=== PATIENT | male | born 1950 | race Hispanic/Latino ===

== ENCOUNTER 2016-08-17 11:53 | Emergency (ER) | payer MEDICARE, BC ==
[2016-08-17 11:54] VITALS: PULSE 74; BMI 26.3
--- NOTE | 2016-08-17 12:13 | ED PDOC ---
Arrival/HPI - General Chief Complaint: Back Pain Time Seen by Provider: 08/17/16 12:00 - History of Present Illness Narrative History of Present Illness (Text): 08/17/16 12:28 Patient presents complaing of back pain. States the location is in the right lower lumbar region, feels like muscle spasms. Worst with movement and palpation. Pt states this feels identical to previous back pain quality that have happened in the past. Denies fevers/chills, denies IVDA, denies any lower extremity weakness/numbness/paresthesias. Pt denies saddle anesthesia. Denies any urinary freq or retention. Denies bowel dysfunction/irregularity/ incontinence/constipation. Patient's home delivery driver, his daughter, is with him. She states that patient has a history of dementia/Alzheimer's, and that he is acting baseline. Past Medical History - Provider Review Nursing Documentation Reviewed: Yes - Past History Past History: Non-Contributing - Infectious Disease Hx of Infectious Diseases: None - Tetanus Immunization Tetanus Immunization: Unknown - Cardiac Hx Cardiac Arrhythmia: Yes Hx Hypertension: Yes Hx Pacemaker: No - Pulmonary Hx Respiratory Disorders: No - Neurological Hx Dementia: Yes - Renal Hx Renal Disorder: No - Endocrine/Metabolic Hx Endocrine Disorders: No - Hematological/Oncological Hx Blood Disorders: No - Integumentary Hx Dermatological Disorder: No - Musculoskeletal/Rheumatological Hx Musculoskeletal Disorders: Yes Hx Back Pain: Yes Hx Falls: Yes - Gastrointestinal Hx Gastrointestinal Disorders: No - Genitourinary/Gynecological Hx Genitourinary Disorders: No - Psychiatric Hx Anxiety: Yes Hx Post Traumatic Stress Disorder: Yes Hx Substance Use: No - Surgical History Hx Coronary Stent: Yes - Anesthesia Hx Anesthesia Reactions: No Hx Malignant Hyperthermia: No - Suicidal Assessment Feels Threatened In Home Enviroment: No Family/Social History - Physician Review Nursing Documentation Reviewed: Yes Family/Social History: Unknown Family HX Smoking Status: Former Smoker Hx Alcohol Use: Yes (SOCIAL- BEER) Hx Substance Use: No Hx Substance Use Treatment: No Allergies/Home Meds Allergies/Adverse Reactions: Allergies No Known Allergies Allergy (Verified 08/17/16 12:03) Home Medications: Home Meds Medication Instructions Recorded Confirmed Enalapril Maleate [Vasotec] 5 mg PO BID 12/16/15 03/23/16 Hydrochlorothiazide [HCTZ] 25 mg PO DAILY 12/16/15 03/23/16 Aspirin [Aspirin Chewable] 81 mg PO DAILY 03/23/16 03/23/16 Atorvastatin [Lipitor] 10 mg PO DAILY 03/23/16 03/23/16 Donepezil HCl [Aricept Odt] 5 mg PO HS 03/23/16 03/23/16 Fexofenadine HCl [Julieta NF] 180 mg PO DAILY 03/23/16 03/23/16 Fluticasone Nasal [Flonase] 1 spr BAYLEE DAILY 03/23/16 03/23/16 Naproxen 500 mg PO BID 03/23/16 03/23/16 Review of Systems - Physician Review All systems were reviewed & negative as marked: Yes Physical Exam - Physical Exam Narrative Physical Exam (Text): 08/17/16 12:29 - Review of Systems Constitutional: Normal. absent: Fatigue, Weight Change, Fevers Eyes: Normal ENT: denies sore throat, denies tristhmus Respiratory: Normal. absent: SOB, Cough, Sputum Cardiovascular: absent: Chest Pain, Palpitations, Syncope Gastrointestinal: Normal. absent: Abdominal Pain, Diarrhea, Nausea, Vomiting Genitourinary: Normal. absent: Dysuria, Frequency, Hematuria Musculoskeletal: Back Pain. absent: Arthralgias, Neck Pain Skin: no rashes, no erythema Neurological: absent: Focal Weakness Endocrine: Normal Hemo/Lymphatic: Normal Psychiatric: No suicidal or homicidal ideations Physical exam Patient appears age appropriate in no distress, speaking full sentences without difficulty Increased hypertonicity appreciated in the right lower lumbar region, pain quality reproduced with palpation of right PSIS. No midline tenderness. FROM of pt's cervical, thoracic, lumbar, and sacral regions appreciated, active/passive without any difficulty. Lower extremities with full neurological and vascular intact. Steady gait. - Systems Exam Head: Present: Atraumatic, Normocephalic Pupils: Present: PERRL Extroacular Muscles: Present: EOMI Conjunctiva: Present: Normal Mouth: Present: Moist Mucous Membranes Neck: Present: Normal Range of Motion. No: MIDLINE TENDERNESS, Paraspinal Tenderness Respiratory/Chest: Present: Clear to Auscultation, Good Air Exchange. No: Respiratory Distress, Accessory Muscle Use, Tachypneic Cardiovascular: Present: Regular Rate and Rhythm, Normal S1, S2, Peripheal Pulses Present. No: Murmurs Abdomen: Present: Normal Bowel Sounds. No: Tenderness, Distention, Peritoneal Signs, Rebound, Guarding Back: Present: Normal Inspection. No: Midline Tenderness, Paraspinal Tenderness Upper Extremity: Present: Normal Inspection. No: Cyanosis, Edema Lower Extremity: Present: Normal Inspection. No: Edema Neurological: Present: GCS=15, Speech Normal, cranial nerves II through XII fully intact with no cerebellar abnormality, neurosensory fully intact. No focal neurological deficits. Ambulates with assistance. Baseline as per daughter. Skin: Present: Warm, Dry, Normal Color. No: Rashes Lymphatic: Present: OX3, NI, NC Vital Signs Reviewed: Yes Vital Signs Temp Pulse Resp BP Pulse Ox 08/17/16 11:55 97.4 F L 90 18 121/76 97 Temperature: Afebrile Blood Pressure: Normal Pulse: Regular Respiratory Rate: Normal Appearance: Positive for: Well-Appearing, Non-Toxic Pain Distress: None Mental Status: No: Agitated, Lethargic Medical Decision Making ED Course and Treatment: pt received Toradol reported symptomatic relief. Pt states is not driving home. Based on hx and physical, no suspicion for renal involvement, cord impingement or epidural/spinal abscess stable for dc home. Patient's daughter states that she will follow-up with an network applications specialist as well as patient's primary physician Pt verbalized understands to return to the ER right away for new or worsening symptoms or for inability to f/u with PMD or specialist as instructed. Patient's home delivery driver verbalized full agreement with and understanding of discharge instructions. States that she agrees with the plan and disposition. Verbalized and repeated discharge instructions and plan. I have given the patient opportunity to ask any additional questions. Prior Visits: Notes and results from previous visits were reviewed. Patient last seen in the ED on 03/23/16 for lower back pain and discharged home with Percocet. CT Lumbar Spine 03/23/16: IMPRESSION: Bilateral spondylolysis at L5 with spondylolisthesis at L5-S1. Moderate stenosis at L4-5 and mild stenosis at L3-4 - Medication Orders Current Medication Orders: Ketorolac Tromethamine (Toradol) 30 mg IM STAT STA Stop: 08/17/16 12:27 - Scribe Statement The provider has reviewed the documentation as recorded by the Lucille Pascal Provider Scribe Attestation: All medical record entries made by the Scribe were at my direction and personally dictated by me. I have reviewed the chart and agree that the record accurately reflects my personal performance of the history, physical exam, medical decision making, and the department course for this patient. I have also personally directed, reviewed, and agree with the discharge instructions and disposition. Disposition/Present on Arrival - Present on Arrival Any Indicators Present on Arrival: No History of DVT/PE: No History of Uncontrolled Diabetes: No Urinary Catheter: No History of Decub. Ulcer: No History Surgical Site Infection Following: None - Disposition Have Diagnosis and Disposition been Completed?: Yes Diagnosis: Back pain Disposition: HOME/ ROUTINE Disposition Time: 12:36 Patient Plan: Discharge Condition: GOOD Discharge Instructions (ExitCare): Chronic Back Pain (ED) Additional Instructions: PLEASE RETURN TO THE EMERGENCY DEPARTMENT FOR NEW OR WORSENING SYMPTOMS. RETURN RIGHT AWAY IF YOU CANNOT FOLLOW UP WITH YOUR PRIMARY CARE DOCTOR, CLINIC, OR SPECIALIST IN 1-2 DAYS. Please take either [id number] Motrin or Tylenol for pain Do not take Motrin with your prescription Naprosyn together Referrals: Esteban Powell MD [Staff Provider] - Follow up with primary Quan Mo MD [Staff Provider] - Follow up with primary Castro Llamas DO [Staff Provider] - Follow up with primary Rajendra Neal III, MD [Medical Doctor] - Follow up with primary Antonio Obando MD [Staff Provider] - Follow up with primary
[2016-08-17 12:28] VITALS: BP 121/76; PULSE 90; RESP 18; TEMP 97.4; O2SAT 97
== END 2016-08-17 12:44 | disposition home or self-care (01) ==
LOC: ED 11:53
DX: M54.9 Dorsalgia, unspecified (principal); I10 Essential (primary) hypertension; Z87.891 Personal history of nicotine dependence
CPT/HCPCS: 96372; 99282; J1885

== ENCOUNTER 2016-09-07 09:19 | Inpatient (IN) | payer MEDICARE, BC ==
[2016-09-07 09:19] VITALS: PULSE 74
[2016-09-07 09:50] VITALS: BMI 24.3
--- NOTE | 2016-09-07 10:18 | ED PDOC ---
Arrival/HPI - General Chief Complaint: Trauma Time Seen by Provider: 09/07/16 09:39 Historian: Patient - History of Present Illness Narrative History of Present Illness (Text): 09/07/16 09:58 Sam Shea is a 66 year old male whose past medical history includes Hypertension, Alzheimer, Thyroid Problems, and Excess Fluid of the Brain most likely Hydrocephalus, who presents to the emergency department because as per daughter the patient is becoming increasingly confused and disoriented. Also as per daughter the patient hasn't urinated since yesterday and has been falling more frequently nor is the patient willing/able to walk. The patient himself complains of abdominal discomfort, a mild headache and states he feels confused. Patient/daughter otherwise denies any fever, chills, chest pain, shortness of breath, nausea, vomiting, diarrhea, urinary symptoms, back pain, neck pain, dizziness, or any other complaints. PMD: Esteban Batista MD English Division Chair: Francisco Garza MD Time/Duration: 1 week Symptom Onset: Gradual Symptom Course: Worsening Activities at Onset: Light Context: Home Past Medical History - Provider Review Nursing Documentation Reviewed: Yes - Past History Past History: Non-Contributing - Infectious Disease Hx of Infectious Diseases: None - Tetanus Immunization Tetanus Immunization: Unknown - Cardiac Hx Cardiac Arrhythmia: Yes Hx Hypertension: Yes Hx Pacemaker: No - Pulmonary Hx Respiratory Disorders: No - Neurological Hx Alzheimer's Disease: Yes Hx Dementia: Yes - Renal Hx Renal Disorder: No - Endocrine/Metabolic Hx Endocrine Disorders: No - Hematological/Oncological Hx Blood Disorders: No - Integumentary Hx Dermatological Disorder: No - Musculoskeletal/Rheumatological Hx Musculoskeletal Disorders: Yes Hx Back Pain: Yes Hx Falls: Yes - Gastrointestinal Hx Gastrointestinal Disorders: No - Genitourinary/Gynecological Hx Genitourinary Disorders: No - Psychiatric Hx Anxiety: Yes Hx Post Traumatic Stress Disorder: Yes Hx Substance Use: No - Surgical History Hx Coronary Stent: Yes - Anesthesia Hx Anesthesia: Yes Hx Anesthesia Reactions: No Hx Malignant Hyperthermia: No - Suicidal Assessment Feels Threatened In Home Enviroment: No Family/Social History - Physician Review Nursing Documentation Reviewed: Yes Family/Social History: No Known Family HX Smoking Status: Former Smoker Hx Alcohol Use: Yes (SOCIAL- BEER) Hx Substance Use: No Hx Substance Use Treatment: No Allergies/Home Meds Allergies/Adverse Reactions: Allergies No Known Allergies Allergy (Verified 08/17/16 12:03) Home Medications: Home Meds Medication Instructions Recorded Confirmed Enalapril Maleate [Vasotec] 5 mg PO BID 12/16/15 09/07/16 Hydrochlorothiazide [HCTZ] 25 mg PO DAILY 12/16/15 09/07/16 Aspirin [Aspirin Chewable] 81 mg PO DAILY 03/23/16 09/07/16 Atorvastatin [Lipitor] 10 mg PO DAILY 03/23/16 09/07/16 Donepezil HCl [Aricept Odt] 5 mg PO HS 03/23/16 09/07/16 Fexofenadine HCl [Julieta NF] 180 mg PO DAILY 03/23/16 09/07/16 Naproxen 500 mg PO BID 03/23/16 09/07/16 Review of Systems - Physician Review All systems were reviewed & negative as marked: Yes - Review of Systems Constitutional: Normal. absent: Fevers Eyes: Normal ENT: Normal Respiratory: Normal. absent: SOB, Cough Cardiovascular: Normal. absent: Chest Pain Gastrointestinal: Abdominal Pain. absent: Diarrhea, Nausea, Vomiting Genitourinary Male: Normal. absent: Dysuria, Frequency, Hematuria, Urinary Output Changes Musculoskeletal: Normal. absent: Back Pain, Neck Pain Skin: Normal Neurological: Headache, Other (Confused/Disoriented). absent: Dizziness Endocrine: Normal Hemo/Lymphatic: Normal Psychiatric: Normal Physical Exam Vital Signs Reviewed: Yes Vital Signs Temp Pulse Resp BP Pulse Ox 09/07/16 13:30 95 H 95 09/07/16 13:28 90 11 L 157/75 H 97 09/07/16 13:24 94 L 09/07/16 12:35 84 16 115/81 99 09/07/16 09:36 98.0 F 90 18 122/72 98 Temperature: Afebrile Blood Pressure: Normal Pulse: Regular Respiratory Rate: Normal Appearance: Positive for: Non-Toxic, Comfortable, Ill-Appearing (Appears Weak) Pain Distress: None Mental Status: Positive for: Alert and Oriented X 3 - Systems Exam Head: Present: Atraumatic, Normocephalic Pupils: Present: PERRL (4mm equally reactive) Extroacular Muscles: Present: EOMI Conjunctiva: Present: Normal Mouth: Present: Moist Mucous Membranes Neck: Present: Normal Range of Motion Respiratory/Chest: Present: Clear to Auscultation, Good Air Exchange. No: Respiratory Distress, Accessory Muscle Use Cardiovascular: Present: Regular Rate and Rhythm, Normal S1, S2. No: Murmurs Abdomen: Present: Distention (Mildly Distended), Normal Bowel Sounds. No: Tenderness, Peritoneal Signs Lower Extremity: Present: Normal Inspection. No: Edema Neurological: Present: GCS=15, CN II-XII Intact, Speech Normal Skin: Present: Warm, Dry, Normal Color. No: Rashes Psychiatric: Present: Alert, Oriented x 3, Normal Insight, Normal Concentration Medical Decision Making ED Course and Treatment: 09/07/16 09:58 Impression: 66 year old male presenting due to increasingly becoming confused and weak. Differential Diagnosis include but are not limited to: AMS, Weakness r/o Worsening Hydrocephalus vs Electrolyte Abnormality vs Sepsis; Abdominal Pain/ Distention r/o Ascites r/o Obstruction Plan: -- Abd & Pel CT -- Head CT -- EKG -- Labs, cardiac enzymes, Urinalysis, Blood & Urine Cultures -- Reassess and disposition Prior Visits: Notes and results from previous visits were reviewed. Patient was last seen in the emergency department on 08/17/16 for abdominal and back pain. Progress Notes: EKG: Ordered, reviewed, and independently interpreted the EKG. Rate : 89 BPM Rhythm : NSR Interpretation : LBBB, PVCs 09/07/16 11:20 Sodium levels 109. 09/07/16 11:37 Case was discussed with Dr. Alarcon who is covering for the ICU and he agreed to accept patient to the ICU. He agrees with plan of NS IV at 100 mls/hr at this time and he will access further treatment. Case discussed with Dr. Goldstein ICU Resident who will f/u CT exams and results that are pending. Plan was discussed with patient and daughter who was at bedside. 09/07/2016 12:39 Procedure: CT Head Dictator : Bernardo Moody MD Impression: No acute intracranial hemorrhage. Moderate chronic white matter ischemic changes. Persistent dilatation of the lateral and 3rd ventricles on as above. Findings could be secondary to central volume loss however differential diagnosis would also include a chronic compensated obstructive hydrocephalus. The normal pressure hydrocephalus to be considered only if the clinical triad of dementia, ataxia and incontinence present. Overall the appearance of the ventricles are unchanged. 09/07/16 13:48 Procedure: CT Abdomen and Pelvis Dictator : Bernardo Moody MD Impression: Large pancreatic masses are likely representing pancreatic carcinoma. Multiple low-attenuation foci scattered throughout the liver consistent metastasis however multifocal hepatocellular carcinoma not excluded.Findings also suggest underlying cirrhosis with slightly nodular appearing liver surface contour, varices in the left upper quadrant of the abdomen and massive ascites. Hyperdense material within the dependent portion of the gallbladder could represent layering hyperdense sludge or gravel. See discussion for additional findings and details. CT results obtained. Dr. Beltrán, ICU attending made aware and she will discuss with Dr. Alarcon. She will also place a consult for Neurosx for Hydrocephalus. - Critical Care Critical Care Minutes: 30 minutes - Lab Interpretations Lab Results: 09/07/16 10:37 09/07/16 10:37 Lab Results 09/07/16 10:37: Sodium 109 L* D, Potassium 3.7, Chloride 75 L, Carbon Dioxide 26 , Anion Gap 12, BUN 17, Creatinine 0.8, Est GFR ( Amer) > 60, Est GFR ( Non-Af Amer) > 60, Random Glucose 128 H, Calcium 8.8, Phosphorus 3.4, Magnesium 2.0, Total Bilirubin 1.0, AST 48, ALT 46, Alkaline Phosphatase 82, Lactate Dehydrogenase 572, Total Creatine Kinase 218, Troponin I 0.02 D, Total Protein 6.9, Albumin 3.7, Globulin 3.1, Albumin/Globulin Ratio 1.2 09/07/16 10:37: PT 11.3, INR 1.05, APTT 29.7 09/07/16 10:37: WBC 7.4 D, RBC 3.62, Hgb 10.5 L, Hct 28.4 L, MCV 78.5 L, MCH 29.0, MCHC 37.0, RDW 12.4, Plt Count 159, MPV 8.5, Gran % 87.9 H, Lymph % (Auto ) 5.8 L, Otoe % (Auto) 5.5, Eos % (Auto) 0.7 L, Baso % (Auto) 0.1, Gran # 6.50, Lymph # 0.4 L, Otoe # 0.4, Eos # 0.1, Baso # 0.01 09/07/16 10:10: Urine Color Yellow, Urine Appearance Clear, Urine pH 6.5, Ur Specific [place] 1.015, Urine Protein Negative, Urine Glucose (UA) Negative, Urine Ketones Trace H, Urine Blood Negative, Urine Nitrate Negative, Urine Bilirubin Negative, Urine Urobilinogen 1.0 H, Ur Leukocyte Esterase Negative I have reviewed the lab results: Yes - RAD Interpretation Narrative RAD Interpretations (Text): 09/07/2016 12:39 Procedure: CT Head Dictator : Bernardo Moody MD FINDINGS: HEMORRHAGE: No intracranial hemorrhage. BRAIN: Moderate chronic white matter ischemic changes seen extending peripherally into the deep and subcortical white matter both cerebral hemispheres. . VENTRICLES: Significant enlargement of the 3rd and lateral ventricles with the normal- appearing 4th ventricle. Findings are likely due to central volume loss however the possibility chronic compensated obstructive hydrocephalus to be considered. Normal pressure hydrocephalus to be considered only the clinical triad of dementia, ataxia and incontinence present. Overall the appearance of the ventricles are unchanged CALVARIUM: No acute calvarial fractures. PARANASAL SINUSES: Mild mucosal thickening seen within the ethmoid air complex. MASTOID AIR CELLS: Unremarkable as visualized. No inflammatory changes. OTHER FINDINGS: None. Impression: No acute intracranial hemorrhage. Moderate chronic white matter ischemic changes. Persistent dilatation of the lateral and 3rd ventricles on as above. Findings could be secondary to central volume loss however differential diagnosis would also include a chronic compensated obstructive hydrocephalus. The normal pressure hydrocephalus to be considered only if the clinical triad of dementia, ataxia and incontinence present. Overall the appearance of the ventricles are unchanged. 09/07/16 13:48 Procedure: CT Abdomen and Pelvis Dictator : Bernardo Moody MD FINDINGS: LOWER THORAX: There are multiple small nodular opacity seen in the right lung base with atelectasis and or scarring in the left lung base. No basilar pneumothorax. Heart is enlarged. No significant pericardial effusion. LIVER: The liver is diminutive and contains multiple varying sized foci of low attenuation. Findings may represent hepatic metastasis however possibility of multi focal opacity carcinoma to be excluded. Liver exhibits a slight nodular surface contour and there are multiple serpiginous enhancing vessels in the left upper quadrant of the abdomen with massive ascites. Findings also likely represent concomitant underlying cirrhosis with portal hypertension. GALLBLADDER AND BILE DUCTS: Gallbladder is physiologically distended. Layering radio-opaque sludge and or gravel the dependent portion of the gallbladder. PANCREAS: There is a large is (5.24 trans x 3.61 AP 3.25 cc) ill-defined mass seen within mid body and pancreatic head region most likely represents a pancreatic carcinoma. SPLEEN: The spleen exhibits normal size measuring 11.15 cm. No splenic mass collection or calcification. ADRENALS: Small approximately 11 mm right adrenal hypodense nodule. The left adrenal gland is mildly enlarged and somewhat nodular in appearance with a small approximately 5.6 mm calcification KIDNEYS AND URETERS: The kidneys exhibit symmetric nephrograms. No evidence of nephrolithiasis. There is mild dilatation of the left renal collecting system left renal pelvis and and proximal left ureter over short distance. Rule out chronic UPJ. There are several small rounded/elliptical shaped low-attenuation foci both kidneys statistically likely representing renal cysts however ultrasound correlation could confirm. VASCULATURE: The abdominal vasculature grossly unremarkable. No evidence of abdominal aortic aneurysm. Calcified atherosclerotic plaque present along the abdominal aorta and iliac arteries. BOWEL: Evaluation of the bowel is somewhat limited due to CT of the lack of oral contrast material and massive ascites. Stomach is underdistended which presumably accounts for thick-walled appearance. Visualized loops of small bowel exhibit normal caliber and contour without evidence of acute mechanical bowel obstruction. Mild wall thickening of loops of small bowel could be due to ascites. Stool and air seen throughout the colon consistent with mild fecal retention/ constipation. No evidence of acute mechanical bowel obstruction. APPENDIX: Appendix not seen with certainty on this study. PERITONEUM: No gross free intraperitoneal air. LYMPH NODES: There appears to be retro several small retroperitoneal and peripancreatic lymph nodes. BLADDER: Urinary bladder is incompletely distended which may account for thick-walled appearance. Muscular hypertrophy presumably contributes. Possibility of cystitis not excluded REPRODUCTIVE: Unremarkable. BONES: Multilevel degenerative spondylosis of the lower thoracic and lumbar spine. Bilateral pars interarticularis and grade 1 spondylolisthesis L5-S1 level. OTHER FINDINGS: None. Impression: Large pancreatic masses are likely representing pancreatic carcinoma. Multiple low-attenuation foci scattered throughout the liver consistent metastasis however multifocal hepatocellular carcinoma not excluded.Findings also suggest underlying cirrhosis with slightly nodular appearing liver surface contour, varices in the left upper quadrant of the abdomen and massive ascites. Hyperdense material within the dependent portion of the gallbladder could represent layering hyperdense sludge or gravel. See discussion for additional findings and details. Radiology Orders: 09/07/16 10:10 HEAD W/O CONTRAST [CT] Stat 09/07/16 10:13 ABD & PELVIS IV CONTRAST ONLY [CT] Stat Outpatient Physical Therapist Assistant: Radiologist - EKG Interpretation Interpreted by ED Physician: Yes Type: 12 lead EKG - Medication Orders Current Medication Orders: Acetaminophen (Tylenol 325mg Tab) 650 mg PO Q6H PRN PRN Reason: Fever >100.4 F Sodium Chloride (Sodium Chloride 0.9%) 1,000 mls @ 100 mls/hr IV .Q10H TEODORO Last Admin: 09/07/16 11:00 Dose: 100 mls/hr Ceftriaxone Sodium (Rocephin 2 Gm Ivpb) 2 gm in 100 mls @ 100 mls/hr IVPB DAILY TEODORO PRN Reason: Protocol Ondansetron HCl (Zofran Inj) 4 mg IVP Q8H PRN PRN Reason: Nausea/Vomiting Discontinued Medications Iohexol (Omnipaque 350 100 Ml) Confirm Administered Dose 350 mg .ROUTE .[facility] Stop: 09/07/16 11:33 - Scribe Statement The provider has reviewed the documentation as recorded by the Trentibmakayla Jones Provider Attestation: All medical record entries made by the Scribmakayla were at my direction and personally dictated by me. I have reviewed the chart and agree that the record accurately reflects my personal performance of the history, physical exam, medical decision making, and the department course for this patient. I have also personally directed, reviewed, and agree with the discharge instructions and disposition. Disposition/Present on Arrival - Present on Arrival Any Indicators Present on Arrival: No History of DVT/PE: No History of Uncontrolled Diabetes: No Urinary Catheter: No History of Decub. Ulcer: No History Surgical Site Infection Following: None - Disposition Have Diagnosis and Disposition been Completed?: Yes Diagnosis: Altered mental status, Ascites, Pancreatic mass, Hydrocephalus, Hyponatremia Disposition: HOSPITALIZED Disposition Time: 11:37 Patient Plan: Admission, ICU Condition: CRITICAL
[2016-09-07 10:38] LABS: ADD MANUAL DIFF? NO
[2016-09-07 10:43] LABS: BASO # 0.01 K/mm3 (0.0-2.0); BASO % 0.1 % (0.0-3.0); EOS # 0.1 (0.0-0.7); EOS % 0.7 % (1.5-5.0); GRAN % 87.9 % (50.0-68.0); HEMATOCRIT 28.4 % (42.0-52.0); LYMPH # 0.4 (1.2-3.4); LYMPH % 5.8 % (22.0-35.0); MEAN CELL VOLUME 78.5 fL (80.0-105.0); MEAN PLATELET VOLUME 8.5 fl (7.0-11.0); MONO # 0.4 (0.1-0.6); MONO % 5.5 % (1.0-6.0); PLATELET COUNT 159 10^3/uL (120.0-450.0); RED CELL DISTRIBUTION WIDTH 12.4 % (11.5-14.5); WHITE BLOOD COUNT 7.4 10^3/ul (4.5-11.0)
[2016-09-07 10:53] LABS: ALB/GLOB RATIO 1.2 (1.1-1.8); ALKALINE PHOSPHATASE 82 U/L (38-133); ALT/SGPT 46 U/L (7-56); AST/SGOT 48 U/L (15-59); BLOOD UREA NITROGEN 17 mg/dL (7-21); CALCIUM 8.8 mg/dL (8.4-10.5); CARBON DIOXIDE 26 mmol/L (21-33); CHLORIDE 75 mmol/L (98-107); GFR AFRICAN-AMERICAN > 60; GLUCOSE,RANDOM 128 mg/dL (70-110); INR 1.05 (0.93-1.08); PARTIAL THROMBOPLASTIN TIME 29.7 Seconds (23.7-30.8); PHOSPHOROUS 3.4 mg/dL (2.5-4.5); POTASSIUM 3.7 mmol/L (3.6-5.0); TOTAL PROTEIN 6.9 g/dL (5.8-8.3)
[2016-09-07 10:55] LABS: SODIUM 109 mmol/L (132-148)
[2016-09-07 10:59] LABS: PH,URINE 6.5 (4.7-8.0); URINE BILIRUBIN NEGATIVE (NEGATIVE); URINE BLOOD NEGATIVE (NEGATIVE); URINE GLUCOSE (UA) NEGATIVE (NEGATIVE); URINE KETONE TRACE mg/dL (NEGATIVE); URINE LEUKOCYTE ESTERASE NEGATIVE Leu/uL (NEGATIVE); URINE PROTEIN NEGATIVE mg/dL (<30 mg/dL)
[2016-09-07] MEDS ORDERED: Sodium Chloride 0.9% 1,000 ML IV SCH (11:00)
[2016-09-07 11:04] LABS: TROPONIN I 0.02 ng/mL
[2016-09-07 11:09] LABS: URINE APPEARANCE CLEAR (CLEAR); URINE COLOR YELLOW (YELLOW)
[2016-09-07] MEDS ORDERED: Iohexol 350 MG/100 ML VIAL ONE (11:32)
--- NOTE | 2016-09-07 12:14 | CP.PCM.CON ---
History of Present Illness - History of Present Illness History of Present Illness: PGY-[address] Richardson Alarcon ICU Consult: AMS on setting of hyponatremia 66 M, whose PMHx includes Alzheimer, CAD s/p stents, CHF (diastolic and systolic ), HTN, Thyroid Problems, and chronic Hydrocephalus, presents to the emergency department because as per daughter the patient is becoming increasingly confused , lost of balance, falls, and generalized weakness x 1 week. At baseline, pt was AAOx3, able to ambulate with wide step shuffling gaits with support, rarely having urinary incontinence. 1 week ago, daughter noticed pt has increase confusion, falling several times, having bowel and bladder incontinence. Pt hasn 't urinated since yesterday and has been falling more frequently nor is the patient willing/able to walk. The patient himself complains of abdominal discomfort, a mild headache and states he feels confused. Pt is a poor historian ROS - (+) New dry cough x 2 days. (+) abdominal pain general. (+) no urination. Patient/daughter otherwise denies any fever, chills, chest pain, shortness of breath, nausea, vomiting, diarrhea, dizziness, or any other complaints. At ED arrival Temp 98, HR 80, RR 18, 122/72. 98RA WBC 7.4, Hb 10.5 (baseline 13), MCV 78.5, plt nl Na 109, K 3.7, Cl 75, CO 26 BUN 17, Cre 0.8 Trop 0.02, CK 218 U/A (+) ketone and urobinlniogen Blood and urine culture sent EKG, NSR 89, LBBB, PVCs CT scan head - hydrocephalus, no change CT abd/pelvis with IV - pancreas and liver masses, massive ascites Straight cath at ED = 650cc. Gu at ED = 300cc On NS @ 100 PMH Chronic hydrocephalus, s/p lumbar puncture for CSF removal; pt refused shunt Hx cerebral ventricular dilatation, stable (CT head 2-16) CAD with multiple vessel PTCA/Stents (LAD, RCA) Dilated cardiomyopathy with systolic dysfunction, LVEF 49% (Echo 2014) PTSD, anxiety PSH Cardiac cath and stents Ventral hernia repair FH Prostate cancer "GI issues" SH Former smoker, last smoke 30 years ago 5 beer per day for many years, last drink 2 weeks ago All NKDA Med ASA 81, Lipitor 10 Enalapril 5 BID, HCTZ 25 daily Donepezil 5 HS Julieta 180, Flonase 1 spr BAYLEE Naproxen 500 BID PRN for back pain PMD: Esteban Batista MD Assignment Officer: Francisco Garza MD Neurologist: Dr Lee Urology: Dr. Mathews GI: Dr. George Past Patient History - Infectious Disease Hx of Infectious Diseases: None - Tetanus Immunizations Tetanus Immunization: Unknown - Past Social History Smoking Status: Former Smoker - CARDIAC Hx Cardia Arrhythmia: Yes Hx Hypertension: Yes Hx Pacemaker: No - PULMONARY Hx Respiratory Disorders: No - NEUROLOGICAL Hx Alzheimer's Disease: Yes Hx Dementia: Yes - RENAL Hx Chronic Kidney Disease: No - ENDOCRINE/METABOLIC Hx Endocrine Disorders: No - HEMATOLOGICAL/ONCOLOGICAL Hx Blood Disorders: No - INTEGUMENTARY Hx Dermatological Problems: No - MUSCULOSKELETAL/RHEUMATOLOGICAL Hx Musculoskeletal Disorders: Yes Hx Back Pain: Yes Hx Falls: Yes - GASTROINTESTINAL Hx Gastrointestinal Disorders: No - GENITOURINARY/GYNECOLOGICAL Hx Genitourinary Disorders: No - PSYCHIATRIC Hx Anxiety: Yes Hx Post Traumatic Stress Disorder: Yes Hx Substance Use: No - SURGICAL HISTORY Hx Coronary Stent: Yes - ANESTHESIA Hx Anesthesia: Yes Hx Anesthesia Reactions: No Hx Malignant Hyperthermia: No Meds Allergies/Adverse Reactions: Allergies Allergy/AdvReac Type Severity Reaction Status Date / Time No Known Allergies Allergy Verified 08/17/16 12:03 - Medications Medications: Current Medications Sodium Chloride (Sodium Chloride 0.9%) 1,000 mls @ 100 mls/hr IV .Q10H TEODORO Last Admin: 09/07/16 11:00 Dose: 100 mls/hr Physical Exam - Constitutional Appears: Confused - Head Exam Head Exam: ATRAUMATIC, NORMOCEPHALIC - Eye Exam Eye Exam: EOMI, Normal appearance, PERRL. absent: Scleral icterus Pupil Exam: NORMAL ACCOMODATION, PERRL - ENT Exam ENT Exam: Mucous Membranes Moist - Neck Exam Neck exam: Negative for: Meningismus - Respiratory Exam Respiratory Exam: Clear to Auscultation Bilateral, NORMAL BREATHING PATTERN - Cardiovascular Exam Cardiovascular Exam: REGULAR RHYTHM, +S1, +S2 - GI/Abdominal Exam GI & Abdominal Exam: Distended, Hyperactive Bowel Sounds, Soft Additional comments: shifting dullness on percussion - Extremities Exam Extremities exam: Positive for: pedal pulses present. Negative for: calf tenderness - Back Exam Back exam: absent: CVA tenderness (L), CVA tenderness (R) - Neurological Exam Neurological exam: Alert - Psychiatric Exam Psychiatric exam: Normal Affect, Normal Mood - Skin Skin Exam: Dry, Warm Results - Vital Signs Recent Vital Signs: Last Vital Signs Temp 98.0 F 09/07/16 09:36 Pulse 90 09/07/16 09:36 Resp 18 09/07/16 09:36 BP 122/72 09/07/16 09:36 Pulse Ox 98 09/07/16 09:36 - Labs Result Diagrams: 09/07/16 10:37 09/07/16 10:37 Assessment & Plan - Assessment and Plan (Free Text) Plan: 66M, with chronic hydrocephalus & CHF (diastolic and systolic), admitted in ICU for hyponatermia with AMS, abdominal pain, urinary retention, and fecal retention/constipation in the setting of massive ascites and new liver and pancreatic masses found on CT. Hyponatremia is chronic. Neural - Delirium - soft restrain as needed - NPO for aspiration precaution Cardio - Hx CAD - BP 110-150s. Pulm - Maintain SaO2 > 95 GI - Ceftriaxone 2g daily SBP prophylasix - GI consult for poss fecal disimpaction, liver/pancreatic masses, ascites - IR consult for paracentesis Ordered: Ascite perotoneal Cell count and differential, albumin, total protein, CEA, amylase, lipase, LDH, tg, glucose, Culture, gramstain, cytology Renal - urinary retention - Gu - strict i/o - Received IV contrast, NS@100 Endo - Chronic Hyponatremia - do not over-correct more than 12 meq/day. Goal is correct from Na 109 to Na 115, pending nephro rec. NS@100 should raise only 0.2 mEq/hr - Etiology Uosmo > 100 Antonietta < 14 Etiology: Hypervolemic more likely, from CHF vs Cirrhosis. Pending BNP (6pm) , CXR; MELD = 5 (1-yr survivial 100%) - maintain euglycemic Heme - microcytic anemia - occult blood in stool Infectious - Ceftriaxone 2g daily SBP prophylasix Prophylasix - protonix, heparin q12 Consult - Urol = Mathews - Nephro = Sipzner - Cardio = Garza - GI = George - IR = Carlo s/r/d/w Dr. Alarcon - Date & Time Date: 09/07/16 Time: 15:00
--- NOTE | 2016-09-07 12:42 | CT ---
PROCEDURE: CT HEAD WITHOUT CONTRAST. HISTORY: ams r/o hydroceph r/o cva COMPARISON: None available. TECHNIQUE: Axial computed tomography images were obtained through the head/brain without intravenous contrast. Radiation dose: Total exam DLP = 774.23 mGy-cm. This CT exam was performed using one or more of the following dose reduction techniques: Automated exposure control, adjustment of the mA and/or kV according to patient size, and/or use of iterative reconstruction technique. FINDINGS: HEMORRHAGE: No intracranial hemorrhage. BRAIN: Moderate chronic white matter ischemic changes seen extending peripherally into the deep and subcortical white matter both cerebral hemispheres. . VENTRICLES: Significant enlargement of the 3rd and lateral ventricles with the normal-appearing 4th ventricle. Findings are likely due to central volume loss however the possibility chronic compensated obstructive hydrocephalus to be considered. Normal pressure hydrocephalus to be considered only the clinical triad of dementia, ataxia and incontinence present. Overall the appearance of the ventricles are unchanged CALVARIUM: No acute calvarial fractures. PARANASAL SINUSES: Mild mucosal thickening seen within the ethmoid air complex. MASTOID AIR CELLS: Unremarkable as visualized. No inflammatory changes. OTHER FINDINGS: None. IMPRESSION: No acute intracranial hemorrhage. Moderate chronic white matter ischemic changes. Persistent dilatation of the lateral and 3rd ventricles on as above. Findings could be secondary to central volume loss however differential diagnosis would also include a chronic compensated obstructive hydrocephalus. The normal pressure hydrocephalus to be considered only if the clinical triad of dementia, ataxia and incontinence present. Overall the appearance of the ventricles are unchanged.
--- NOTE | 2016-09-07 13:28 | CARD ---
APPROVED REPORT EKG Measurement Heart [id number] <Conclusion> Poor data quality, interpretation may be adversely affected Sinus rhythm with occasional premature ventricular complexes Left bundle branch block Abnormal ECG
--- NOTE | 2016-09-07 13:50 | CT ---
PROCEDURE: CT Abdomen and Pelvis with contrast HISTORY: abd pain r/o obstruction COMPARISON: None. TECHNIQUE: Contrast dose: 100cc Radiation dose: Total exam DLP = 10 58.30 mGy-cm. This CT exam was performed using one or more of the following dose reduction techniques: Automated exposure control, adjustment of the mA and/or kV according to patient size, and/or use of iterative reconstruction technique. FINDINGS: LOWER THORAX: There are multiple small nodular opacity seen in the right lung base with atelectasis and or scarring in the left lung base. No basilar pneumothorax. Heart is enlarged. No significant pericardial effusion. LIVER: The liver is diminutive and contains multiple varying sized foci of low attenuation. Findings may represent hepatic metastasis however possibility of multi focal opacity carcinoma to be excluded. Liver exhibits a slight nodular surface contour and there are multiple serpiginous enhancing vessels in the left upper quadrant of the abdomen with massive ascites. Findings also likely represent concomitant underlying cirrhosis with portal hypertension. GALLBLADDER AND BILE DUCTS: Gallbladder is physiologically distended. Layering radio-opaque sludge and or gravel the dependent portion of the gallbladder. PANCREAS: There is a large is (5.24 trans x 3.61 AP 3.25 cc) ill-defined mass seen within mid body and pancreatic head region most likely represents a pancreatic carcinoma. SPLEEN: The spleen exhibits normal size measuring 11.15 cm. No splenic mass collection or calcification. ADRENALS: Small approximately 11 mm right adrenal hypodense nodule. The left adrenal gland is mildly enlarged and somewhat nodular in appearance with a small approximately 5.6 mm calcification KIDNEYS AND URETERS: The kidneys exhibit symmetric nephrograms. No evidence of nephrolithiasis. There is mild dilatation of the left renal collecting system left renal pelvis and and proximal left ureter over short distance. Rule out chronic UPJ. There are several small rounded/elliptical shaped low-attenuation foci both kidneys statistically likely representing renal cysts however ultrasound correlation could confirm. VASCULATURE: The abdominal vasculature grossly unremarkable. No evidence of abdominal aortic aneurysm. Calcified atherosclerotic plaque present along the abdominal aorta and iliac arteries. BOWEL: Evaluation of the bowel is somewhat limited due to CT of the lack of oral contrast material and massive ascites. Stomach is underdistended which presumably accounts for thick-walled appearance. Visualized loops of small bowel exhibit normal caliber and contour without evidence of acute mechanical bowel obstruction. Mild wall thickening of loops of small bowel could be due to ascites. Stool and air seen throughout the colon consistent with mild fecal retention/ constipation. No evidence of acute mechanical bowel obstruction. APPENDIX: Appendix not seen with certainty on this study. PERITONEUM: No gross free intraperitoneal air. LYMPH NODES: There appears to be retro several small retroperitoneal and peripancreatic lymph nodes. BLADDER: Urinary bladder is incompletely distended which may account for thick-walled appearance. Muscular hypertrophy presumably contributes. Possibility of cystitis not excluded REPRODUCTIVE: Unremarkable. BONES: Multilevel degenerative spondylosis of the lower thoracic and lumbar spine. Bilateral pars interarticularis and grade 1 spondylolisthesis L5-S1 level. OTHER FINDINGS: None. IMPRESSION: Large pancreatic masses are likely representing pancreatic carcinoma. Multiple low-attenuation foci scattered throughout the liver consistent metastasis however multifocal hepatocellular carcinoma not excluded. Findings also suggest underlying cirrhosis with slightly nodular appearing liver surface contour, varices in the left upper quadrant of the abdomen and massive ascites. Hyperdense material within the dependent portion of the gallbladder could represent layering hyperdense sludge or gravel. See above discussion for additional findings and details. Findings discussed with Dr. Copeland at approximately 1300 p.m. with written down and read back verification.
[2016-09-07] MEDS: cefTRIAXone 2 GM IN NS 2 GM/100 ML BAG IVPB SCH (17:19)
[2016-09-07 17:46] LABS: VENOUS BLOOD GAS BASE EXCESS 2.4 mmol/L (0.0-2.0)
[2016-09-07 17:55] LABS: ALB/GLOB RATIO 1.1 (1.1-1.8); ALKALINE PHOSPHATASE 84 U/L (38-133); ALT/SGPT 54 U/L (7-56); AST/SGOT 48 U/L (15-59); BLOOD UREA NITROGEN 14 mg/dL (7-21); CALCIUM 8.6 mg/dL (8.4-10.5); CARBON DIOXIDE 23 mmol/L (21-33); CHLORIDE 78 mmol/L (98-107); GFR AFRICAN-AMERICAN > 60; GLUCOSE,RANDOM 103 mg/dL (70-110); POTASSIUM 3.6 mmol/L (3.6-5.0); TOTAL PROTEIN 6.6 g/dL (5.8-8.3)
[2016-09-07 18:03] LABS: SODIUM 111 mmol/L (132-148)
[2016-09-07 18:07] LABS: TROPONIN I 0.02 ng/mL
--- NOTE | 2016-09-07 18:30 | RAD ---
HISTORY: r/o CHF; new cough COMPARISON: 12/16/2015 FINDINGS: LUNGS: Poor inspiration with low lung volumes, crowded bronchovascular markings and mild bibasilar atelectasis. Developing lower lobe infiltrates could be excluded with followup radiographs. Central pulmonary vasculature is also slightly increased ; possibility of developing and or mild chronic compensated pulmonary edema/ CHF to be considered. PLEURA: No significant pleural effusion identified, no pneumothorax apparent. CARDIOVASCULAR: Cardiomegaly. OSSEOUS STRUCTURES: No significant abnormalities. VISUALIZED UPPER ABDOMEN: Normal. OTHER FINDINGS: None. IMPRESSION: Poor inspiration with low lung volumes, crowded bronchovascular markings and mild bibasilar atelectasis. Developing lower lobe infiltrates could be excluded with followup radiographs. Central pulmonary vasculature is also slightly increased ; possibility of developing and or mild chronic compensated pulmonary edema/ CHF to be considered.
--- NOTE | 2016-09-07 18:59 | CON ---
DATE: 09/07/2016 REQUESTING PHYSICIAN: Dr. Esteban Powell. CHIEF COMPLAINT: The patient presented with a history of falling this morning and noted to have hypo natremia. HISTORY OF PRESENT ILLNESS: The patient is a 66-year-old male that carries a diagnosis of hydrocepha anibal, altered mental status, Alzheimer dementia as well as hypertension, coronary artery disease and a nemia. The patient also has weakness in his lower extremities and has a history of frequent falling. The patient's family stated that he was found on the floor this morning, they felt that he had fall en, did not hurt himself and over the last 3-5 days his mental status as well as his ability to ambul ate has decreased dramatically. The patient also complains of abdominal discomfort with some distent ion, stating that he has not moved his bowels in quite a few days as per the family. No fever or chi lls. No nausea or vomiting. No diarrhea, no severe abdominal pain, no chest pain, no shortness of b reath, cough, wheezing or chest congestion. The patient has been followed by physicians at the [facility] for his hydrocephalus. It is noted on labs that he has hyponatremia and this may be secondary to polydipsia. Family member states that he has not been eating over the last several days and they have been trying to give him liquids to prevent dehydration. PAST MEDICAL HISTORY: As above. ALLERGIES: He has no known allergies. MEDICATIONS: Can be evaluated as per the nurses' intake form. SOCIAL HISTORY: He is a former smoker and in the past he did have a beer occasionally. No drug abus e. FAMILY HISTORY: Noncontributory. REVIEW OF SYSTEMS: Unable to obtain, patient is confused with altered mental status. PHYSICAL EXAMINATION: VITAL SIGNS: Note that his temperature is 98, his pulse is 90, respirations are 18, and BP is 122/72 , O2 saturation is 98% on room air. HEAD: Atraumatic, normocephalic. EYES: Reactive to light. EARS, NOSE AND THROAT: Seem to be within normal limits. NECK: Supple, no JVD, no thyroid enlargement, no lymph nodes. HEART: Has a regular rate and rhythm. Normal S1, S2. LUNGS: Reveal good breath sounds bilaterally. ABDOMEN: Soft, slightly distended, decreased bowel sounds. No organomegaly noted. GENITALIA AND RECTAL: Deferred. MUSCULOSKELETAL: No joint deformities. EXTREMITIES: Reveal 1+ lower extremity edema. NEUROLOGIC: He is confused, but moving all extremities. LABORATORY DATA: His white count is 7.4, hemoglobin is 10.5, hematocrit 28.4 with platelets of 159,0 00. Sodium is 109, potassium 3.7, chloride 75, CO2 of 26 with a BUN of 17, creatinine of 0.8 and a g lucose of 128. A CT of the head reveals that the patient has normal pressure hydrocephalus felt to b e chronic and stated that the overall appearance of the ventricles are unchanged from last CAT scan. No intracranial hemorrhage and there is moderate chronic white matter ischemic changes. CT scan of the abdomen is pending. IMPRESSION: This patient has hydrocephalus with altered mental status and generalized extremity weak ness. He has Alzheimer dementia and hyponatremia possibly secondary to polydipsia. The patient has a history of hypertension as well as coronary artery disease, anemia, having episodes of frequent fal ling and confusion. The patient has abdominal discomfort. It may be associated with fecal impaction . A CAT scan of the abdomen results are pending. PLAN: We will continue with normal saline IV and follow his electrolytes closely. The patient has h ad a neuro consult. Will get a GI consult for possible fecal impaction. The patient also will have a renal consult to evaluate the significant hyponatremia. Will continue to follow and treat chelsey foote along with the other consultants and the primary care doctor. Richardson Alarcon MD cc: [id number] TT: 09/07/2016 18:58:37 Confirmation # [id number] Dictation # [id number] karishma
[2016-09-07 23:37] LABS: TROPONIN I 0.02 ng/mL
[2016-09-08 00:27] LABS: ALB/GLOB RATIO 1.1 (1.1-1.8); ALKALINE PHOSPHATASE 85 U/L (38-133); ALT/SGPT 50 U/L (7-56); AST/SGOT 49 U/L (15-59); BILIRUBIN,TOTAL 0.9 mg/dL (0.2-1.3); BLOOD UREA NITROGEN 14 mg/dL (7-21); CALCIUM 8.4 mg/dL (8.4-10.5); CARBON DIOXIDE 24 mmol/L (21-33); CHLORIDE 78 mmol/L (98-107); GFR AFRICAN-AMERICAN > 60; POTASSIUM 3.6 mmol/L (3.6-5.0); TOTAL PROTEIN 6.3 g/dL (5.8-8.3)
[2016-09-08 00:29] LABS: SODIUM 111 mmol/L (132-148)
[2016-09-08 00:30] LABS: GLUCOSE,RANDOM 100 mg/dL (70-110)
[2016-09-08] MEDS ORDERED: Sodium Chloride 0.9% 1,000 ML IV SCH (00:34)
[2016-09-08] MEDS ORDERED: Sodium Chloride 0.9% 250 ML IV STA ×2 (00:37→23:41)
[2016-09-08 06:08] LABS: ALB/GLOB RATIO 1.1 (1.1-1.8); ALKALINE PHOSPHATASE 87 U/L (38-133); ALT/SGPT 53 U/L (7-56); AST/SGOT 48 U/L (15-59); BILIRUBIN,TOTAL 0.9 mg/dL (0.2-1.3); BLOOD UREA NITROGEN 13 mg/dL (7-21); CALCIUM 8.4 mg/dL (8.4-10.5); CARBON DIOXIDE 25 mmol/L (21-33); CHLORIDE 80 mmol/L (98-107); GFR AFRICAN-AMERICAN > 60; GLUCOSE,RANDOM 98 mg/dL (70-110); POTASSIUM 3.5 mmol/L (3.6-5.0); TOTAL PROTEIN 6.4 g/dL (5.8-8.3)
[2016-09-08 06:10] LABS: SODIUM 114 mmol/L (132-148)
[2016-09-08 06:15] LABS: HEMATOCRIT 28.3 % (42.0-52.0); MEAN CELL VOLUME 79.3 fL (80.0-105.0); MEAN CORPUSCULAR HEMOGLOBIN 28.3 pg (25.0-35.0); MEAN CORPUSCULAR HGB CONC 35.7 g/dl (31.0-37.0); PLATELET COUNT 149 10^3/uL (120.0-450.0); RED CELL DISTRIBUTION WIDTH 12.4 % (11.5-14.5); WHITE BLOOD COUNT 6.9 10^3/ul (4.5-11.0)
[2016-09-08 06:29] LABS: ADD MANUAL DIFF? YES
[2016-09-08 07:37] LABS: EOSINOPHIL 1 % (0.0-3.0); NEUTROPHIL 84 % (50.0-70.0)
[2016-09-08] MEDS: cefTRIAXone 2 GM IN NS 2 GM/100 ML BAG IVPB SCH (09:27)
--- NOTE | 2016-09-08 09:46 | PN ---
DATE: 09/08/2016 SUBJECTIVE: The patient is resting in bed with no respiratory distress. Still continues to be confu sed. No nausea, vomiting. No complaints of significant pain. Still has a distended abdomen, but it is soft and no pain. No complaints of pain. No diarrhea. PHYSICAL EXAMINATION: VITAL SIGNS: The patient's temperature is 99.2, his pulse is 71, respirations are 19, and BP is 137/ 76. SKIN: Warm and dry. HEAD: Atraumatic, normocephalic. EYES: Reactive to light. EARS, NOSE AND THROAT: Seem to be within normal limits. NECK: Supple. No JVD, no thyroid enlargement, no lymph nodes. HEART: Has a regular rate and rhythm. Normal S1, S2. LUNGS: Reveal rare rhonchi at the bases. ABDOMEN: Soft, but distended. Decreased bowel sounds. GENITALIA AND RECTAL: Deferred. MUSCULOSKELETAL: No joint deformities. EXTREMITIES: Reveal a small amount of lower extremity edema. NEUROLOGIC: The patient is confused, but moving all extremities. LABORATORIES: His white count is 6.9, hemoglobin is 10.1, hematocrit 28.3 with platelets of 149,000. Sodium is 114 with a potassium of 3.5, chloride of 80 and a CO2 of 25, BUN of 13, creatinine of 0.8 . Note that the patient's CEA is elevated to 358. As far as chest x-ray is concerned, the patient has poor inspiratory volumes with possible atelectasi s at the bases. There may be a developing lower lobe infiltrate and possible central pulmonary edema . There may be pulmonary edema or congestive heart failure developing. CT scan of the abdomen revea ls that there is a large pancreatic mass, most likely representing pancreatic carcinoma and there are multiple low attenuation foci scattered throughout the liver consistent with metastasis. There is u nderlying cirrhosis and a massive ascites. IMPRESSION: This patient has hyponatremia and hydrocephalus with altered mental status. The patient has a pancreatic mass, which most likely represents carcinoma with metastatic lesions to the liver. He has significant ascites as well. The patient has a history of hypertension as well as coronary a rtery disease, anemia and episodes of frequent falling. PLAN: We will continue with normal saline IV and follow his sodium closely. The patient has a neuro as well as renal and GI consults. We will monitor him hemodynamically and follow his chest x-ray an d respiratory status closely. We will continue to treat aggressively along with the other business transformation consultant s and the primary care doctor. Richardson Alarcon MD cc: [id number] TT: 09/08/2016 09:45:08 Confirmation # [id number] Dictation # [id number]
[2016-09-08 12:57] LABS: BLOOD UREA NITROGEN 12 mg/dL (7-21); CALCIUM 8.3 mg/dL (8.4-10.5); CARBON DIOXIDE 27 mmol/L (21-33); CHLORIDE 82 mmol/L (98-107); GFR AFRICAN-AMERICAN > 60; GLUCOSE,RANDOM 93 mg/dL (70-110); POTASSIUM 3.7 mmol/L (3.6-5.0)
[2016-09-08 13:01] LABS: SODIUM 115 mmol/L (132-148)
[2016-09-08 13:20] LABS: IRON 39 ug/dL (45-180)
--- NOTE | 2016-09-08 15:13 | HP ---
HISTORY OF PRESENT ILLNESS: The patient is a 66-year-old man with a past medical history of coronary artery disease status post percutaneous coronary intervention with stent placement, dilated cardiomyopathy, Alzheimer dementia and chronic hydrocephalus, who presented to [facility] Emergency Department for evaluation of a 2-week history of progressively worsening altered mental status, recurrent falls, generalized weakness and decreased p.o. intake. The patient's daughter reports that for the past 7-10 days, the patient has been having moments of altered sensorium with visual hallucinations. The patient has also had significantly decreased p.o. intake over the same time period and has 3 witnessed mechanical falls. Given the progression of his symptoms, the patient's daughter opted for evaluation in the Emergency Department. Upon arrival to the ED, the patient was noted to be afebrile and hemodynamically stable. However, he was noted to be confused. A CT of the head which was obtained demonstrated the patient's chronic ischemic changes and persistent dilatation of the lateral and third ventricles, which was unchanged from prior imaging studies. Laboratory studies, however, demonstrated profound hyponatremia with a serum sodium of 109. The patient was promptly evaluated by the rn quality and subsequently transferred to the ICU for continued management of symptomatic hyponatremia. Of note, as part of an ongoing workup, the patient also underwent a CT of the abdomen and pelvis, which demonstrated large ascites with a large pancreatic mass, likely representing pancreatic carcinoma with multiple scattered lesions to the liver consistent with metastases. PAST MEDICAL HISTORY: As per HPI. Also, history of PTSD and anxiety disorder. PAST SURGICAL HISTORY: As per HPI. Also, history of ventral hernia repair. ALLERGIES: No known drug allergies. MEDICATIONS: Aspirin 81 mg p.o. daily, Lipitor 10 mg p.o. daily, enalapril 5 mg p.o. b.i.d., hydrochlorothiazide 25 mg p.o. daily, donepezil 5 mg p.o. at bedtime, Naprosyn 500 mg p.o. b.i.d. p.r.n. FAMILY HISTORY: Significant for prostate cancer in the father. SOCIAL HISTORY: The patient reports a former [id number] smoking history and active daily alcohol use. He denies illicit drug abuse. REVIEW OF SYSTEMS: Significant for malaise, decreased p.o. intake, decreased urination and abdominal distention. Negative for fevers, chills, rigors, chest pain, dyspnea, orthopnea, nausea, vomiting, diarrhea or syncope. PHYSICAL EXAMINATION: VITAL SIGNS: Temperature 98.2, pulse 96, blood pressure of 124/76, respiratory rate 20, oxygen saturation 100% on 2 liters nasal cannula. GENERAL: Frail, elderly man, appearing his stated age, lying in bed, in no apparent distress. HEENT: Normocephalic, atraumatic, PERRL, EOMI, no scleral icterus. Mild conjunctival pallor is noted. NECK: No JVD. LUNGS: Decreased breath sounds to the bases with bibasilar crackles. CARDIOVASCULAR: Regular rate and rhythm, normal S1 and S2. ABDOMEN: Normoactive bowel sounds, soft, distended with ascites. No rigidity, no tympany, no tenderness. EXTREMITIES: Trace bilateral lower extremity edema. NEUROLOGIC: Awake and alert, oriented to person, able to follow simple commands. LABORATORY DATA: WBC 6.9 with 84% neutrophils, hemoglobin 10, hematocrit 28, platelets 149, MCV 79. Sodium 114, potassium 3.5, chloride 80, bicarbonate 25, BUN 13, creatinine 0.8, glucose 98. BNP 1050. CEA 358. IMAGING STUDIES: CT of the head, which demonstrates chronic white matter ischemic changes and persistent dilatation of the lateral and third ventricles ( no change from prior). CT of the abdomen and pelvis with IV contrast, which demonstrates large pancreatic masses, likely representing pancreatic carcinoma and multiple scattered foci through the liver, consistent with metastatic disease and large ascites. ASSESSMENT: The patient is a 66-year-old man with multiple medical comorbidities who presented to the Emergency Department for evaluation of a 10- day history of malaise, recurrent falls, decreased p.o. intake, altered mental status and abdominal distention. PLAN: 1. Altered mental status, etiology likely secondary to toxic metabolic encephalopathy with most likely culprit being profound hyponatremia. Continue with IV fluid hydration as per Dr. Lane. Neurologic evaluation is pending. Continue with soft restraints as needed and maintain n.p.o., given altered mental status. 2. Symptomatic hyponatremia, severe. Etiology likely multifactorial with differential including secondary to primary polydipsia, low p.o. solute intake, underlying hepatic dysfunction with massive ascites and concurrent thiazide diuretic use. Continue with gentle IV fluid hydration as per Dr. Lane with goal rate of correction of approximately 4-6 mEq per day so as to minimize risk of osmotic demyelination syndrome. 3. Ascites, new onset. Etiology likely secondary to hepatic dysfunction secondary to possible metastatic disease. The patient is noted to have a profoundly elevated CEA of 358. Dr. Francisco Matos of interventional radiology has been consulted for abdominal paracentesis for continued workup. Dr. George of GI has also been consulted for further evaluation and recommendations. 4. Pancreatic mass. As above, there is certainly concern for primary malignancy. Workup is still ongoing. However, once pathology is finalized, will need to have a discussion with family regarding goals of care. Will defer palliative care consult at present. 5. Dilated cardiomyopathy. The patient remains hemodynamically stable. Dr. Garza of cardiology has been consulted for further evaluation and recommendations. 6. Urinary retention. The patient is status post placement of Gu catheter with approximately 1.1 liters of urinary output. Dr. Burrell of urology has been consulted for further evaluation and recommendations. 7. Chronic hydrocephalus. Neuroimaging studies demonstrate stability of dilated ventricles as compared to prior study. Dr. Orozco of neurology has been consulted for further evaluation and recommendations. 8. Alzheimer dementia. 9. Coronary artery disease, status post stent placement. As above, Dr. Garza of cardiology has been consulted for further evaluation and recommendations. 10. Microcytic anemia. Labs demonstrate hemoglobin of 10, which is near the patient's baseline. As above, Dr. George of gastroenterology has been consulted for further evaluation. Continue to monitor CBC daily 11. Prophylaxis. Continue with Protonix for gastrointestinal prophylaxis and heparin for deep venous thrombosis prophylaxis. CODE STATUS: Full code. Tom Powell MD cc: [id number] TT: 09/08/2016 15:12:28 en MTDD
--- NOTE | 2016-09-08 17:50 | CON ---
DATE: 09/08/2016 REASON FOR CONSULTATION: Severe hyponatremia, hypokalemia, altered mental status. HISTORY OF PRESENTING ILLNESS: A 66-year-old male, previously unknown to me, is seen in the ICU. He is lying in bed. He is responsive, opens eyes only on request. Daughter is at bedside. History is mostly obtained from the daughter. She reports the patient was diagnosed with normal pressure hydro cephalus about 1 year ago. He was diagnosed with dementia, but for the last few months, he has been deteriorating. He has been having multiple falls. Has become increasingly apathetic, appetite has b een poor. Has had extensive outpatient workup, which had shown some disk disease, bilateral spondylo lysis at L5, moderate stenosis of L4, L5. Also, multilevel degeneration of the cervical spine. The patient was brought to the Emergency Room this time because of worsening mental status, recurrent falls at home, patient fell yesterday and was not able to get up. He was brought to the Emergency R oom. In the Emergency Room, he was found to be somewhat hypotensive, blood pressure was 115/81, hear t rate was 84. His blood work revealed his sodium to be 109, potassium was 3.7. The patient was adm itted to the ICU for symptomatic severe hyponatremia. He was given 1 liter of normal saline in the E mergency Room. This morning, his sodium is 114. PAST MEDICAL AND SURGICAL HISTORY: Alzheimer's, normal pressure hydrocephalus, percutaneous translum inal coronary angioplasty and stents, coronary artery disease, congestive heart failure, hypertension , cerebral ventricular dilatation, PTSD, ventral hernia repair, prostate cancer. FAMILY HISTORY: Noncontributory. SOCIAL HISTORY: Ex-smoker, social alcohol intake, no drug abuse, lives with family. ALLERGIES: No known drug allergies. MEDICATIONS AT HOME: Aspirin 81 mg daily, Lipitor 10, enalapril 5 b.i.d., hydrochlorothiazide 25, Ar icept 5, Julieta 150, naproxen 500 b.i.d. p.r.n. for pain. REVIEW OF SYSTEMS: The patient denies any pain at this time, he denies any shortness of breath, he d enies any chest tightness, he denies any urinary complaints. As per the daughter, patient was not ur inating for a few days before coming to the hospital. Gu catheter was placed in the Emergency [facility] . Currently, urine out is 700 mL for the last 24 hours. PHYSICAL EXAMINATION: GENERAL: Elderly male, lying in bed, in the ICU. VITAL SIGNS: Blood pressure 132/75, heart rate 75, respiratory rate 13, temperature 97.7. HEENT: Normocephalic, atraumatic. NECK: Supple, no JVD. LUNGS: Bilateral equal air entry, no rales. CARDIAC: S1, S2, regular rate and rhythm, no murmur, no rub. ABDOMEN: Obese, distended, soft, tympanitic, bowel sounds present. EXTREMITIES: No lower extremity edema. INTAKE AND OUTPUT: 2125/1160. LABORATORY DATA: WBC 6.9, hemoglobin 10.1, hematocrit 28, platelets 149. Sodium 114, potassium 3.5, chloride 80, CO2 25, BUN 13, creatinine 0.8, glucose 98. Uric acid 3.0, calcium 8.4. Phosphorus no t checked. Magnesium 2.0. AST 48, ALT 53, albumin 3.3. CEA 358. Urinalysis: Yellow, clear, pH 6. 5, specific gravity 1.015, protein negative, glucose negative, ketones trace, leukocyte esterase nega tive, urine osmolality 194, urine sodium 14. Blood cultures no growth so far. CT of the abdomen and pelvis with contrast: Large pancreatic mass, likely representing pancreatic carcinoma. Multiple lo w attenuation foci scattered throughout the liver consistent with metastatic disease; however, multif ocal hepatocellular carcinoma not excluded. Findings also suggest underlying cirrhosis with slightly nodular appearing liver surface, hyperdense material within the dependent portion of the gallbladder . A 66-year-old male with history of hypertension, coronary artery disease, percutaneous transluminal c oronary angioplasty and stent, Alzheimer's, chronic hydrocephalus, presented with multiple falls at h ome, altered mental status, found to have severe hyponatremia. He is now found to have what appears to be metastatic pancreatic cancer. The etiology of his hyponatremia at this point is likely combination of depletional hyponatremia seco ndary to poor p.o. intake and diuretic use combined with syndrome of inappropriate antidiuretic hormo ne secondary to metastatic pancreatic cancer. Low serum uric acid is consistent with syndrome of ivette ppropriate antidiuretic hormone. Urine sodium of 14 is more consistent with depletional hyponatremia , especially since patient was taking a diuretic at home. 1. Severe hyponatremia, symptomatic, altered mental status. 2. Hypokalemia. 3. Anemia, microcytic. 4. History of hypertension. 5. Coronary artery disease, history of percutaneous transluminal coronary angioplasty and stent. 6. Metastatic pancreatic cancer? 7. Alzheimer's with chronic hydrocephalus. PLAN: 1. Continue normal saline for another 24 hours. 2. Add potassium 10 mEq to each bag of normal saline. 3. Check stool occults x 3. 4. Check iron stores. 5. Monitor urine output closely. 6. Monitor serum sodium q. 12 hours. 7. Get old records, serum sodium levels from outpatient workup. 8. Get oncology consult. 9. Get GI consult. 10. Prognosis is guarded in light of metastatic cancer. 11. Case discussed with daughter at bedside, case discussed with ICU staff. More than 35 minutes spent in the care of this critically ill patient. Leila Lane MD cc: [id number] TT: 09/08/2016 17:50:36 Confirmation # [id number] Dictation # [id number] en
--- NOTE | 2016-09-08 18:10 | CON ---
DATE: 09/08/2016 REASON FOR CONSULTATION: History of coronary artery disease and abnormal EKG with evidence of left bundle branch block. HISTORY OF PRESENT ILLNESS: The patient is a 66-year-old male who has a history of Alzheimer dementia according to the patient's daughter who is at the bedside. History of coronary artery disease status post multiple coronary stenting. The most recent one was about 4 years ago. The patient has been experiencing hydrocephalus and recently underwent a lumbar tap without any significant improvement of his condition. The daughter stated that the neurologist has mentioned that alcohol could be related to his development of hydrocephalus. For the past few weeks, the patient's mental condition has deteriorated significantly. For the past 1 year, the patient does not know where he is at and the patient was brought to the Emergency Room because of worsening abdominal pain, distention and at times fecal incontinence. SOCIAL HISTORY: The patient is a former ETOH abuser. MEDICATIONS: Subcutaneous heparin 5000 units twice a day, intravenous potassium chloride infusion, 1 liter of normal saline plus 10 mEq of KCl at the rate of 125 mL per hour, Protonix 40 mg intravenously daily, Rocephin 2 gram intravenously daily, Zofran 4 mg intravenously q. 8 hours p.r.n. REVIEW OF SYSTEMS: No reported seizures. No reported hypotension. No reported ventricular arrhythmia. PHYSICAL EXAMINATION: GENERAL: The patient is an elderly male who is lethargic, does not appear to be in any respiratory distress. VITAL SIGNS: Blood pressure 143/76, heart rate 79, respiration 14, temperature 97.7. HEENT: Pale conjunctivae. CHEST: Diminished breath sounds over the bases. HEART: S1, S2 regular. EXTREMITIES: Trace leg edema. LABORATORY DATA: Hemoglobin and hematocrit 10.1 and 28.3, white count and platelet count are within normal limits. SMA-7: Sodium on admission was 109, today is 115; the rest of chemistry today, potassium 3.7, chloride 82, CO2 of 27 , glucose 93, BUN 12, creatinine 0.8. Troponins were 0.02 with 3 readings. ProBNP is 1,050. EKG sinus rhythm with PVCs, left bundle branch block. Chest x-ray reported poor inspiration with low lung volumes, crowded bronchovascular markings and mild bibasilar atelectasis, developing lower lobe infiltrate could be excluded with followup radiograph. Central pulmonary vasculature is also slightly increased, possibility of developing mild pulmonary edema/CHF to be considered. Head CT scan without contrast: No acute intracranial hemorrhage, moderate chronic white matter ischemic changes. Persistent dilatation of the lateral and third ventricles. Findings could be secondary to central volume loss; however, differential diagnosis would also include chronic compensated obstructive hydrocephalus. The normal pressure hydrocephalus to be considered only if the clinical triad of dementia, ataxia and incontinence are present. Overall, the appearance of the ventricles are unchanged. Abdomen and pelvis CT scan revealed large pancreatic mass, likely representing pancreatic carcinoma, multiple low attenuated for size scattered throughout the liver consistent with metastasis; however, multifocal hepatocellular carcinoma not excluded. The findings also suggest underlying cirrhosis with slightly nodular appearing liver surface contoured. Diuresis in the left upper quadrant of the abdomen and massive ascites. Hyperdense within the dependent portion of the gallbladder could represent layering hyperdense sludge or gravel. ASSESSMENT: 1. Abnormal EKG with evidence of left bundle branch block. The patient has a history of coronary artery disease with history of multiple coronary stenting. The most recent one was about 4 years ago according to the patient's daughter. 2. Profound hyponatremia. 3. Pancreatic mass was possibly liver metastasis. 4. Normal pressure hydrocephalus. 5. Portal hypertension and varices. RECOMMENDATIONS: Continue current normal saline infusion. Continue IV Rocephin 2 grams daily. Consider Aldactone therapy. Consider gastroenterology and oncology evaluation. Schedule the patient for an echocardiogram. The poor prognosis was discussed with the patient's daughter. Pradeep Trejo MD cc: [id number] TT: 09/08/2016 18:09:27 Confirmation # [id number] Dictation # [id number] yuni MTDJennifer
[2016-09-09 05:59] LABS: ADD MANUAL DIFF? NO
[2016-09-09 06:04] LABS: BASO # 0.02 K/mm3 (0.0-2.0); BASO % 0.3 % (0.0-3.0); EOS # 0.1 (0.0-0.7); EOS % 1.2 % (1.5-5.0); GRAN # 5.58 (1.4-6.5); GRAN % 85.9 % (50.0-68.0); HEMATOCRIT 28.8 % (42.0-52.0); LYMPH # 0.4 (1.2-3.4); LYMPH % 6.6 % (22.0-35.0); MEAN CELL VOLUME 80.7 fL (80.0-105.0); MEAN CORPUSCULAR HEMOGLOBIN 28.9 pg (25.0-35.0); MEAN CORPUSCULAR HGB CONC 35.8 g/dl (31.0-37.0); MEAN PLATELET VOLUME 9.4 fl (7.0-11.0); MONO # 0.4 (0.1-0.6); PLATELET COUNT 144 10^3/uL (120.0-450.0); RED CELL DISTRIBUTION WIDTH 12.9 % (11.5-14.5); WHITE BLOOD COUNT 6.5 10^3/ul (4.5-11.0)
[2016-09-09 06:35] LABS: BLOOD UREA NITROGEN 11 mg/dL (7-21); CALCIUM 8.4 mg/dL (8.4-10.5); CARBON DIOXIDE 23 mmol/L (21-33); CHLORIDE 87 mmol/L (98-107); GFR AFRICAN-AMERICAN > 60; GLUCOSE,RANDOM 89 mg/dL (70-110)
[2016-09-09 06:38] LABS: SODIUM 118 mmol/L (132-148)
[2016-09-09] MEDS ORDERED: Sodium Chloride 0.9% 250 ML IV STA (06:41)
--- NOTE | 2016-09-09 09:26 | PN ---
DATE: 09/09/2016 SUBJECTIVE: The patient seen and examined at bedside in the ICU. No acute events overnight. He remains afebrile and hemodynamically stable. The patient is maintained in the ICU for continued management of profound hyponatremia and altered mental status. The patient also has ongoing workup of a newly diagnosed pancreatic mass and possible liver metastases. Per discussion with the nursing staff, the patient had no acute events overnight. He continues to have intermittent periods of confusion, but overall remains calm. Otherwise, this morning, he states he feels okay and offers no specific complaints. OBJECTIVE: VITAL SIGNS: Temperature 97.8, pulse 83, blood pressure 154/86, respiratory rate 16, oxygen saturation 100% on 2 liters nasal cannula. GENERAL: Frail, elderly man appearing his stated age, lying in bed in no apparent distress. HEENT: Normocephalic, atraumatic PERRL, EOMI. No scleral icterus. Mild conjunctival pallor is noted. NECK: No JVD. LUNGS: Decreased breath sounds to the bases with bibasilar crackles. CARDIOVASCULAR: Regular rate and rhythm. Normal S1 and S2. ABDOMEN: Normoactive bowel sounds, soft, distended with ascites, no rigidity, no tympany. EXTREMITIES: Trace lower extremity edema bilaterally. NEUROLOGIC: Awake, alert and oriented to person, able to follow simple commands. LABORATORY DATA: WBC 6.5 with 86% neutrophils, hemoglobin 10, hematocrit 29, platelets 144. Sodium 118, potassium 4, chloride 87, bicarb 23, BUN 11, creatinine 0.8, glucose 89. Uric acid 3. ASSESSMENT: The patient is a 66-year-old man with multiple medical comorbidities who presented to Emergency Department for evaluation of a several day history of malaise, recurrent falls, apathy, decreased p.o. intake, altered mental status and abdominal distention and was admitted to the ICU for management of profound hyponatremia, new onset, massive ascites and with undergoing workup for newly diagnosed pancreatic mass with possible liver metastases. PLAN: 1. Altered mental status, etiology likely secondary to toxic metabolic encephalopathy with the most likely culprit being profound hyponatremia, neurological evaluation with Dr. Orozco is pending. Continue with soft restraints as needed, maintain n.p.o., given ongoing altered mental status. Continue with IV fluid hydration as per Dr. Lane. 2. Symptomatic hyponatremia, severe. Etiology is likely multifactorial with s most likely culprit being depletional hyponatremia in the setting of poor oral solu intake as well as secondary to SIADH in the setting of likely underlying malignancy which is corroborated by a low serum uric acid level. Input from Dr. Lane noted and appreciated. Continue with gentle IV fluid hydration with approximate goal rate of correction of 46 mEq per day so as to minimize risk of osmotic demyelination syndrome. 3. Ascites, new onset. Consider secondary to possible underlying metastatic disease. Of note, the patient had an elevated CEA of 358. Dr. George of GI has been consulted for further evaluation and recommendations. Dr. Francisco Matos's evaluation is pending for possible abdominal paracentesis. 4. Pancreatic mass. As above there is certainly concern for malignancy. Will consult Dr. Varner for further recommendations. 5. Dilated cardiomyopathy. The patient remains hemodynamically stable. Input from Dr. Trejo noted and appreciated. The patient will repeat transthoracic echocardiogram. 6. Urinary retention. The patient remains with Gu catheter in place and is noted to have satisfactory urinary output with approximately 1.2 liters in the last 24 hours. 7. Chronic normal pressure hydrocephalus. CT of the head from this admission demonstrates no change from prior. Dr. Orozco of neurology has been consulted. Will await his recommendations. 8. CAD status post PCI with stent placement. The patient remains chest pain free. As above, input from Dr. Trejo noted and appreciated. A repeat transthoracic echocardiogram has been ordered. 9. Microcytic anemia. Stool for occult blood has been ordered and pending. Iron studies have been ordered and are pending. We will continue to monitor CBC daily. As above, Dr. Varner has been consulted for further evaluation. 10. Alzheimer dementia. 11. Prophylaxis. Continue Protonix for gastrointestinal prophylaxis and heparin for DVT prophylaxis. CODE STATUS: Full code. Tom Powell MD cc: [id number] TT: 09/09/2016 09:25:55 Confirmation # [id number] Dictation # [id number] an MTDD
[2016-09-09] MEDS: cefTRIAXone 2 GM IN NS 2 GM/100 ML BAG IVPB SCH (09:41)
[2016-09-09 10:35] LABS: BLOOD UREA NITROGEN 10 mg/dL (7-21); CALCIUM 8.3 mg/dL (8.4-10.5); CARBON DIOXIDE 22 mmol/L (21-33); CHLORIDE 87 mmol/L (98-107); GFR AFRICAN-AMERICAN > 60; GLUCOSE,RANDOM 87 mg/dL (70-110); POTASSIUM 3.8 mmol/L (3.6-5.0)
[2016-09-09 10:58] LABS: SODIUM 118 mmol/L (132-148)
--- NOTE | 2016-09-09 12:35 | PN ---
DATE: 09/09/2016 SUBJECTIVE: The patient is seen in the ICU. He is lying in bed. He is much more awake and alert today. He is answering questions. Daughter is at bedside. He denies any abdominal pain, but reports some lower abdominal discomfort. Also, he complains of back pain. He denies any shortness of breath. He remains n.p.o. He denies any bowel movement today. He denies any urinary complaints. PHYSICAL EXAMINATION: GENERAL: Elderly male lying in bed in the ICU. VITAL SIGNS: Blood pressure 134/81, heart rate 83, respiratory rate 15-20, temperature 99. HEENT: Supple, no JVD. LUNGS: Bilateral equal air entry, no rales appreciated, equal expansion. CARDIAC: S1, S2, regular rate and rhythm, no murmur, no rub. ABDOMEN: Distended, soft, nontender. No guarding, no rigidity, bowel sounds present. EXTREMITIES: 2+ pitting edema of the lower extremities. INTAKE AND OUTPUT: 3260/1190. LABORATORY DATA: WBC 6.5, hemoglobin 10.3, hematocrit 28.8, platelets 144. Sodium 118, potassium 3.8, chloride 87, CO2 22, BUN 10, creatinine 0.7, glucose 87, calcium 8.3. Ferritin 82, iron saturation 15, iron 39. Cultures: No growth so far. ASSESSMENT AND PLAN: A 66-year-old male with multiple medical problems including coronary artery disease, congestive heart failure, chronic hydrocephalus, admitted with complaints of poor oral intake, malaise, recurrent falls, apathy, altered mental status. Found to have severe profound hyponatremia, new onset ascites, pancreatic mass with possible liver metastasis. 1. Severe symptomatic hyponatremia, a combination of depletional hyponatremia along with syndrome of inappropriate antidiuretic hormone. Sodium is improving with normal saline. This is consistent with depletional hyponatremia, but his uric acid levels are low which points towards syndrome of inappropriate antidiuretic hormone. 2. New onset ascites, likely malignant ascites. 3. Pancreatic mass. Suspicion is for pancreatic cancer. 4. Anemia, mild, ? gastrointestinal blood loss. Anemia is microcytic. Iron stores are low. This points towards gastrointestinal blood loss. A 5. Mild hypokalemia. Continue to monitor. 6. Case discussed with daughter at bedside. All questions answered. Case discussed with ICU staff. 1. At this time, continue normal saline with 10 mEq of KCl at 60 mL per hour. 2. Agree with plans for paracentesis today. 3. Agree with plans for biopsy 4. Stool occults x 3 5. Monitor h/h 6. Monitor K closely More than 35 minutes was spent in the care of this critically ill patient. D/w at length with daughter at bedside. D/w Dr Tanner Leila Lane MD cc: [id number] TT: 09/09/2016 12:34:51 Confirmation # [id number] Dictation # [id number] yuni BAIG
--- NOTE | 2016-09-09 12:50 | PN ---
DATE: 09/09/2016 The patient is awake, alert, able to carry on a conversation. There is no chest pain, no shortness o f breath. PHYSICAL EXAMINATION: VITAL SIGNS: The blood pressure is 134/81. The heart rate is in the 80s. NECK: Negative JVD. LUNGS: Without rales. HEART: Reveals S1, S2. EXTREMITIES: Without edema. LABORATORIES: Sodium is 118, hemoglobin is 10.3. IMPRESSION: 1. Severe hyponatremia. 2. Questionable syndrome of inappropriate antidiuretic hormone hypersecretion. 3. Stable angina. 4. Coronary artery disease. 5. Dementia. 6. Questionable pancreatic cancer. PLAN: Given these findings, the patient's sodium is slowly improving. His mental status is improvin g. I had a long discussion with the patient's daughter and son-in-law about the patient's prognosis. Francisco Garza MD cc: [id number] TT: 09/09/2016 12:50:17 Confirmation # [id number] Dictation # [id number] sn
--- NOTE | 2016-09-09 13:00 | CON ---
DATE: 09/09/2016 CONSULTATION GASTROENTEROLOGY REQUESTING PHYSICIAN: Tom Powell MD. REASON FOR CONSULTATION: I have been asked to see this 66-year-old male with known history of evangelina ia, hydrocephalus, coronary artery disease, dilated cardiomyopathy, alcoholism who comes to the [facility] with 7-10 days of worsening mental status, generalized weakness, recurrent falls, and diminished p.o. intake. I saw the patient in the office last week for weight loss, abdominal distention, and co nstipation. Given the patient's poor overall health, the patient was treated conservatively with sto ol softeners. He is brought to the hospital by the family with the above symptoms, as well as decrea sed p.o. intake and generalized weakness. In the Emergency Room, the patient was found to be severely hyponatremic with a sodium of 1.1. He is also noted to have an elevated CEA of 358. The patient also was found on CAT scan to have a large mass in the body and head of the pancreas, as well as multiple hypodense areas in the liver suggestive of liver metastasis. PAST MEDICAL HISTORY: As above. Again, the patient has a history of dementia, chronic hydrocephalus , coronary artery disease status post stent placement, dilated cardiomyopathy, alcoholism, anxiety di sorder, and PTSD. PAST SURGICAL HISTORY: Notable for ventral hernia repair. SOCIAL HISTORY: The patient used to smoke between 1-2 packs of cigarettes per day for over 35 years. He used to consume alcohol on a daily basis. 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 FAMILY HISTORY: Noncontributory. REVIEW OF SYSTEMS: A 14-point review of systems is unobtainable due to the patient's dementia. PHYSICAL EXAMINATION: GENERAL: Thin male, appearing chronically ill, lying in bed, awake, pleasantly confused. VITAL SIGNS: Reveal that he is afebrile, temperature of 99, blood pressure 155/94, heart rate 90. HEENT: Reveal bitemporal wasting. Conjunctivae are pale. NECK: Supple. CHEST: Reveals distant breath sounds. HEART: Reveals a regular rate and rhythm. ABDOMEN: Softly distended, nontender, no mass. EXTREMITIES: Show no edema. LABORATORY DATA: Reveal white blood cell count of 6.5, hemoglobin 10.3. Chemistries reveal sodium o f 118, potassium 3.8, chloride 87. CEA is 358. CA 19-9 is over 1000. White blood cell count is 6.5 , hemoglobin 10.3. IMPRESSION: A 66-year-old male with dementia, hydrocephalus, cirrhotic-appearing liver on CAT scan w ith ascites, as well as a large mass in the body of the pancreas with apparent liver mets with elevat ed CA 19-9 levels and elevated CEA level. The patient's overall prognosis is poor with what appears to be a pancreatic cancer with liver metastasis. I have discussed the diagnosis and prognosis at [facility] with the patient's daughter and son-in-law who are at the bedside. RECOMMENDATIONS: 1. Consider CT-guided biopsy of either the liver mass or the mass of the body in the pancreas for ti ssue diagnosis. 2. The patient probably is not a candidate for palliative adjuvant chemotherapy given his severe dem entia and other comorbidities. Again, his long-term prognosis is extremely poor. Daniel George MD cc: [id number] TT: 09/09/2016 12:31:23 Confirmation # [id number] Dictation # [id number] jamari
--- NOTE | 2016-09-09 14:32 | CP.CCUPN ---
<KarenLona - Last Filed: 09/09/16 14:33> CCU Subjective - Physician Review Events Since Last Encounter (Free Text): 09/09/16 14:28 Got 125cc NS overnight CCU Objective - Vital Signs / Intake & Output Vital Signs (Last 4 hours): Vital Signs Pulse Resp BP Pulse Ox 09/09/16 14:10 84 97 09/09/16 14:00 86 125/68 97 09/09/16 13:50 88 16 93 L 09/09/16 13:40 86 16 96 09/09/16 13:30 86 19 97 09/09/16 13:20 90 23 97 09/09/16 13:10 90 15 96 09/09/16 13:03 95 H 19 09/09/16 13:02 95 H 30 H 143/83 09/09/16 13:00 104 H 31 H 09/09/16 12:50 103 H 19 91 L 09/09/16 12:40 83 15 98 09/09/16 12:30 85 21 98 09/09/16 12:20 90 18 97 09/09/16 12:10 90 16 97 09/09/16 12:00 87 14 148/68 97 09/09/16 11:50 88 16 98 09/09/16 11:40 86 15 97 09/09/16 11:30 88 16 96 09/09/16 11:20 86 16 97 09/09/16 11:10 86 17 97 09/09/16 11:00 87 15 136/68 97 09/09/16 10:50 89 17 96 09/09/16 10:40 88 15 96 09/09/16 10:30 85 19 92 L Intake and Output (Last 8hrs): Intake & Output 09/08/16 09/09/16 09/09/16 22:59 06:59 14:59 Intake Total 1610 1650 Output Total 540 650 Balance 1070 1000 Weight 209 lb 209 lb Intake: IV 1610 1650 Right Antecubital 1610 Right Wrist 1650 Oral 0 0 Output: Urine 540 650 Urethral (Gu) 540 650 Other: Voiding Method Indwelling Catheter Indwelling Catheter # Bowel Movements 0 0 - Physical Exam Head: Positive for: Atraumatic, Normocephalic Pupils: Positive for: PERRL (4mm equally reactive) Extroacular Muscles: Positive for: EOMI Conjunctiva: Positive for: Normal Mouth: Positive for: Moist Mucous Membranes Neck: Positive for: Normal Range of Motion Respiratory/Chest: Positive for: Clear to Auscultation, Good Air Exchange. Negative for: Respiratory Distress, Accessory Muscle Use Cardiovascular: Positive for: Regular Rate and Rhythm, Normal S1, S2. Negative for: Murmurs Abdomen: Positive for: Distention (Mildly Distended), Normal Bowel Sounds. Negative for: Tenderness, Peritoneal Signs Lower Extremity: Positive for: Normal Inspection. Negative for: Edema Neurological: Positive for: GCS=15, CN II-XII Intact, Speech Normal Skin: Positive for: Warm, Dry, Normal Color. Negative for: Rashes Psychiatric: Positive for: Alert, Oriented x 3, Normal Insight, Normal Concentration - Medications Active Medications: Active Medications Generic Name Dose Route Start Last Admin Trade Name Freq PRN Reason Stop Dose Admin Acetaminophen 650 mg 09/07/16 16:46 09/09/16 14:10 Tylenol 325mg Tab PO 650 mg Q6H PRN Administration Fever >100.4 F Heparin Sodium (Porcine) 5,000 units 09/07/16 22:00 09/09/16 09:47 Heparin SC 5,000 units Q12 TEODORO Administration Protocol Ceftriaxone Sodium 2 gm in 100 mls @ 100 mls/hr 09/07/16 16:45 09/09/16 09:41 Rocephin 2 Gm Ivpb IVPB 100 mls/hr DAILY TEODORO Administration Protocol Potassium Chloride 10 meq/ 1,005 mls @ 125 mls/hr 09/08/16 10:17 09/09/16 04: 00 Sodium Chloride IV 125 mls/hr .Q8H3M TEODORO Administration Morphine Sulfate 2 mg 09/09/16 14:26 Morphine IVP Q4H PRN Pain, severe (8-10) Ondansetron HCl 4 mg 09/07/16 16:46 Zofran Inj IVP Q8H PRN Nausea/Vomiting Pantoprazole Sodium 40 mg 09/08/16 10:00 09/09/16 09:49 Protonix Inj IVP 40 mg DAILY TEODORO Administration - Patient Studies Lab Studies: Microbiology Studies 09/08/16 08:41 Urine Culture - Final Urine No Growth (<1,000 CFU/ML) 09/07/16 13:00 MRSA Culture (Admit) - Final Naris MRSA NOT DETECTED Lab Studies 09/09/16 09/09/16 09/09/16 Range/Units 10:00 05:30 05:30 WBC 6.5 (4.5-11.0) 10^3/ul RBC 3.57 (3.5-6.1) 10^6/uL Hgb 10.3 L (14.0-18.0) gm/dL Hct 28.8 L (42.0-52.0) % MCV 80.7 (80.0-105.0) fL MCH 28.9 (25.0-35.0) pg MCHC 35.8 (31.0-37.0) g/dl RDW 12.9 (11.5-14.5) % Plt Count 144 (120.0-450.0) 10^3/uL MPV 9.4 (7.0-11.0) fl Gran % 85.9 H (50.0-68.0) % Lymph % (Auto) 6.6 L (22.0-35.0) % [place] % (Auto) 6.0 (1.0-6.0) % Eos % (Auto) 1.2 L (1.5-5.0) % Baso % (Auto) 0.3 (0.0-3.0) % Gran # 5.58 (1.4-6.5) Lymph # 0.4 L (1.2-3.4) [place] # 0.4 (0.1-0.6) Eos # 0.1 (0.0-0.7) Baso # 0.02 (0.0-2.0) K/mm3 Sodium 118 L* 118 L* (132-148) mmol/L Potassium 3.8 4.0 (3.6-5.0) mmol/L Chloride 87 L 87 L (98-107) mmol/L Carbon Dioxide 22 23 (21-33) mmol/L Anion Gap 13 12 (10-20) BUN 10 11 (7-21) mg/dL Creatinine 0.7 0.8 (0.5-1.4) mg/dL Est GFR ( Amer) > 60 > 60 Est GFR (Non-Af Amer) > 60 > 60 Random Glucose 87 89 (70-110) mg/dL Calcium 8.3 L 8.4 (8.4-10.5) mg/dL Ferritin ng/mL 09/08/16 Range/Units 12:40 WBC (4.5-11.0) 10^3/ul RBC (3.5-6.1) 10^6/uL Hgb (14.0-18.0) gm/dL Hct (42.0-52.0) % MCV (80.0-105.0) fL MCH (25.0-35.0) pg MCHC (31.0-37.0) g/dl RDW (11.5-14.5) % Plt Count (120.0-450.0) 10^3/uL MPV (7.0-11.0) fl Gran % (50.0-68.0) % Lymph % (Auto) (22.0-35.0) % [place] % (Auto) (1.0-6.0) % Eos % (Auto) (1.5-5.0) % Baso % (Auto) (0.0-3.0) % Gran # (1.4-6.5) Lymph # (1.2-3.4) [place] # (0.1-0.6) Eos # (0.0-0.7) Baso # (0.0-2.0) K/mm3 Sodium (132-148) mmol/L Potassium (3.6-5.0) mmol/L Chloride (98-107) mmol/L Carbon Dioxide (21-33) mmol/L Anion Gap (10-20) BUN (7-21) mg/dL Creatinine (0.5-1.4) mg/dL Est GFR ( Amer) Est GFR (Non-Af Amer) Random Glucose (70-110) mg/dL Calcium (8.4-10.5) mg/dL Ferritin 82.2 ng/mL Laboratory Results - last 24 hr 09/08/16 09/09/16 09/09/16 12:40 05:30 05:30 WBC 6.5 RBC 3.57 Hgb 10.3 L Hct 28.8 L MCV 80.7 MCH 28.9 MCHC 35.8 RDW 12.9 Plt Count 144 MPV 9.4 Gran % 85.9 H Lymph % (Auto) 6.6 L [place] % (Auto) 6.0 Eos % (Auto) 1.2 L Baso % (Auto) 0.3 Gran # 5.58 Lymph # 0.4 L [place] # 0.4 Eos # 0.1 Baso # 0.02 Sodium 118 L* Potassium 4.0 Chloride 87 L Carbon Dioxide 23 Anion Gap 12 BUN 11 Creatinine 0.8 Est GFR ( Amer) > 60 Est GFR (Non-Af Amer) > 60 Random Glucose 89 Calcium 8.4 Ferritin 82.2 09/09/16 10:00 WBC RBC Hgb Hct MCV MCH MCHC RDW Plt Count MPV Gran % Lymph % (Auto) [place] % (Auto) Eos % (Auto) Baso % (Auto) Gran # Lymph # [place] # Eos # Baso # Sodium 118 L* Potassium 3.8 Chloride 87 L Carbon Dioxide 22 Anion Gap 13 BUN 10 Creatinine 0.7 Est GFR ( Amer) > 60 Est GFR (Non-Af Amer) > 60 Random Glucose 87 Calcium 8.3 L Ferritin Fingerstick Blood Sugar Results: 163 Assessment/Plan - Assessment and Plan (Free Text) Plan: 66M, with chronic hydrocephalus & CHF (diastolic and systolic), admitted in ICU for hyponatermia with AMS, abdominal pain, urinary retention, and fecal retention/constipation in the setting of massive ascites and new liver and pancreatic masses found on CT. Hyponatremia is chronic. Neural - Delirium - imrpoves - NPO for paracentesis - aspiration precaution Cardio - Hx CAD - BP 110-150s. Pulm - Maintain SaO2 > 95 GI - Ceftriaxone 2g daily SBP prophylasix - GI consult for poss fecal disimpaction, liver/pancreatic masses, ascites - Paracentesis at 5pm Ordered: Ascite perotoneal Cell count and differential, albumin, total protein, CEA, amylase, lipase, LDH, tg, glucose, Culture, gram stain, cytology - CEA and CA19-9 elevated Renal - urinary retention - Gu on - strict i/o - Received IV contrast - Not oliguric - Pending PSA Endo - Chronic Hyponatremia - do not over-correct more than 12 meq/day. Goal is correct from Na 109 to Na 115 - Per nephro: NS@ 125 with 10 K - Na 119 - Consider Uric acid for SIADH --> then fluid restrict - Etiology Uosmo > 100 Antonietta < 14 Etiology: Hypervolemic more likely, from CHF vs Cirrhosis. Pending BNP (6pm) , CXR; MELD = 5 (1-yr survivial 100%) - maintain euglycemic Heme - microcytic anemia - Pending occult blood stool Infectious - Ceftriaxone 2g daily SBP prophylasix Prophylasix - protonix, heparin q12 Consult - Urol = Mathews - Nephro = Gigi - Cardio = Garza - GI = George - IR = Carlo s/r/d/w Dr. Cynthia Tanner - Date & Time Date: 09/09/16 Time: 14:29 <Flores CORONEL,Richard H - Last Filed: 09/09/16 16:10> CCU Objective - Vital Signs / Intake & Output Vital Signs (Last 4 hours): Vital Signs Pulse Resp BP Pulse Ox 09/09/16 14:10 84 97 09/09/16 14:00 86 125/68 97 09/09/16 13:50 88 16 93 L 09/09/16 13:40 86 16 96 09/09/16 13:30 86 19 97 09/09/16 13:20 90 23 97 09/09/16 13:10 90 15 96 09/09/16 13:03 95 H 19 09/09/16 13:02 95 H 30 H 143/83 09/09/16 13:00 104 H 31 H 09/09/16 12:50 103 H 19 91 L 09/09/16 12:40 83 15 98 09/09/16 12:30 85 21 98 09/09/16 12:20 90 18 97 09/09/16 12:10 90 16 97 Intake and Output (Last 8hrs): Intake & Output 09/09/16 09/09/16 09/09/16 06:59 14:59 22:59 Intake Total 1650 Output Total 650 Balance 1000 Weight 209 lb Intake: IV 1650 Right Wrist 1650 Oral 0 Output: Urine 650 Urethral (Gu) 650 Other: Voiding Method Indwelling Catheter Indwelling Catheter # Bowel Movements 0 - Medications Active Medications: Active Medications Generic Name Dose Route Start Last Admin Trade Name Freq PRN Reason Stop Dose Admin Acetaminophen 650 mg 09/07/16 16:46 09/09/16 14:10 Tylenol 325mg Tab PO 650 mg Q6H PRN Administration Fever >100.4 F Heparin Sodium (Porcine) 5,000 units 09/07/16 22:00 09/09/16 09:47 Heparin SC 5,000 units Q12 TEODORO Administration Protocol Ceftriaxone Sodium 2 gm in 100 mls @ 100 mls/hr 09/07/16 16:45 09/09/16 09:41 Rocephin 2 Gm Ivpb IVPB 100 mls/hr DAILY TEODORO Administration Protocol Potassium Chloride 10 meq/ 1,005 mls @ 125 mls/hr 09/08/16 10:17 09/09/16 14: 27 Sodium Chloride IV 125 mls/hr .Q8H3M TEODORO Administration Morphine Sulfate 2 mg 09/09/16 14:26 09/09/16 15:19 Morphine IVP 2 mg Q4H PRN Administration Pain, severe (8-10) Ondansetron HCl 4 mg 09/07/16 16:46 Zofran Inj IVP Q8H PRN Nausea/Vomiting Pantoprazole Sodium 40 mg 09/08/16 10:00 09/09/16 09:49 Protonix Inj IVP 40 mg DAILY TEODORO Administration - Patient Studies Lab Studies: Microbiology Studies 09/08/16 08:41 Urine Culture - Final Urine No Growth (<1,000 CFU/ML) 09/07/16 13:00 MRSA Culture (Admit) - Final Naris MRSA NOT DETECTED Lab Studies 09/09/16 09/09/16 09/09/16 Range/Units 14:13 10:00 05:30 WBC (4.5-11.0) 10^3/ul RBC (3.5-6.1) 10^6/uL Hgb (14.0-18.0) gm/dL Hct (42.0-52.0) % MCV (80.0-105.0) fL MCH (25.0-35.0) pg MCHC (31.0-37.0) g/dl RDW (11.5-14.5) % Plt Count (120.0-450.0) 10^3/uL MPV (7.0-11.0) fl Gran % (50.0-68.0) % Lymph % (Auto) (22.0-35.0) % [place] % (Auto) (1.0-6.0) % Eos % (Auto) (1.5-5.0) % Baso % (Auto) (0.0-3.0) % Gran # (1.4-6.5) Lymph # (1.2-3.4) [place] # (0.1-0.6) Eos # (0.0-0.7) Baso # (0.0-2.0) K/mm3 Sodium 119 L* 118 L* 118 L* (132-148) mmol/L Potassium 4.1 3.8 4.0 (3.6-5.0) mmol/L Chloride 88 L 87 L 87 L (98-107) mmol/L Carbon Dioxide 21 22 23 (21-33) mmol/L Anion Gap 14 13 12 (10-20) BUN 10 10 11 (7-21) mg/dL Creatinine 0.7 0.7 0.8 (0.5-1.4) mg/dL Est GFR ( Amer) > 60 > 60 > 60 Est GFR (Non-Af Amer) > 60 > 60 > 60 Random Glucose 90 87 89 (70-110) mg/dL Calcium 8.6 8.3 L 8.4 (8.4-10.5) mg/dL Ferritin ng/mL 09/09/16 09/08/16 Range/Units 05:30 12:40 WBC 6.5 (4.5-11.0) 10^3/ul RBC 3.57 (3.5-6.1) 10^6/uL Hgb 10.3 L (14.0-18.0) gm/dL Hct 28.8 L (42.0-52.0) % MCV 80.7 (80.0-105.0) fL MCH 28.9 (25.0-35.0) pg MCHC 35.8 (31.0-37.0) g/dl RDW 12.9 (11.5-14.5) % Plt Count 144 (120.0-450.0) 10^3/uL MPV 9.4 (7.0-11.0) fl Gran % 85.9 H (50.0-68.0) % Lymph % (Auto) 6.6 L (22.0-35.0) % [place] % (Auto) 6.0 (1.0-6.0) % Eos % (Auto) 1.2 L (1.5-5.0) % Baso % (Auto) 0.3 (0.0-3.0) % Gran # 5.58 (1.4-6.5) Lymph # 0.4 L (1.2-3.4) [place] # 0.4 (0.1-0.6) Eos # 0.1 (0.0-0.7) Baso # 0.02 (0.0-2.0) K/mm3 Sodium (132-148) mmol/L Potassium (3.6-5.0) mmol/L Chloride (98-107) mmol/L Carbon Dioxide (21-33) mmol/L Anion Gap (10-20) BUN (7-21) mg/dL Creatinine (0.5-1.4) mg/dL Est GFR ( Amer) Est GFR (Non-Af Amer) Random Glucose (70-110) mg/dL Calcium (8.4-10.5) mg/dL Ferritin 82.2 ng/mL Laboratory Results - last 24 hr 09/08/16 09/09/16 09/09/16 12:40 05:30 05:30 WBC 6.5 RBC 3.57 Hgb 10.3 L Hct 28.8 L MCV 80.7 MCH 28.9 MCHC 35.8 RDW 12.9 Plt Count 144 MPV 9.4 Gran % 85.9 H Lymph % (Auto) 6.6 L [place] % (Auto) 6.0 Eos % (Auto) 1.2 L Baso % (Auto) 0.3 Gran # 5.58 Lymph # 0.4 L [place] # 0.4 Eos # 0.1 Baso # 0.02 Sodium 118 L* Potassium 4.0 Chloride 87 L Carbon Dioxide 23 Anion Gap 12 BUN 11 Creatinine 0.8 Est GFR ( Amer) > 60 Est GFR (Non-Af Amer) > 60 Random Glucose 89 Calcium 8.4 Ferritin 82.2 09/09/16 09/09/16 10:00 14:13 WBC RBC Hgb Hct MCV MCH MCHC RDW Plt Count MPV Gran % Lymph % (Auto) [place] % (Auto) Eos % (Auto) Baso % (Auto) Gran # Lymph # [place] # Eos # Baso # Sodium 118 L* 119 L* Potassium 3.8 4.1 Chloride 87 L 88 L Carbon Dioxide 22 21 Anion Gap 13 14 BUN 10 10 Creatinine 0.7 0.7 Est GFR ( Amer) > 60 > 60 Est GFR (Non-Af Amer) > 60 > 60 Random Glucose 87 90 Calcium 8.3 L 8.6 Ferritin Attending/Attestation - Attestation I have personally seen and examined this patient.: Yes I have fully participated in the care of the patient.: Yes I have reviewed all pertinent clinical information: Yes Notes (Text): 09/09/16 16:04 66 y/o M w/ NPH w/ hyponatremia and new found pancreatic mass and Liver mets. NA correction appropriately in 24hrs. On Normal Saline 125 ml/hr Was being treated for hypovolemic hyponatremia . Urine electrolytes were not fully sent. may have an element of SIADH in light of these new findings such as Abdominal mass , urinary retention . Na correction was be stagnant. Will defer to nephrology to monitor correction and watch urine electrolytes BMP q 4hrs needs to have ONC an dGI to follow the patient for the new mass. paracentesis to be done to check for pathology and diagnosis . dvt p SCD cc time 65 min
[2016-09-09 14:36] LABS: BLOOD UREA NITROGEN 10 mg/dL (7-21); CALCIUM 8.6 mg/dL (8.4-10.5); CARBON DIOXIDE 21 mmol/L (21-33); CHLORIDE 88 mmol/L (98-107); GFR AFRICAN-AMERICAN > 60; GLUCOSE,RANDOM 90 mg/dL (70-110); POTASSIUM 4.1 mmol/L (3.6-5.0)
[2016-09-09 14:42] LABS: SODIUM 119 mmol/L (132-148)
[2016-09-09] MEDS: Morphine 2 mg/ml ISec IVP PRN (15:19)
--- NOTE | 2016-09-09 17:28 | CON ---
DATE: 09/09/2016 This is the patient's hospital visit in the intensive care unit. For Dr. Varner. CHIEF COMPLAINT: Mental status change. HISTORY OF PRESENT ILLNESS: The patient is a 66-year-old male with known chronic hydrocephalus appiah es, admitted via the Emergency Room to [facility] for a 2-week history of worsening alter ed mental status with recurrent falls. With this, the patient was known to have significant electrol yte abnormality with his admission labs showing a sodium of 109, chloride of 75. He also reports dis comfort to the mid upper abdomen with radiation to his mid back for approximately 1-2 weeks' time, wi th a complaint of approximately 7/10 pain to that area; persistent unremitting-type pain. Further testing for this patient showed that he has a pancreatic mass, to be further delineated furth er in this dictation. With this, he is examined sitting up in a chair in the intensive care unit wit h his daughter and at the bedside. With his discomfort not being relieved with Tylenol, we will adjust his pain medication. ALLERGIES: No known allergies. MEDICATIONS: Include aspirin, Lipitor, enalapril, hydrochlorothiazide, Aricept, Naprosyn. PAST MEDICAL HISTORY: For this patient is ASCVD, status post percutaneous intervention with stent pl acement, dilated cardiomyopathy, hydrocephalus, questionable dementia, as the patient appears to answ er all questions appropriately this visit, PTSD, anxiety, ventral hernia repair. FAMILY HISTORY AND SOCIAL HISTORY: Former [id number] history of smoking, now quit for approximatel y 20 years, with occasional ETOH use reported. REVIEW OF SYSTEMS: Essentially negative to questions except as above. PHYSICAL EXAMINATION: VITAL SIGNS: Temperature 99, pulse 84, respirations 16, blood pressure 125/68, pulse ox 97%. HEENT: Unremarkable. NECK: Supple. HEART: Regular rate. LUNGS: Decreased breath sounds. ABDOMEN: Increased tenderness to gentle palpation to the right mid upper quadrant with radiation to the back. Minimally distended. EXTREMITIES: Faint +1 edema bilaterally lower extremities. NEUROLOGIC: Awake, alert, and oriented x 3. SKIN: Otherwise, warm, dry, and clear. LABORATORY DATA: The patient's labs were done. As previously mentioned on admission, sodium of 109, with a repeat which was 2 days prior. It is presently 119, with a chloride of 88 today, iron satura tion of 15, with a CA 19-9 of greater than 1000, CEA of 358. His B-natriuretic peptide was 1050. IN R 1.05. Urinalysis showed trace of ketones, urobilinogen 1.0. The patient did have a CT scan of his head done 2 days prior. It was read as no acute intracranial h emorrhage, moderate chronic white matter ischemic changes, persistent dilatation of the lateral and 3 rd ventricles. Findings could be secondary to central volume loss. However, compensated hydrocephal us would be included. CT scan of the abdomen and pelvis was done on 09/07. It was read as large hartman creatic masses likely representing pancreatic carcinoma, multiple low attenuation foci scattered thro ughout the liver, consistent with metastases. However, multifocal hepatocellular carcinoma not exclu ded. Findings also suggest underlying cirrhosis with slightly nodule appearance liver surface contou rs and varices in left upper quadrant, with massive ascites. Hyperdense material within the dependen t portion of the gallbladder could represent hyperdense sludge. DJD lower thoracic and lumbar spines , grade I spondylolisthesis L5-S1. DIAGNOSTIC DATA: The patient had a chest x-ray done 09/07. It was read as poor inspiration. Develo ping low infiltrates could be excluded with followup radiographs. Possibility of developing mild chr onic pulmonary edema, CHF to be considered? MICROBIOLOGY: Blood cultures were done. Negative at 48 hours. Urine culture, no growth. MRSA, non e detected. ASSESSMENT: For this patient is that of severe hyponatremia, electrolyte imbalance, syndrome of inap propriate antidiuretic hormone?, pancreatic mass, liver mass, dilated cardiomyopathy, history of hydr ocephalus altered mental status secondary to above, now improved, arteriosclerotic cardiovascular dis ease. PLAN: For this patient is to continue present medical regimen as per his primary doctor, Dr. Raghav lamar. We will monitor clinically and with labs with a paracentesis done earlier today, with his medica tions to be restarted as per consultants' recommendations. For his severe pain, will give morphine 2 mg IV q. 4 hours p.r.n., with increasing doses as indicated for his pancreatic mass pain. Will disc ontinue Naprosyn and NSAIDs, and in turn with heparin subcutaneous for prophylaxis. Prognosis for this patient is guarded. We will monitor clinically and with labs. Silviano Mirella CORONEL cc: [id number] TT: 09/09/2016 17:27:36 Confirmation # [id number] Dictation # [id number] dn
--- NOTE | 2016-09-09 20:04 | CON ---
DATE: 09/09/2016 CHIEF COMPLAINT: Abdominal pain, falling at home and failure to thrive. HISTORY OF PRESENT ILLNESS: This is a 66-year-old male who was seen in the intensive care unit at [facility]. The patient's family is present. They are providing much of the history. Ove r the past few weeks the patient has been having increasing lethargy, abdominal distention and fallin g at home. He has not been eating or drinking well. He was also noted to have some difficulty urina ting. The patient was brought to the Emergency Room with altered mentation. He does have a history of some Alzheimer's dementia and chronic hydrocephalus. He was admitted for evaluation and treatment . The patient's daughter reports over the past few weeks he has been having some urinary frequency. He has been going to the bathroom more often and having difficulty passing his urine. He had no com plaints of dysuria and had no gross hematuria. During his workup, he was found to have a distended b ladder, a Gu catheter was placed and over 1 liter of urine was drained. The Gu has remained in place. It was placed yesterday. He is not complaining of any pain from the Gu catheter. On his workup, he was found to have a large pancreatic mass along with ascites and a consultation was th en requested regarding urinary retention. The patient's family reports he has no prior history of pr ostate cancer or other prostate problems. PAST MEDICAL HISTORY: Significant for coronary artery disease, Alzheimer's dementia, cardiomyopathy, chronic hydrocephalus, new pancreatic mass and ascites, PTSD and anxiety. MEDICATIONS: At home included aspirin, Lipitor, enalapril, hydrochlorothiazide, Aricept, and Naprosy n. FAMILY HISTORY: Significant for prostate cancer in his father, but he has no history. SOCIAL HISTORY: The patient lives at home. Positive for smoking and EtOH use in the past. REVIEW OF SYSTEMS: Done from the family. The patient is awake and alert and answering questions, bu t is a poor historian. A 12-point review of systems was obtained. Positives for weakness and fallin g at home, abdominal distention, difficulty voiding, difficulty ambulating, memory loss, delirium. N egative for fever, chills or chest pain. Other systems were negative. PHYSICAL EXAMINATION: GENERAL: The patient is awake and alert. He is responsive, but not answering questions capably. He is in no acute distress. VITAL SIGNS: He is afebrile, pulse of 88, respirations 16, blood pressure 148/68. NECK: Supple. There is no noted adenopathy. CHEST: Reveals normal inspiratory effort. CARDIAC: Showed positive S1, S2. There is some mild to moderate peripheral edema. ABDOMEN: Soft, nontender. There is some distention and acidic wave. There was no costovertebral an gle tenderness. There was no noted organomegaly. GENITOURINARY: The phallus is normal. There is a Gu catheter in place, which is draining clear-c olored urine. Scrotum is normal. Testes are bilaterally descended, nontender, no masses. Epididymi are normal. EXTREMITIES: There is no cyanosis. There is some trace peripheral edema. LABORATORY DATA: WBC count is normal. Hemoglobin 10.1. Creatinine normal with a GFR greater than 6 0. Urinalysis showed trace ketones, positive urobilinogen, negative nitrites, negative for blood, ne gative for leukocytes. RADIOLOGIC EXAMINATION: The patient had a CT scan of the abdomen and pelvis, which showed kidneys sarmiento d symmetric nephrograms. There was no nephrolithiasis. There was mild dilatation of the left renal collecting system. In the pancreas there was a large ill-defined mass seen in the mid body and pancr eatic head region, which most likely represents pancreatic carcinoma. The liver had some small lesio ns which were thought to be possible metastatic disease; also underlying cirrhosis. IMPRESSION AND PLAN: This is a 66-year-old male seen in the ICU at [facility]. Urologic ally, the patient has urinary retention and there was over a liter in his bladder when the Gu cath eter was inserted. The plan for now will be to maintain the Gu catheter in place as patient has o ther more pressing medical issues at this time. It is possible that patient has metastatic pancreati c carcinoma. He is scheduled to have a peritoneal tap later today. The patient also has neurologic issues with hid chronic hydrocephalus which needs to be addressed. I discussed the plan to maintain the indwelling Gu catheter until his other medical issues have been addressed with his family. Th ey understand and they agree to this plan. If patient is medically doing well, we can consider start ing him on Flomax and giving him a voiding trial, but I would not do that for approximately 2 weeks t o let his bladder decompress. If patient does have metastatic pancreatic carcinoma, the plan would b e to leave the catheter indwelling at this time. Alternatively, we could plan if the patient does re cover medically of performing a surgical procedure, but that does not appear to be desirable at this time until the results of his other tests are known and most likely given his medical condition the p atient should be maintained with an indwelling Gu catheter, which could be changed monthly; rudi layne, we will need to discuss this plan with the patient's medical doctor and oncology once his diagnosi s is known. Thank you for allowing us to participate in the care of this patient. We will follow him with you. Steven Mathews MD cc: [id number] TT: 09/09/2016 20:03:47 Confirmation # [id number] Dictation # [id number] yuni
--- NOTE | 2016-09-09 21:47 | CON ---
DATE: 09/09/2016 HISTORY OF PRESENT ILLNESS: This is a 66-year-old male with past medical history of coronary artery disease status post stent and cardiomyopathy, dementia and chronic hydrocephalus came to the [facility] with altered mental status and called to evaluate the patient. PAST MEDICAL HISTORY: Coronary artery disease, cardiomyopathy; dementia, Alzheimer's type. PAST SURGICAL HISTORY: Status post hernia repair. ALLERGIES: No known drug allergies. MEDICATIONS: Aspirin, enalapril, hydrochlorothiazide, Aricept and naproxen. SOCIAL HISTORY: The patient is an ex-smoker, does not drink. REVIEW OF SYSTEMS: A 10-point review of system was negative except as noted above. PHYSICAL EXAMINATION: VITAL SIGNS: Blood pressure 124/76. HEENT: Normocephalic, atraumatic. NECK: Supple. NEUROLOGIC: Alert, awake, oriented to self. No aphasia. Cranial nerves II-XII were tested. Pupils reactive. Spontaneous movement of the extremities noted. Deep tendon reflexes 1+. Both plantars a re downgoing. Sensory appears intact. Cerebellar gait deferred. IMPRESSION: Dementia and multiple medical problems, encephalopathy superimposed on dementia. Contin ue present management and also normal pressure hydrocephalus. PLAN: Continue present management and will follow up. Lauro Orozco MD cc: [phone] TT: 09/09/2016 21:46:59 Confirmation # [id number] Dictation # [id number] yuni
[2016-09-09 22:16] LABS: BLOOD UREA NITROGEN 10 mg/dL (7-21); CALCIUM 8.6 mg/dL (8.4-10.5); CARBON DIOXIDE 21 mmol/L (21-33); CHLORIDE 89 mmol/L (98-107); GFR AFRICAN-AMERICAN > 60; GLUCOSE,RANDOM 91 mg/dL (70-110); POTASSIUM 3.8 mmol/L (3.6-5.0)
[2016-09-09 22:26] LABS: SODIUM 119 mmol/L (132-148)
[2016-09-10 01:12] LABS: TOTAL PSA 2.1 ng/mL (<=4.0)
--- NOTE | 2016-09-10 06:13 | CP.PCM.PN ---
Subjective - Date & Time of Evaluation Date of Evaluation: 09/10/16 Time of Evaluation: 06:04 - Subjective Subjective: It was requested to renew mittens and bilateral wrist restraints. Patient seen at bedside. Is confused. Medical record was reviewed. This 66 year old white male was admitted Has PMH of CAD, S/P stent ,dilated CMP, Alzheimer's, dementia, chronic hydrocephalus,PTSD, anxiety. Objective - Vital Signs/Intake and Output Vital Signs (last 24 hours): Temp Pulse Resp BP Pulse Ox 98.6 F 72 11 L 130/56 L 96 09/10/16 05:46 09/10/16 05:40 09/10/16 05:40 09/10/16 05:00 09/09/16 16:50 Intake and Output: 09/09/16 09/10/16 18:59 06:59 Intake Total 1475 Output Total 750 6000 Balance 725 -6000 - Medications Medications: Current Medications Acetaminophen (Tylenol 325mg Tab) 650 mg PO Q6H PRN PRN Reason: Fever >100.4 F Last Admin: 09/09/16 14:10 Dose: 650 mg Heparin Sodium (Porcine) (Heparin) 5,000 units SC Q12 [facility] PRN Reason: Protocol Last Admin: 09/09/16 21:46 Dose: 5,000 units Ceftriaxone Sodium (Rocephin 2 Gm Ivpb) 2 gm in 100 mls @ 100 mls/hr IVPB DAILY [facility] PRN Reason: Protocol Last Admin: 09/09/16 09:41 Dose: 100 mls/hr Potassium Chloride 10 meq/ (Sodium Chloride) 1,005 mls @ 125 mls/hr IV .Q8H3M [facility] Last Admin: 09/10/16 03:00 Dose: 125 mls/hr Morphine Sulfate (Morphine) 2 mg IVP Q4H PRN PRN Reason: Pain, severe (8-10) Last Admin: 09/09/16 15:19 Dose: 2 mg Ondansetron HCl (Zofran Inj) 4 mg IVP Q8H PRN PRN Reason: Nausea/Vomiting Pantoprazole Sodium (Protonix Inj) 40 mg IVP DAILY [facility] Last Admin: 09/09/16 09:49 Dose: 40 mg - Labs Labs: 09/09/16 05:30 09/09/16 21:45 PT 11.3 Seconds (9.9-11.8) 04/29/17 10:37 INR 1.05 (0.93-1.08) 09/07/16 10:37 APTT 29.7 Seconds (23.7-30.8) 09/07/16 10:37 - Constitutional Appears: Well, No Acute Distress - ENT Exam ENT Exam: Normal External Ear Exam - Neck Exam Neck Exam: Normal Inspection - Respiratory Exam Respiratory Exam: NORMAL BREATHING PATTERN - Cardiovascular Exam Cardiovascular Exam: absent: JVD - GI/Abdominal Exam GI & Abdominal Exam: absent: Distended - Rectal Exam Rectal Exam: Deferred - Extremities Exam Extremities Exam: Normal Inspection - Back Exam Back Exam: NORMAL INSPECTION - Neurological Exam Neurological Exam: Altered - Psychiatric Exam Psychiatric exam: Agitated - Skin Skin Exam: Normal Color Assessment and Plan - Assessment and Plan (Free Text) Assessment: A/P:Dementia. Alzheimer's disease. CAD Hx Coronary stent placement. Chronic hydrocephalus. Dilated CMP. Bilateral mittens and wrist restraint ordered.
[2016-09-10 06:18] LABS: ADD MANUAL DIFF? NO
[2016-09-10 06:27] LABS: BASO # 0.02 K/mm3 (0.0-2.0); BASO % 0.3 % (0.0-3.0); EOS # 0.1 (0.0-0.7); EOS % 1.5 % (1.5-5.0); GRAN # 5.39 (1.4-6.5); GRAN % 82.8 % (50.0-68.0); HEMATOCRIT 28.8 % (42.0-52.0); LYMPH # 0.5 (1.2-3.4); MEAN CELL VOLUME 81.1 fL (80.0-105.0); MEAN CORPUSCULAR HEMOGLOBIN 28.7 pg (25.0-35.0); MEAN CORPUSCULAR HGB CONC 35.4 g/dl (31.0-37.0); MEAN PLATELET VOLUME 8.5 fl (7.0-11.0); MONO # 0.5 (0.1-0.6); MONO % 7.4 % (1.0-6.0); PLATELET COUNT 143 10^3/uL (120.0-450.0); RED CELL DISTRIBUTION WIDTH 12.8 % (11.5-14.5); WHITE BLOOD COUNT 6.5 10^3/ul (4.5-11.0)
[2016-09-10 06:35] LABS: ALB/GLOB RATIO 1.1 (1.1-1.8); ALKALINE PHOSPHATASE 83 U/L (38-133); ALT/SGPT 44 U/L (7-56); AST/SGOT 37 U/L (15-59); BILIRUBIN,TOTAL 0.7 mg/dL (0.2-1.3); BLOOD UREA NITROGEN 8 mg/dL (7-21); CALCIUM 8.3 mg/dL (8.4-10.5); CARBON DIOXIDE 22 mmol/L (21-33); CHLORIDE 91 mmol/L (98-107); GFR AFRICAN-AMERICAN > 60; GLUCOSE,RANDOM 88 mg/dL (70-110); POTASSIUM 3.8 mmol/L (3.6-5.0); SODIUM 123 mmol/L (132-148)
--- NOTE | 2016-09-10 08:54 | CP.CCUPN ---
<KarenLona - Last Filed: 09/10/16 11:33> CCU Subjective - Physician Review Events Since Last Encounter (Free Text): 09/10/16 08:51 Dilirium overnight requiring mitten and restraints Mentation improves in AM. Off restraints Paracentesis yesterday Abdominal pain improves today CCU Objective - Vital Signs / Intake & Output Vital Signs (Last 4 hours): Vital Signs Temp Pulse Resp BP 09/10/16 07:32 97.7 F 09/10/16 07:20 99 H 5 L 09/10/16 07:10 80 25 H 09/10/16 07:01 88 21 145/81 09/10/16 06:50 84 17 09/10/16 06:40 83 16 09/10/16 06:30 74 13 09/10/16 06:20 82 12 09/10/16 06:10 87 09/10/16 06:02 90 28 H 151/89 H 09/10/16 06:00 98 H 25 H 09/10/16 05:50 73 11 L 09/10/16 05:46 98.6 F 09/10/16 05:45 98.3 F 09/10/16 05:40 72 11 L 09/10/16 05:30 74 11 L 09/10/16 05:20 76 13 09/10/16 05:10 74 11 L 09/10/16 05:00 88 130/56 L Intake and Output (Last 8hrs): Intake & Output 09/09/16 09/10/16 09/10/16 22:59 06:59 14:59 Intake Total 1475 1375 Output Total 6750 1600 Balance -5275 -225 Weight 209 lb Intake: IV 1475 1375 Right Forearm 1375 Right Wrist 1475 Oral 0 Output: Urine 750 1600 Urethral (Gu) 750 1600 Other 6000 Other: Voiding Method Indwelling Catheter # Bowel Movements 0 - Physical Exam Head: Positive for: Atraumatic, Normocephalic Pupils: Positive for: PERRL (4mm equally reactive) Extroacular Muscles: Positive for: EOMI Conjunctiva: Positive for: Normal Mouth: Positive for: Moist Mucous Membranes Neck: Positive for: Normal Range of Motion Respiratory/Chest: Positive for: Clear to Auscultation, Good Air Exchange. Negative for: Respiratory Distress, Accessory Muscle Use Cardiovascular: Positive for: Regular Rate and Rhythm, Normal S1, S2. Negative for: Murmurs Abdomen: Positive for: Normal Bowel Sounds (dressing d/c/i). Negative for: Tenderness, Distention, Peritoneal Signs Lower Extremity: Positive for: Normal Inspection. Negative for: Edema Neurological: Positive for: GCS=15, CN II-XII Intact, Speech Normal Skin: Positive for: Warm, Dry, Normal Color. Negative for: Rashes Psychiatric: Positive for: Alert, Oriented x 3, Normal Insight, Normal Concentration - Medications Active Medications: Active Medications Generic Name Dose Route Start Last Admin Trade Name Freq PRN Reason Stop Dose Admin Acetaminophen 650 mg 09/07/16 16:46 09/09/16 14:10 Tylenol 325mg Tab PO 650 mg Q6H PRN Administration Fever >100.4 F Heparin Sodium (Porcine) 5,000 units 09/07/16 22:00 09/09/16 21:46 Heparin SC 5,000 units Q12 TEODORO Administration Protocol Ceftriaxone Sodium 2 gm in 100 mls @ 100 mls/hr 09/07/16 16:45 09/09/16 09:41 Rocephin 2 Gm Ivpb IVPB 100 mls/hr DAILY TEODORO Administration Protocol Potassium Chloride 10 meq/ 1,005 mls @ 125 mls/hr 09/08/16 10:17 09/10/16 03: 00 Sodium Chloride IV 125 mls/hr .Q8H3M TEODORO Administration Morphine Sulfate 2 mg 09/09/16 14:26 09/09/16 15:19 Morphine IVP 2 mg Q4H PRN Administration Pain, severe (8-10) Ondansetron HCl 4 mg 09/07/16 16:46 Zofran Inj IVP Q8H PRN Nausea/Vomiting Pantoprazole Sodium 40 mg 09/08/16 10:00 09/09/16 09:49 Protonix Inj IVP 40 mg DAILY TEODORO Administration - Patient Studies Lab Studies: Microbiology Studies 09/08/16 08:41 Urine Culture - Final Urine No Growth (<1,000 CFU/ML) Lab Studies 09/10/16 09/10/16 09/09/16 Range/Units 05:30 05: 21:45 WBC 6.5 (4.5-11.0) 10^3/ul RBC 3.55 (3.5-6.1) 10^6/uL Hgb 10.2 L (14.0-18.0) gm/dL Hct 28.8 L (42.0-52.0) % MCV 81.1 (80.0-105.0) fL MCH 28.7 (25.0-35.0) pg MCHC 35.4 (31.0-37.0) g/dl RDW 12.8 (11.5-14.5) % Plt Count 143 (120.0-450.0) 10^3/uL MPV 8.5 (7.0-11.0) fl Gran % 82.8 H (50.0-68.0) % Lymph % (Auto) 8.0 L (22.0-35.0) % [place] % (Auto) 7.4 H (1.0-6.0) % Eos % (Auto) 1.5 (1.5-5.0) % Baso % (Auto) 0.3 (0.0-3.0) % Gran # 5.39 (1.4-6.5) Lymph # 0.5 L (1.2-3.4) [place] # 0.5 (0.1-0.6) Eos # 0.1 (0.0-0.7) Baso # 0.02 (0.0-2.0) K/mm3 Sodium 123 L 119 L* (132-148) mmol/L Potassium 3.8 3.8 (3.6-5.0) mmol/L Chloride 91 L 89 L (98-107) mmol/L Carbon Dioxide 22 21 (21-33) mmol/L Anion Gap 14 13 (10-20) BUN 8 10 (7-21) mg/dL Creatinine 0.7 0.7 (0.5-1.4) mg/dL Est GFR ( Amer) > 60 > 60 Est GFR (Non-Af Amer) > 60 > 60 Random Glucose 88 91 (70-110) mg/dL Calcium 8.3 L 8.6 (8.4-10.5) mg/dL Total Bilirubin 0.7 (0.2-1.3) mg/dL AST 37 (15-59) U/L ALT 44 (7-56) U/L Alkaline Phosphatase 83 (38-133) U/L Total Protein 6.0 (5.8-8.3) g/dL Albumin 3.1 (3.0-4.8) g/dL Globulin 2.9 gm/dL Albumin/Globulin Ratio 1.1 (1.1-1.8) Free PSA ng/mL % Free PSA (>25) Percent Total PSA (<=4.0) ng/mL Prostate Cancer Risk Percent 09/09/16 09/09/16 09/07/16 Range/Units 14:13 10:00 22:30 WBC (4.5-11.0) 10^3/ul RBC (3.5-6.1) 10^6/uL Hgb (14.0-18.0) gm/dL Hct (42.0-52.0) % MCV (80.0-105.0) fL MCH (25.0-35.0) pg MCHC (31.0-37.0) g/dl RDW (11.5-14.5) % Plt Count (120.0-450.0) 10^3/uL MPV (7.0-11.0) fl Gran % (50.0-68.0) % Lymph % (Auto) (22.0-35.0) % [place] % (Auto) (1.0-6.0) % Eos % (Auto) (1.5-5.0) % Baso % (Auto) (0.0-3.0) % Gran # (1.4-6.5) Lymph # (1.2-3.4) [place] # (0.1-0.6) Eos # (0.0-0.7) Baso # (0.0-2.0) K/mm3 Sodium 119 L* 118 L* (132-148) mmol/L Potassium 4.1 3.8 (3.6-5.0) mmol/L Chloride 88 L 87 L (98-107) mmol/L Carbon Dioxide 21 22 (21-33) mmol/L Anion Gap 14 13 (10-20) BUN 10 10 (7-21) mg/dL Creatinine 0.7 0.7 (0.5-1.4) mg/dL Est GFR ( Amer) > 60 > 60 Est GFR (Non-Af Amer) > 60 > 60 Random Glucose 90 87 (70-110) mg/dL Calcium 8.6 8.3 L (8.4-10.5) mg/dL Total Bilirubin (0.2-1.3) mg/dL AST (15-59) U/L ALT (7-56) U/L Alkaline Phosphatase (38-133) U/L Total Protein (5.8-8.3) g/dL Albumin (3.0-4.8) g/dL Globulin gm/dL Albumin/Globulin Ratio (1.1-1.8) Free PSA 0.3 ng/mL % Free PSA 14 L (>25) Percent Total PSA 2.1 (<=4.0) ng/mL Prostate Cancer Risk 1 Percent Laboratory Results - last 24 hr 09/07/16 09/09/16 09/09/16 22:30 10:00 14:13 WBC RBC Hgb Hct MCV MCH MCHC RDW Plt Count MPV Gran % Lymph % (Auto) [place] % (Auto) Eos % (Auto) Baso % (Auto) Gran # Lymph # [place] # Eos # Baso # Sodium 118 L* 119 L* Potassium 3.8 4.1 Chloride 87 L 88 L Carbon Dioxide 22 21 Anion Gap 13 14 BUN 10 10 Creatinine 0.7 0.7 Est GFR ( Amer) > 60 > 60 Est GFR (Non-Af Amer) > 60 > 60 Random Glucose 87 90 Calcium 8.3 L 8.6 Total Bilirubin AST ALT Alkaline Phosphatase Total Protein Albumin Globulin Albumin/Globulin Ratio Free PSA 0.3 % Free PSA 14 L Total PSA 2.1 Prostate Cancer Risk 1 09/09/16 09/10/16 09/10/16 21:45 05:30 05:30 WBC 6.5 RBC 3.55 Hgb 10.2 L Hct 28.8 L MCV 81.1 MCH 28.7 MCHC 35.4 RDW 12.8 Plt Count 143 MPV 8.5 Gran % 82.8 H Lymph % (Auto) 8.0 L [place] % (Auto) 7.4 H Eos % (Auto) 1.5 Baso % (Auto) 0.3 Gran # 5.39 Lymph # 0.5 L [place] # 0.5 Eos # 0.1 Baso # 0.02 Sodium 119 L* 123 L Potassium 3.8 3.8 Chloride 89 L 91 L Carbon Dioxide 21 22 Anion Gap 13 14 BUN 10 8 Creatinine 0.7 0.7 Est GFR ( Amer) > 60 > 60 Est GFR (Non-Af Amer) > 60 > 60 Random Glucose 91 88 Calcium 8.6 8.3 L Total Bilirubin 0.7 AST 37 ALT 44 Alkaline Phosphatase 83 Total Protein 6.0 Albumin 3.1 Globulin 2.9 Albumin/Globulin Ratio 1.1 Free PSA % Free PSA Total PSA Prostate Cancer Risk Fingerstick Blood Sugar Results: 163 Assessment/Plan - Assessment and Plan (Free Text) Plan: 66M, with chronic hydrocephalus & CHF (diastolic and systolic), admitted in ICU for hyponatermia with AMS, abdominal pain, urinary retention, and fecal retention/constipation in the setting of massive ascites and new liver and pancreatic masses found on CT. Hyponatremia is chronic, likely from poor oral intake and SIADH in the setting of suspicious liver and pancreatic masses. Paracentesis (09/09) extracted 6L of peritonieal fluid. Specimen sent for processing. Cytology result will be back on Friday. Neural - Delirium - imrpoves - NPO for paracentesis - aspiration precaution - Morphine 2q4 for abdominal pain, improves Cardio - Hx CAD - BP 110-150s. Pulm - Maintain SaO2 > 95 GI - Pending decision on liver and pancreas bx - Ceftriaxone 2g daily SBP prophylasix - cytology result on Friday - Pending INR - Ceftriaxone 2g daily SBP prophylasix - IR drained 6L from paracentesis (09/09) - GI consult for poss fecal disimpaction, liver/pancreatic masses, ascites - Paracentesis at 5pm Ordered: Ascite perotoneal Cell count and differential, albumin, total protein, CEA, amylase, lipase, LDH, tg, glucose, Culture, gram stain, cytology - CEA and [id number] elevated - Start Clear liquid diet. advance if tolerated - started Colace + Miralax Renal - urinary retention - Gu on - strict i/o - Received IV contrast - Not oliguric - Pending PSA Endo - Chronic Hyponatremia - do not over-correct more than 12 meq/day. goal is to correct 4-5 per day. Na 123 today. At goal - Per nephro: NS@ 125 with 10 K - Called Dr. Yu office and let him know about pt transfer and the need to continual f/u Na - maintain euglycemic Heme - microcytic anemia - Pending occult blood stool Prophylasix - protonix, heparin q12 Disposition - Med/surg Consult - Urol = Mathews - Nephro = Ansoner - Cardio = Garza - GI = George - IR = Matos s/r/d/w Dr. Cynthia Tanner - Date & Time Date: 09/10/16 Time: 08:52 <Flores CORONEL,Inaeliseo H - Last Filed: 09/10/16 14:00> CCU Objective - Vital Signs / Intake & Output Vital Signs (Last 4 hours): Vital Signs Temp Pulse Resp BP 09/10/16 13:40 83 19 09/10/16 13:30 82 29 H 09/10/16 13:20 82 21 09/10/16 13:14 84 18 105/42 L 09/10/16 13:10 84 21 09/10/16 13:00 79 19 68/43 L 09/10/16 12:50 86 19 09/10/16 12:40 93 H 38 H 09/10/16 12:30 94 H 30 H 09/10/16 12:21 98.1 F 09/10/16 12:20 96 H 21 09/10/16 12:10 86 16 09/10/16 12:00 90 15 129/71 09/10/16 11:50 97 H 21 09/10/16 11:40 88 19 09/10/16 11:30 81 16 09/10/16 11:20 81 17 09/10/16 11:10 78 19 09/10/16 11:01 80 20 126/43 L 09/10/16 11:00 77 14 09/10/16 10:50 79 20 09/10/16 10:40 85 15 09/10/16 10:30 84 16 09/10/16 10:20 84 17 09/10/16 10:10 84 27 H 09/10/16 10:00 84 22 120/55 L Intake and Output (Last 8hrs): Intake & Output 09/09/16 09/10/16 09/10/16 22:59 06:59 14:59 Intake Total 1475 1375 Output Total 6750 1600 Balance -5275 -225 Weight 209 lb Intake: IV 1475 1375 Right Forearm 1375 Right Wrist 1475 Oral 0 Output: Urine 750 1600 Urethral (Gu) 750 1600 Other 6000 Other: Voiding Method Indwelling Catheter Indwelling Catheter # Bowel Movements 0 - Medications Active Medications: Active Medications Generic Name Dose Route Start Last Admin Trade Name Freq PRN Reason Stop Dose Admin Acetaminophen 650 mg 09/07/16 16:46 09/09/16 14:10 Tylenol 325mg Tab PO 650 mg Q6H PRN Administration Fever >100.4 F Docusate Sodium 100 mg 09/10/16 11:30 09/10/16 11:41 Colace PO 100 mg BID TEODORO Administration Heparin Sodium (Porcine) 5,000 units 09/07/16 22:00 09/10/16 09:03 Heparin SC 5,000 units Q12 TEODORO Administration Protocol Ceftriaxone Sodium 2 gm in 100 mls @ 100 mls/hr 09/07/16 16:45 09/10/16 09:02 Rocephin 2 Gm Ivpb IVPB 100 mls/hr DAILY TEODORO Administration Protocol Potassium Chloride 10 meq/ 1,005 mls @ 125 mls/hr 09/08/16 10:17 09/10/16 11: 39 Sodium Chloride IV 125 mls/hr .Q8H3M TEODORO Administration Morphine Sulfate 2 mg 09/09/16 14:26 09/09/16 15:19 Morphine IVP 2 mg Q4H PRN Administration Pain, severe (8-10) Ondansetron HCl 4 mg 09/07/16 16:46 Zofran Inj IVP Q8H PRN Nausea/Vomiting Pantoprazole Sodium 40 mg 09/08/16 10:00 09/10/16 09:02 Protonix Inj IVP 40 mg DAILY TEODORO Administration Polyethylene Glycol 17 gm 09/11/16 10:00 Miralax PO DAILY TEODORO - Patient Studies Lab Studies: Microbiology Studies 09/08/16 08:41 Urine Culture - Final Urine No Growth (<1,000 CFU/ML) Lab Studies 09/10/16 09/10/16 09/10/16 Range/Units 12:30 12:30 10:42 WBC (4.5-11.0) 10^3/ul RBC (3.5-6.1) 10^6/uL Hgb (14.0-18.0) gm/dL Hct (42.0-52.0) % MCV (80.0-105.0) fL MCH (25.0-35.0) pg MCHC (31.0-37.0) g/dl RDW (11.5-14.5) % Plt Count (120.0-450.0) 10^3/uL MPV (7.0-11.0) fl Gran % (50.0-68.0) % Lymph % (Auto) (22.0-35.0) % [place] % (Auto) (1.0-6.0) % Eos % (Auto) (1.5-5.0) % Baso % (Auto) (0.0-3.0) % Gran # (1.4-6.5) Lymph # (1.2-3.4) [place] # (0.1-0.6) Eos # (0.0-0.7) Baso # (0.0-2.0) K/mm3 PT 11.4 (9.9-11.8) Seconds INR 1.06 (0.93-1.08) Sodium 123 L 122 L (132-148) mmol/L Potassium 4.0 3.8 (3.6-5.0) mmol/L Chloride 92 L 92 L (98-107) mmol/L Carbon Dioxide 22 22 (21-33) mmol/L Anion Gap 13 12 (10-20) BUN 9 9 (7-21) mg/dL Creatinine 0.7 0.7 (0.5-1.4) mg/dL Est GFR ( Amer) > 60 > 60 Est GFR (Non-Af Amer) > 60 > 60 Random Glucose 123 H 94 (70-110) mg/dL Calcium 8.6 8.3 L (8.4-10.5) mg/dL Total Bilirubin (0.2-1.3) mg/dL AST (15-59) U/L ALT (7-56) U/L Alkaline Phosphatase (38-133) U/L Total Protein (5.8-8.3) g/dL Albumin (3.0-4.8) g/dL Globulin gm/dL Albumin/Globulin Ratio (1.1-1.8) Free PSA ng/mL % Free PSA (>25) Percent Total PSA (<=4.0) ng/mL Prostate Cancer Risk Percent Fluid Source Fluid Appearance (CLEAR) Fluid WBC (0.0-300.0) /uL Fluid RBC (0.0-0.0) /uL Fluid Tot Cell Count (0-0) Fluid Neutrophils (0-0) % Fluid Lymphocytes (0-0) % Fld Monocyte/Macrophag Fluid Comment Thoracentesis Fluid pH 09/10/16 09/10/16 09/09/16 Range/Units 05:30 05:30 21:45 WBC 6.5 (4.5-11.0) 10^3/ul RBC 3.55 (3.5-6.1) 10^6/uL Hgb 10.2 L (14.0-18.0) gm/dL Hct 28.8 L (42.0-52.0) % MCV 81.1 (80.0-105.0) fL MCH 28.7 (25.0-35.0) pg MCHC 35.4 (31.0-37.0) g/dl RDW 12.8 (11.5-14.5) % Plt Count 143 (120.0-450.0) 10^3/uL MPV 8.5 (7.0-11.0) fl Gran % 82.8 H (50.0-68.0) % Lymph % (Auto) 8.0 L (22.0-35.0) % [place] % (Auto) 7.4 H (1.0-6.0) % Eos % (Auto) 1.5 (1.5-5.0) % Baso % (Auto) 0.3 (0.0-3.0) % Gran # 5.39 (1.4-6.5) Lymph # 0.5 L (1.2-3.4) [place] # 0.5 (0.1-0.6) Eos # 0.1 (0.0-0.7) Baso # 0.02 (0.0-2.0) K/mm3 PT (9.9-11.8) Seconds INR (0.93-1.08) Sodium 123 L 119 L* (132-148) mmol/L Potassium 3.8 3.8 (3.6-5.0) mmol/L Chloride 91 L 89 L (98-107) mmol/L Carbon Dioxide 22 21 (21-33) mmol/L Anion Gap 14 13 (10-20) BUN 8 10 (7-21) mg/dL Creatinine 0.7 0.7 (0.5-1.4) mg/dL Est GFR ( Amer) > 60 > 60 Est GFR (Non-Af Amer) > 60 > 60 Random Glucose 88 91 (70-110) mg/dL Calcium 8.3 L 8.6 (8.4-10.5) mg/dL Total Bilirubin 0.7 (0.2-1.3) mg/dL AST 37 (15-59) U/L ALT 44 (7-56) U/L Alkaline Phosphatase 83 (38-133) U/L Total Protein 6.0 (5.8-8.3) g/dL Albumin 3.1 (3.0-4.8) g/dL Globulin 2.9 gm/dL Albumin/Globulin Ratio 1.1 (1.1-1.8) Free PSA ng/mL % Free PSA (>25) Percent Total PSA (<=4.0) ng/mL Prostate Cancer Risk Percent Fluid Source Fluid Appearance (CLEAR) Fluid WBC (0.0-300.0) /uL Fluid RBC (0.0-0.0) /uL Fluid Tot Cell Count (0-0) Fluid Neutrophils (0-0) % Fluid Lymphocytes (0-0) % Fld Monocyte/Macrophag Fluid Comment Thoracentesis Fluid pH 09/09/16 09/09/16 09/09/16 Range/Units 21:43 14:13 09:00 WBC (4.5-11.0) 10^3/ul RBC (3.5-6.1) 10^6/uL Hgb (14.0-18.0) gm/dL Hct (42.0-52.0) % MCV (80.0-105.0) fL MCH (25.0-35.0) pg MCHC (31.0-37.0) g/dl RDW (11.5-14.5) % Plt Count (120.0-450.0) 10^3/uL MPV (7.0-11.0) fl Gran % (50.0-68.0) % Lymph % (Auto) (22.0-35.0) % [place] % (Auto) (1.0-6.0) % Eos % (Auto) (1.5-5.0) % Baso % (Auto) (0.0-3.0) % Gran # (1.4-6.5) Lymph # (1.2-3.4) [place] # (0.1-0.6) Eos # (0.0-0.7) Baso # (0.0-2.0) K/mm3 PT (9.9-11.8) Seconds INR (0.93-1.08) Sodium 119 L* (132-148) mmol/L Potassium 4.1 (3.6-5.0) mmol/L Chloride 88 L (98-107) mmol/L Carbon Dioxide 21 (21-33) mmol/L Anion Gap 14 (10-20) BUN 10 (7-21) mg/dL Creatinine 0.7 (0.5-1.4) mg/dL Est GFR ( Amer) > 60 Est GFR (Non-Af Amer) > 60 Random Glucose 90 (70-110) mg/dL Calcium 8.6 (8.4-10.5) mg/dL Total Bilirubin (0.2-1.3) mg/dL AST (15-59) U/L ALT (7-56) U/L Alkaline Phosphatase (38-133) U/L Total Protein (5.8-8.3) g/dL Albumin (3.0-4.8) g/dL Globulin gm/dL Albumin/Globulin Ratio (1.1-1.8) Free PSA ng/mL % Free PSA (>25) Percent Total PSA (<=4.0) ng/mL Prostate Cancer Risk Percent Fluid Source Peritoneal/ascites Fluid Appearance Cloudy (CLEAR) Fluid WBC 521.0 H (0.0-300.0) /uL Fluid RBC 4000.0 H (0.0-0.0) /uL Fluid Tot Cell Count 100 H (0-0) Fluid Neutrophils 31.1 H (0-0) % Fluid Lymphocytes 68.9 H (0-0) % Fld Monocyte/Macrophag TEST NOT PERFORMED Fluid Comment Lt. yellow Thoracentesis Fluid pH 7.0 09/07/ Range/Units 22:30 WBC (4.5-11.0) 10^3/ul RBC (3.5-6.1) 10^6/uL Hgb (14.0-18.0) gm/dL Hct (42.0-52.0) % MCV (80.0-105.0) fL MCH (25.0-35.0) pg MCHC (31.0-37.0) g/dl RDW (11.5-14.5) % Plt Count (120.0-450.0) 10^3/uL MPV (7.0-11.0) fl Gran % (50.0-68.0) % Lymph % (Auto) (22.0-35.0) % [place] % (Auto) (1.0-6.0) % Eos % (Auto) (1.5-5.0) % Baso % (Auto) (0.0-3.0) % Gran # (1.4-6.5) Lymph # (1.2-3.4) [place] # (0.1-0.6) Eos # (0.0-0.7) Baso # (0.0-2.0) K/mm3 PT (9.9-11.8) Seconds INR (0.93-1.08) Sodium (132-148) mmol/L Potassium (3.6-5.0) mmol/L Chloride (98-107) mmol/L Carbon Dioxide (21-33) mmol/L Anion Gap (10-20) BUN (7-21) mg/dL Creatinine (0.5-1.4) mg/dL Est GFR ( Amer) Est GFR (Non-Af Amer) Random Glucose (70-110) mg/dL Calcium (8.4-10.5) mg/dL Total Bilirubin (0.2-1.3) mg/dL AST (15-59) U/L ALT (7-56) U/L Alkaline Phosphatase (38-133) U/L Total Protein (5.8-8.3) g/dL Albumin (3.0-4.8) g/dL Globulin gm/dL Albumin/Globulin Ratio (1.1-1.8) Free PSA 0.3 ng/mL % Free PSA 14 L (>25) Percent Total PSA 2.1 (<=4.0) ng/mL Prostate Cancer Risk 1 Percent Fluid Source Fluid Appearance (CLEAR) Fluid WBC (0.0-300.0) /uL Fluid RBC (0.0-0.0) /uL Fluid Tot Cell Count (0-0) Fluid Neutrophils (0-0) % Fluid Lymphocytes (0-0) % Fld Monocyte/Macrophag Fluid Comment Thoracentesis Fluid pH Laboratory Results - last 24 hr 09/07/16 09/09/16 09/09/16 22:30 09:00 14:13 WBC RBC Hgb Hct MCV MCH MCHC RDW Plt Count MPV Gran % Lymph % (Auto) [place] % (Auto) Eos % (Auto) Baso % (Auto) Gran # Lymph # [place] # Eos # Baso # PT INR Sodium 119 L* Potassium 4.1 Chloride 88 L Carbon Dioxide 21 Anion Gap 14 BUN 10 Creatinine 0.7 Est GFR ( Amer) > 60 Est GFR (Non-Af Amer) > 60 Random Glucose 90 Calcium 8.6 Total Bilirubin AST ALT Alkaline Phosphatase Total Protein Albumin Globulin Albumin/Globulin Ratio Free PSA 0.3 % Free PSA 14 L Total PSA 2.1 Prostate Cancer Risk 1 Fluid Source Peritoneal/ascites Fluid Appearance Cloudy Fluid WBC 521.0 H Fluid RBC 4000.0 H Fluid Tot Cell Count 100 H Fluid Neutrophils 31.1 H Fluid Lymphocytes 68.9 H Fld Monocyte/Macrophag TEST NOT PERFORMED Fluid Comment Lt. yellow Thoracentesis Fluid pH 09/09/16 09/09/16 09/10/16 21:43 21:45 05:30 WBC RBC Hgb Hct MCV MCH MCHC RDW Plt Count MPV Gran % Lymph % (Auto) [place] % (Auto) Eos % (Auto) Baso % (Auto) Gran # Lymph # [place] # Eos # Baso # PT INR Sodium 119 L* 123 L Potassium 3.8 3.8 Chloride 89 L 91 L Carbon Dioxide 21 22 Anion Gap 13 14 BUN 10 8 Creatinine 0.7 0.7 Est GFR ( Amer) > 60 > 60 Est GFR (Non-Af Amer) > 60 > 60 Random Glucose 91 88 Calcium 8.6 8.3 L Total Bilirubin 0.7 AST 37 ALT 44 Alkaline Phosphatase 83 Total Protein 6.0 Albumin 3.1 Globulin 2.9 Albumin/Globulin Ratio 1.1 Free PSA % Free PSA Total PSA Prostate Cancer Risk Fluid Source Fluid Appearance Fluid WBC Fluid RBC Fluid Tot Cell Count Fluid Neutrophils Fluid Lymphocytes Fld Monocyte/Macrophag Fluid Comment Thoracentesis Fluid pH 7.0 09/10/16 09/10/16 09/10/16 05:30 10:42 12:30 WBC 6.5 RBC 3.55 Hgb 10.2 L Hct 28.8 L MCV 81.1 MCH 28.7 MCHC 35.4 RDW 12.8 Plt Count 143 MPV 8.5 Gran % 82.8 H Lymph % (Auto) 8.0 L [place] % (Auto) 7.4 H Eos % (Auto) 1.5 Baso % (Auto) 0.3 Gran # 5.39 Lymph # 0.5 L [place] # 0.5 Eos # 0.1 Baso # 0.02 PT INR Sodium 122 L 123 L Potassium 3.8 4.0 Chloride 92 L 92 L Carbon Dioxide 22 22 Anion Gap 12 13 BUN 9 9 Creatinine 0.7 0.7 Est GFR ( Amer) > 60 > 60 Est GFR (Non-Af Amer) > 60 > 60 Random Glucose 94 123 H Calcium 8.3 L 8.6 Total Bilirubin AST ALT Alkaline Phosphatase Total Protein Albumin Globulin Albumin/Globulin Ratio Free PSA % Free PSA Total PSA Prostate Cancer Risk Fluid Source Fluid Appearance Fluid WBC Fluid RBC Fluid Tot Cell Count Fluid Neutrophils Fluid Lymphocytes Fld Monocyte/Macrophag Fluid Comment Thoracentesis Fluid pH 09/10/16 12:30 WBC RBC Hgb Hct MCV MCH MCHC RDW Plt Count MPV Gran % Lymph % (Auto) [place] % (Auto) Eos % (Auto) Baso % (Auto) Gran # Lymph # [place] # Eos # Baso # PT 11.4 INR 1.06 Sodium Potassium Chloride Carbon Dioxide Anion Gap BUN Creatinine Est GFR ( Amer) Est GFR (Non-Af Amer) Random Glucose Calcium Total Bilirubin AST ALT Alkaline Phosphatase Total Protein Albumin Globulin Albumin/Globulin Ratio Free PSA % Free PSA Total PSA Prostate Cancer Risk Fluid Source Fluid Appearance Fluid WBC Fluid RBC Fluid Tot Cell Count Fluid Neutrophils Fluid Lymphocytes Fld Monocyte/Macrophag Fluid Comment Thoracentesis Fluid pH Critical Care Progress Note - Nutrition Nutrition: Nutrition Category Date Time Status Regular Diet [DIET] Diets 09/10/16 Lunch Ordered Attending/Attestation - Attestation I have personally seen and examined this patient.: Yes I have fully participated in the care of the patient.: Yes I have reviewed all pertinent clinical information: Yes Notes (Text): 09/10/16 13:58 66 y/o M w/ Symptopamtic Hyponatremia Na correcting accordingly, currently 123. On Normal saline, monitored by nephrology at this point. Pt seems to have had hypovolemic hyponatremia Large volume paracentesis was done yesterday awaiting cytology results , hoping for diagnosis of the pancreatic mass. Currently stable to tranfer to regular floor. Poor prognosis. Out of bed to chair, heparin sq tid for DVT P. cc time 45 min
[2016-09-10] MEDS: cefTRIAXone 2 GM IN NS 2 GM/100 ML BAG IVPB SCH (09:02)
--- NOTE | 2016-09-10 09:02 | PN ---
DATE: 09/10/2016 SUBJECTIVE: The patient is seen and examined in the CCU. No acute events overnight. He remains afebrile and hemodynamically stable and with continued waxing and waning in his mental status. This morning, he appears awake and alert and rather jovial. He states he feels okay, and largely offers no complaints. OBJECTIVE: VITAL SIGNS: Temperature 97.7, pulse 99, blood pressure 145/80, respiratory rate 20, oxygen saturation 96% on 2 liters nasal cannula. GENERAL: A frail elderly man, appearing his stated age, lying in bed in no apparent distress. HEENT: Normocephalic, atraumatic. PERRL. EOMI. No scleral icterus. Mild conjunctival pallor is noted. NECK: No JVD. LUNGS: Decreased breath sounds to the bases with bibasilar crackles. CARDIOVASCULAR: Regular rate and rhythm, normal S1, S2. ABDOMEN: Normoactive bowel sounds, soft, mildly distended with ascites. No rigidity, no tympany. EXTREMITIES: No edema. NEUROLOGIC: Awake and alert, oriented to person, able to follow simple commands. LABORATORY DATA: WBC 6.5 with 83% neutrophils, hemoglobin 10, hematocrit 29, platelets 143. Sodium 123, potassium 3.8, chloride 91, bicarb 22. BUN 8, creatinine 0.7. Glucose 88. Blood cultures with no growth to date. Urine culture with no growth to date. ASSESSMENT: The patient is a 66-year-old man with multiple medical comorbidities who presented to the Emergency Department for evaluation of a several-day history of malaise, recurrent falls, apathy, decreased p.o. intake, altered mental status, and abdominal distention, and who was admitted to the ICU for management of profound hyponatremia, new onset massive ascites and with an ongoing workup for a newly diagnosed pancreatic mass with possible liver metastases. PLAN: 1. Altered mental status, etiology likely secondary to toxic metabolic encephalopathy with most likely culprit being profound hyponatremia. Input from Dr. Orozco noted and appreciated. We will continue with current treatment regimen. 2. Symptomatic hyponatremia, resolving, etiology likely multifactorial with culprit being depletional hyponatremia in the setting of poor oral intake, as well as possibility of SIADH in the setting of an underlying malignancy. Input from Dr. Lane noted. Continue with gentle IV fluid hydration. 3. Ascites, new onset. Dr. Francisco Matos has been consulted for diagnostic and therapeutic abdominal paracentesis. Input from Dr. George of GI also noted, and agree that pursuing a liver biopsy is feasible for tissue diagnosis would be prudent. 4. Pancreatic mass. Input from Dr. uV noted and appreciated. As above , we will discuss with Dr. Francisco Matos the feasibility of pursuing a tissue biopsy. 5. Dilated cardiomyopathy. The patient remains hemodynamically stable. Input from Dr. Garza noted and appreciated. 6. Urinary retention. Input from Dr. Mathews noted, and the patient has been advised to maintain Gu catheter in place. The patient continues to have good urinary output with approximately 2.3 liters of urine in the last 24 hours. 7. Chronic normal-pressure hydrocephalus. CT on this admission demonstrates no change from prior. No indication for further treatment, as per Dr. Orozco of neurology. 8. CAD, status post PCI with stent placement. The patient remains chest-pain free. Continue with present management. 9. Microcytic anemia. Stool for occult blood is pending. H and H remain stable. We will defer to Dr. Varner and Dr. Vu regarding necessity for iron infusions versus p.o. iron treatment. 10. Alzheimer's dementia. 11. Prophylaxis. Continue with Protonix for GI and heparin for DVT prophylaxis. CODE STATUS: Full code. Tom Powell MD cc: [id number] TT: 09/10/2016 09:01:41 Confirmation # [id number] Dictation # [id number] jn JOVANNI
[2016-09-10 09:26] LABS: BODY FLUID TYPE PERITONEAL/ASCITES
[2016-09-10 09:45] LABS: BF GROSS APPEARANCE CLOUDY (CLEAR); BODY FLUID TOTAL COUNT 100 (0-0)
--- NOTE | 2016-09-10 10:16 | US ---
PROCEDURE: Ultrasound guided paracentesis. HISTORY: Pancreatic mass with liver metastasis, carcinomatosis, and ascites. Needs paracentesis. PHYSICIAN(S): Francisco Matos MD. TECHNIQUE: The relative risks and indications for the procedure were explained to the patient and his daughter and informed written consent obtained. Sonography of the abdomen was performed in a supine position. This revealed a moderate amount of non-loculated ascites, greatest in the right lower quadrant. A puncture site was selected and the area was prepped and draped in the usual sterile fashion. 1% Xylocaine was used to anesthetize the skin and soft tissues. A 7 Upper Sorbian paracentesis catheter was trocared into the right lower quadrantand 6000 cc of vamshi fluid aspirated. A cytology specimen was sent IMPRESSION: Ultrasound-guided paracentesis in the right lower quadrant. 6000 cc of fluid were aspirated. A cytology specimen was sent
[2016-09-10 10:57] LABS: BLOOD UREA NITROGEN 9 mg/dL (7-21); CALCIUM 8.3 mg/dL (8.4-10.5); CARBON DIOXIDE 22 mmol/L (21-33); CHLORIDE 92 mmol/L (98-107); GFR AFRICAN-AMERICAN > 60; GLUCOSE,RANDOM 94 mg/dL (70-110); POTASSIUM 3.8 mmol/L (3.6-5.0); SODIUM 122 mmol/L (132-148)
--- NOTE | 2016-09-10 11:46 | PN ---
DATE: 09/10/2016 The patient is without shortness breath. He is status post paracentesis. PHYSICAL EXAMINATION: VITAL SIGNS: Blood pressure is 130/45, the heart rate is in the 80s. NECK: Negative JVD. LUNGS: Without rales. HEART: Reveals S1, S2. EXTREMITIES: Without edema. LABORATORY DATA: Hemoglobin is 10.2. Chemistries: Sodium is up to 123. IMPRESSION: 1. Severe hyponatremia. 2. Pancreatic mass with possible liver metastasis. 3. Stable angina. 4. Coronary artery disease. 5. Dementia. 6. Status post paracentesis. PLAN: Given these findings, the patient's sodium is much improved. I have had a discussion with the family. They are unsure whether they want to tell their father of a t his current diagnosis of possible pancreatic CA. Francisco Garza MD cc: [phone] TT: 09/10/2016 11:45:28 Confirmation # [id number] Dictation # [id number] tn
--- NOTE | 2016-09-10 12:31 | PN ---
DATE: 09/10/2016 SUBJECTIVE: The patient is sitting up in a chair, comfortable. He underwent large volume paracentes is yesterday with removal of 6 liters of ascitic fluid. He denies any abdominal pain, nausea and vom iting. PHYSICAL EXAMINATION: GENERAL: The patient is awake and pleasantly confused. He is alert. VITAL SIGNS: Reveal that he is afebrile, blood pressure of 120/55, heart rate of 84. HEENT: Reveal sclerae to be white, conjunctivae pink. NECK: Supple. CHEST: Reveals decreased breath sounds at the bases. HEART: Reveals a regular rate and rhythm. ABDOMEN: Soft, nontender. EXTREMITIES: Show no edema. LABORATORY DATA: Reveal white blood cell count 6.5, hemoglobin 10.2. Chemistries reveal sodium up t o 122, BUN 9, creatinine 0.7. IMPRESSION: A 66-year-old male admitted to the hospital with generalized weakness, increasing confus ion, failure to thrive, loss of appetite, weight loss, who on CT scan of the abdomen and pelvis was f ound to have ascites, cirrhotic appearing liver, large mass in the body and neck of the pancreas with hypodense lesions in the liver suggestive of liver metastasis. His CEA was 358 with a CA19-9 of ove r 1000. Note, patient had a CT scan of the abdomen and pelvis at an outside facility about 2 months ago which revealed some mesenteric lymphadenopathy, but no mass in the pancreas or liver was describe d. 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 RECOMMENDATIONS: 1. Await cytology from ascites fluid. 2. Will advance diet as tolerated. 3. If ascites fluid pathology is negative for malignant cells, we will ask Dr. Mtaos to perform a CT -guided liver biopsy. 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 Daniel George MD cc: [id number] TT: 09/10/2016 12:31:12 Confirmation # [id number] Dictation # [id number] sn
[2016-09-10 12:47] LABS: BLOOD UREA NITROGEN 9 mg/dL (7-21); CALCIUM 8.6 mg/dL (8.4-10.5); CARBON DIOXIDE 22 mmol/L (21-33); CHLORIDE 92 mmol/L (98-107); GFR AFRICAN-AMERICAN > 60; GLUCOSE,RANDOM 123 mg/dL (70-110); SODIUM 123 mmol/L (132-148)
[2016-09-10 13:09] LABS: INR 1.06 (0.93-1.08)
--- NOTE | 2016-09-10 16:30 | PN ---
DATE: 09/10/2016 SUBJECTIVE: The patient is currently seen in ICU bed 3. He appears to be comfortable, sitting up in bed, daughter is at the bedside. He continues on normal saline 125 mL an hour with very slow improvement in his hyponatremia. His mental status has improved. He is status post paracentesis, 6 liters of fluid. Cell cytology is pending. MEDICATIONS: Medication list reviewed. The patient is currently on Colace, heparin subQ, MiraLax, p.r.n. morphine, IV fluid with normal saline at 125 mL an hour with 10 mEq of potassium chloride, IV Protonix, Rocephin, Tylenol p.r.n. , Zofran p.r.n. OBJECTIVE: INTAKE AND OUTPUT: Intake 2850, output 8350, which includes 6000 mL with his paracentesis. VITAL SIGNS: Blood pressure 126/53, heart rate is 76, respiratory rate is 18, temperature is 98.1. HEENT: Shows him to be normocephalic, atraumatic. Conjunctivae are pale. Sclerae are nonicteric. NECK: Supple without neck vein distention. CHEST: Clear to auscultation and percussion. No rales, no rhonchi, no wheezing. CARDIOVASCULAR: Shows an S1, S2 which are normal. No murmurs, rubs or gallops noted. ABDOMEN: Soft. Minimal distention. No rebound, no guarding, no masses. EXTREMITIES: Show trace pitting edema of his lower extremity with his legs elevated. No cyanosis, no clubbing. NEUROLOGIC: Shows him to be alert, oriented with no gross focal motor deficits noted. LABORATORY DATA AND IMAGING: Abdominal CT as noted in previous notes. Positive pancreatic mass, positive possible hepatic mets. Positive ascites. LABORATORY DATA: CBC: White blood cell count 6.5, hemoglobin 10.2 with a platelet count of 143,000. Coags are normal. Chemistries: Sodium remains stable at 123, up from a low of 109 on admission. Chloride is 92 with a CO2 of 22. BUN is 9 with a creatinine of 0.7. Glucose is 123 with a calcium of 8.6. Phosphorus and mag levels are normal. Iron saturations are 15%, CEA level is 358, both significantly elevated. PSA level is normal at 2.1. MICROBIOLOGY: All cultures are negative. ASSESSMENT: 1. Severe hyponatremia. The patient was symptomatic on admission. Concern here is that if patient continues to receive large volume infusions, he will likely redevelop ascites more quickly. I would like to switch patient over to 3 % saline at 30 mL an hour. This will likely in the next 24-48 hours bring the sodium level up into the low 130 range, which would be acceptable. I will discontinue intravenous normal saline. This has been discussed with the intensive care unit staff. The patient has a mixed bag. He has evidence for dilutional hyponatremia with volume overload and ascites. He also has evidence for depletional hyponatremia with a low urine sodium. His low serum uric acid goes along with dilutional hyponatremia. I will check thyroid function tests. I will check an a.m. cortisol level. There does not appear to be any evidence radiographically for any adrenal mets. 2. Anemia. The patient appears to have an iron deficiency anemia. I will discuss iron supplementation with the intensive care unit house staff. 3. Ascites with a pancreatic mass and likely hepatic mets. In all likelihood, patient has pancreatic cancer. A cytology from the paracentesis is pending. If no diagnosis can be made, patient will likely require a biopsy which can be done by interventional radiology. 4. History of atherosclerotic heart disease, history of congestive heart failure. These all appear to be stable. 5. Status post mild hypokalemia. The patient may receive oral potassium supplements with the discontinuation of large volume infusion. The patient will likely not require intravenous potassium in his intravenous fluids. PLAN: 1. Discussed with ICU house staff and ICU nursing staff. We will switch patient over to 3% saline at 30 mL an hour. We will continue to monitor chemistries on a daily basis. His next sodium level together with his SMA-7 will be in the morning tomorrow. We will discontinue hypertonic saline for any sodium greater than 132. 2. Check T4, TSH, T3, check a.m. cortisol level. 3. Await cytology results from patient's paracentesis. If no results are available, I agree with the decision for interventional radiology to do a biopsy to make a tissue diagnosis. 4. Discussed with patient and his daughter in detail. There is great concern about the possibility that he might have pancreatic cancer. 5. Continue to monitor accurate I's and O's. 6. Discuss iron supplementation with the ICU house staff. Greater than 35 minutes spent in the care of this patient. Chaitanya Yu MD cc: [phone] TT: 09/10/2016 16:30:36 Confirmation # [id number] Dictation # [id number] sn MTDD
[2016-09-10] MEDS: Sodium Chloride 3% 500 ML IV SCH (16:56)
[2016-09-10] MEDS: Morphine 2 mg/ml ISec IVP PRN ×2 (17:28→21:45)
--- NOTE | 2016-09-10 19:22 | CARD ---
APPROVED REPORT EXAM: Two-dimensional and M-mode echocardiogram with Doppler and color Doppler. INDICATION Cardiac Disease: CAD 2D DIMENSIONS Left Atrium (2D)4.8 (1.6-4.0cm)IVSd1.2 (0.7-1.1cm) LVDd5.4 (3.9-5.9cm)PWd1.4 (0.7-1.1cm) LVDs4.3 (2.5-4.0cm)FS (%) 20.0 % LVEF (%)40.6 (>50%) M-Mode DIMENSIONS Aortic Cusp Exc.3.10 (1.5-2.0cm) Aortic Valve AoV Peak Hjplghpd497.0cm/Pop Peak GR.11mmHg Mitral Valve MV E Yjjeggvs36.3cm/sMV A Ttcjmavw98.1cm/sE/A ratio0.7 TDI Lateral E' Peak V11.20cm/sMedial E' Peak V6.24cm/sE/Lateral E'4.5 E/Medial E'8.1 Pulmonary Valve PV Peak Hbyxumyv73.8cm/sPV Peak Grad.4mmHg Tricuspid Valve TR Peak Nxbdjapd168ux/sRAP [id number] Peak Gr.24mmHg [id number] LEFT VENTRICLE The left ventricle is normal size. There is borderline concentric left ventricular hypertrophy. The systolic function is moderately impaired. Septal and Apical hypokinesis Transmitral Doppler flow pattern is Grade I-abnormal relaxation pattern. RIGHT VENTRICLE The right ventricle is normal size. There is normal right ventricular wall thickness. The right ventricular systolic function is normal. ATRIA The left atrium is mildly dilated. The right atrium is mildly dilated. AORTIC VALVE The aortic valve is mildly thickened. MITRAL VALVE The mitral valve is moderately thickened. Mitral regurgitation is mild. TRICUSPID VALVE There is mild tricuspid regurgitation. There is mild pulmonary hypertension. GREAT VESSELS The aortic root is normal in size. The IVC is normal in size and collapses >50% with inspiration. PERICARDIAL EFFUSION There is no pericardial effusion. <Conclusion> The left ventricle is normal size. There is borderline concentric left ventricular hypertrophy. The systolic function is moderately impaired. Septal and Apical hypokinesis Transmitral Doppler flow pattern is Grade I-abnormal relaxation pattern. There is mild tricuspid regurgitation. There is mild pulmonary hypertension.
[2016-09-10 20:28] LABS: BLOOD UREA NITROGEN 10 mg/dL (7-21); CALCIUM 8.3 mg/dL (8.4-10.5); CARBON DIOXIDE 22 mmol/L (21-33); CHLORIDE 92 mmol/L (98-107); GFR AFRICAN-AMERICAN > 60; GLUCOSE,RANDOM 124 mg/dL (70-110); POTASSIUM 3.9 mmol/L (3.6-5.0); SODIUM 121 mmol/L (132-148)
[2016-09-10 20:44] LABS: FREE T4 1.53 ng/dL (0.78-2.19)
[2016-09-10 20:57] LABS: T3 0.52 ng/mL (0.97-1.69); THYROID STIMULATING HORMONE 3.48 mIU/mL (0.46-4.68)
--- NOTE | 2016-09-10 23:06 | PN ---
DATE: 09/10/2016 LOCATION: The patient is in CCU, bed 3. SUBJECTIVE: The patient is sitting up in chair, comfortable. He had undergone large volume paracent esis and more than 6 liters of fluid, which has been sent for cytology and various other cultures. T he patient denies any history of nausea, vomiting, abdominal pain or significant abdominal discomfort . PHYSICAL EXAMINATION: GENERAL: The patient is awake, alert, and oriented, in no acute distress. The patient is mildly con fused. VITAL SIGNS: Stable. He is afebrile, blood pressure is 120/56, heart rate is 84. HEENT: Head is normocephalic, atraumatic. Conjunctivae pale. Sclerae are anicteric. Pupils are eq ually reactive to light and accommodation. NECK: Supple. There is no adenopathy. LUNGS: Reveals decreased breath sounds in the bases both lung land posteriorly. HEART: Reveals PMI to be in the 5th intercostal space inside the midclavicular line. S1 and S2 are normal. No gallop or murmur is heard. ABDOMEN: Soft, nontender. Bowel sounds are present. No rebound, rigidity or guarding is noted. Th e patient has fluid thrill and fluid waves noted to be there because of the ascitic fluid. EXTREMITIES: Reveals no cyanosis, clubbing or edema. LABORATORY DATA: Reveals a white count 6.5, hemoglobin 10.2. Electrolytes reveal a sodium of 122, B UN of 9, creatinine 0.7. ASSESSMENT NOTES AND PLAN: This is a 66-year-old white male admitted to the hospital with generalize d weakness, increasing confusion, failure to thrive, loss of appetite, weight loss and findings of a CAT scan of the abdomen and pelvis to show ascites, cirrhotic-appearing liver, a large mass in body a nd neck of the pancreas, with a hyperdense lesion in the liver. CA is 358, CA 19-9, greater than 100 0. The patient had a CAT scan of the abdomen and pelvis at an outside facility 2 months ago, which r eveals some mesenteric adenopathy, but no mass in the pancreas as described. The patient appears to have stage IV carcinoma of the pancreas with liver metastasis. I reviewed with GI about repeating cytology from this pleural fluid. The patient's diet has been abby erated. The ascitic fluid pathology and cytology is negative. The patient should be proceeded to [facility] ve a CT-guided biopsy of the pancreatic mass to have a better understanding of what we are dealing wi th. The patient appears to have peritoneal carcinomatosis of the mesentery, involved by recurrent ca rcinoma. Adrienne Varner MD cc: [id number] TT: 09/10/2016 23:05:22 Confirmation # [id number] Dictation # [id number] mn
[2016-09-11 00:52] LABS: BLOOD UREA NITROGEN 9 mg/dL (7-21); CALCIUM 8.2 mg/dL (8.4-10.5); CARBON DIOXIDE 24 mmol/L (21-33); CHLORIDE 93 mmol/L (98-107); GFR AFRICAN-AMERICAN > 60; GLUCOSE,RANDOM 115 mg/dL (70-110); POTASSIUM 3.8 mmol/L (3.6-5.0); SODIUM 121 mmol/L (132-148)
[2016-09-11 04:15] LABS: ADD MANUAL DIFF? NO
[2016-09-11 04:17] LABS: BASO # 0.05 K/mm3 (0.0-2.0); BASO % 0.7 % (0.0-3.0); EOS # 0.1 (0.0-0.7); EOS % 1.8 % (1.5-5.0); GRAN % 81.6 % (50.0-68.0); HEMATOCRIT 26.4 % (42.0-52.0); LYMPH # 0.6 (1.2-3.4); LYMPH % 8.6 % (22.0-35.0); MEAN CELL VOLUME 80.7 fL (80.0-105.0); MEAN CORPUSCULAR HEMOGLOBIN 29.1 pg (25.0-35.0); MEAN PLATELET VOLUME 7.9 fl (7.0-11.0); MONO # 0.5 (0.1-0.6); MONO % 7.3 % (1.0-6.0); PLATELET COUNT 129 10^3/uL (120.0-450.0); WHITE BLOOD COUNT 6.7 10^3/ul (4.5-11.0)
[2016-09-11 04:31] LABS: ALKALINE PHOSPHATASE 86 U/L (38-133); ALT/SGPT 44 U/L (7-56); AST/SGOT 32 U/L (15-59); BILIRUBIN,TOTAL 0.6 mg/dL (0.2-1.3); BLOOD UREA NITROGEN 9 mg/dL (7-21); CALCIUM 8.2 mg/dL (8.4-10.5); CARBON DIOXIDE 22 mmol/L (21-33); CHLORIDE 94 mmol/L (95-110); GFR AFRICAN-AMERICAN > 60; GLUCOSE,RANDOM 114 mg/dL (70-110); MAGNESIUM 1.9 mg/dL (1.7-2.2); PHOSPHOROUS 2.9 mg/dL (2.5-4.5); POTASSIUM 3.8 mmol/L (3.6-5.0); SODIUM 124 mmol/L (132-148); TOTAL PROTEIN 5.7 g/dL (5.8-8.3)
[2016-09-11 07:45] LABS: BLOOD UREA NITROGEN 9 mg/dL (7-21); CALCIUM 8.3 mg/dL (8.4-10.5); CARBON DIOXIDE 24 mmol/L (21-33); CHLORIDE 94 mmol/L (95-110); GFR AFRICAN-AMERICAN > 60; GLUCOSE,RANDOM 114 mg/dL (70-110); POTASSIUM 3.9 mmol/L (3.6-5.0); SODIUM 124 mmol/L (132-148)
--- NOTE | 2016-09-11 08:39 | PN ---
DATE: 09/11/2016 SUBJECTIVE: The patient is lying in bed. He is awake, alert, but pleasantly confused. He denies an y abdominal pain. He is tolerating a diet. PHYSICAL EXAMINATION: VITAL SIGNS: Reveal that he is afebrile, blood pressure 145/51, heart rate is 78. HEENT: Reveals sclerae to be white, conjunctivae pink. NECK: Supple. CHEST: Reveals decreased breath sounds at the bases. HEART: Reveals a regular rate and rhythm. ABDOMEN: Softly distended. There is ascites. EXTREMITIES: Show no edema. There is no asterixis. LABORATORY DATA: Reveal hemoglobin 9.5, white blood cell count 6.7. Chemistries reveal sodium of 12 4, albumin is 2.9. Sodium is 124 with a potassium of 3.8. Gram stain from ascites fluid is positive for gram-negative rods and leukocytes. IMPRESSION: A 66-year-old male with stage IV pancreatic cancer with liver metastasis, cirrhosis of t he liver, hyponatremia and spontaneous bacterial peritonitis. He also has advanced dementia. RECOMMENDATIONS: 1. Await cytology results of ascites fluid. 2. Continue IV Rocephin for SBP. 3. I will start the patient on Aldactone 50 mg twice a day. Daniel George MD cc: [phone] TT: 09/11/2016 08:38:50 Confirmation # [id number] Dictation # [id number] tn
--- NOTE | 2016-09-11 08:53 | PN ---
DATE: 09/11/2016 SUBJECTIVE: The patient is seen and examined at bedside on the general medical [facility]. No acute event s overnight. He is status post transfer out of the ICU. Per discussion with nursing staff, the carla ent continues to have moments of delirium overnight, but is easily redirectable. This morning, he ap pears awake and alert, and is lying comfortably in bed, appears in good spirits, and offers no compla ints. OBJECTIVE: VITAL SIGNS: Temperature 98.6, pulse 78, blood pressure 145/62, respiratory rate 16, oxygen saturati on 97% on room air. GENERAL: Frail, elderly man, appearing his stated age, lying in bed in no apparent distress. HEENT: Normocephalic, atraumatic. PERRL. EOMI. No scleral icterus. Mild conjunctival pallor is n oted. NECK: No JVD. LUNGS: Decreased breath sounds at the bases. CARDIOVASCULAR: Regular rate and rhythm. Normal S1 and S2. ABDOMEN: Normoactive bowel sounds. Soft, nondistended. No rigidity, no tympany. EXTREMITIES: No edema. NEUROLOGIC: Awake and alert, oriented to person and place, able to follow some simple commands, movi ng all extremities. LABORATORY DATA: WBC 6.7 with 82% neutrophils, hemoglobin 9.5, hematocrit 26, platelets 129. Sodium 124, potassium 3.8, chloride 94, bicarb 22, BUN 9, creatinine 0.7, glucose 114. Blood cultures with no growth to date. Urine cultures with no growth to date. Peritoneal fluid with no growth to date. ASSESSMENT: The patient is a 66-year-old man with multiple medical comorbidities who presented to [facility] Emergency Department for evaluation of a several-day history of malaise, recurrent falls, apathy, decreased p.o. intake, altered mental status, and abdominal distention and who was admitted to the [facility] for management of profound symptomatic hyponatremia, new onset massive ascites, and subsequently no alex to have a newly diagnosed pancreatic mass with possible liver mets, who is now status post transf er to ICU with continued management for hyponatremia, new onset ascites, and continued workup of panc reatic mass. PLAN: 1. Altered mental status, improving. Etiology is likely multifactorial and secondary to toxic metab olic encephalopathy with most likely culprit being symptomatic hyponatremia. Input from Dr. Ernesto juarez neurology noted and appreciated, an no acute neurological intervention at present. 2. Symptomatic hyponatremia, improving. Etiology is likely multifactorial including depletional hy ponatremia in the setting of poor p.o. intake, as well as possibility of SIADH in the setting of unde rlying malignancy. Input from Dr. Yu noted and appreciated, and the patient has been placed on hypertonic saline. Continue to monitor serial chemistries. 3. Ascites, new onset. The patient is status post therapeutic and diagnostic abdominal paracentesis with removal of 6 liters of vamshi fluid. Cytology is negative to date. Input from Dr. George also a nd greatly appreciated. 4. Pancreatic mass. Input from Dr. Vu and Dr. Varner noted and appreciated, and agree tootie t if abdominal paracentesis cytology report is negative, we may need to pursue biopsy of pancreatic m ass for tissue diagnosis. We will discuss this with Dr. Francisco Matos of interventional radiology. 5. Dilated cardiomyopathy. The patient remains hemodynamically stable. Input from Dr. Garza noted a nd appreciated. 6. Urinary retention. Input from Dr. Mathews noted. The patient to remain with Gu in place. Roxana nue to monitor strict I's and O's. 7. Chronic normal-pressure hydrocephalus. Input from Dr. Orozco of neurology noted, and no new panfilo mmendations. CT on this admission demonstrates stability in size of ventricles as compared to 1 year ago. 8. CAD, status post PCI with stent placement. The patient remains chest-pain free. Continue with p resent management. 9. Microcytic anemia. H and H remain stable. The patient has been started on iron supplementation. We will continue to monitor H and H daily. 10. Alzheimer's dementia. 11. Prophylaxis. Continue Protonix for gastrointestinal prophylaxis and heparin for DVT prophylaxis . CODE STATUS: Full code. Tom Powell MD cc: [phone] TT: 09/11/2016 08:52:12 Confirmation # [id number] Dictation # [id number] jamari
[2016-09-11] MEDS: POLYETHYLENE GLYCOL 3350 17 GM/Dose PACKET PO SCH (09:05)
[2016-09-11] MEDS: Iron Complex Polysacch 150mg Cap PO SCH (09:06)
[2016-09-11] MEDS: cefTRIAXone 2 GM IN NS 2 GM/100 ML BAG IVPB SCH (09:07)
[2016-09-11] MEDS: Sodium Chloride 3% 500 ML IV SCH (09:08)
[2016-09-11 11:25] LABS: CORTISOL AM 11.1 ug/dL (4.46-22.7)
--- NOTE | 2016-09-11 12:41 | PN ---
DATE: 09/11/2016 SUBJECTIVE: A 66-year-old male who came to ICU, transferred to regular floor with hyponatremia and a ltered mental status. The patient is doing okay, not in distress. No events and the patient is doin g okay. PLAN: Continue present management. We will follow up. Lauro Orozco MD cc: [id number] TT: 09/11/2016 12:40:22 Confirmation # [id number] Dictation # [id number] tn
[2016-09-11 13:17] LABS: BLOOD UREA NITROGEN 9 mg/dL (7-21); CALCIUM 8.3 mg/dL (8.4-10.5); CARBON DIOXIDE 25 mmol/L (21-33); CHLORIDE 93 mmol/L (98-107); GFR AFRICAN-AMERICAN > 60; GLUCOSE,RANDOM 111 mg/dL (70-110); POTASSIUM 4.1 mmol/L (3.6-5.0); SODIUM 123 mmol/L (132-148)
--- NOTE | 2016-09-11 14:09 | PN ---
DATE: 09/11/2016 The patient is asymptomatic. PHYSICAL EXAMINATION: VITAL SIGNS: Blood pressure is 159/82, the heart rate is in the 80s. NECK: Negative JVD. LUNGS: Without rales. HEART: Reveals S1, S2. EXTREMITIES: Without edema. LABORATORY DATA: Hemoglobin is 9.5. Sodium is up to 123. IMPRESSION: 1. Altered mental status secondary to marked metabolic abnormalities. 2. History of baseline dementia. 3. Stable angina. 4. Coronary artery disease. 5. Pancreatic mass with possible liver metastasis. 6. Dementia. PLAN: Given these findings, the patient is awaiting cytology report with potential for possible live r or pancreatic biopsy. The patient's currently cardiac status is stable. Francisco Garza MD cc: [phone] TT: 09/11/2016 14:09:24 Confirmation # [id number] Dictation # [id number] tn
--- NOTE | 2016-09-11 14:53 | CP.PCM.CON ---
History of Present Illness - History of Present Illness History of Present Illness: Palliative consult requested by Dr Jam Powell Reason: Goals of care 66 year old male admitted with who presented with generalized weakness, gait instability, with loss abdominal distention and constipation.CT scan showed a large mass in the body of the pancreas as well as hypodense areas in the liver suggestive of metastatic disease PMHx:dementia, hydrocephalus, CAD, dilated cardiomyopathy, alcoholism, s/p ventral hernia repair. Social History: Former smoker, alcohol abuse. Single, lives whit his daughter, Gabi Jaquez. Advance Care Planning: the patient does not have an Advanced Directive. His daughter Gabi Jaquez is POA. Review of systems: Unobtainable due to dementia, confusion. Past Patient History - Infectious Disease Hx of Infectious Diseases: None - Tetanus Immunizations Tetanus Immunization: Unknown - Past Social History Smoking Status: Former Smoker - CARDIAC Hx Cardiac Disorders: Yes Hx Congestive Heart Failure: Yes - PULMONARY Hx Respiratory Disorders: No - NEUROLOGICAL Hx Alzheimer's Disease: Yes Hx Dementia: Yes - HEENT Hx HEENT Problems: Yes Hx Deafness: Yes - RENAL Hx Chronic Kidney Disease: No - ENDOCRINE/METABOLIC Hx Endocrine Disorders: No - HEMATOLOGICAL/ONCOLOGICAL Hx Blood Disorders: No - INTEGUMENTARY Hx Dermatological Problems: No - MUSCULOSKELETAL/RHEUMATOLOGICAL Hx Musculoskeletal Disorders: Yes Hx Back Pain: Yes Hx Falls: Yes - GASTROINTESTINAL Hx Gastrointestinal Disorders: No - GENITOURINARY/GYNECOLOGICAL Hx Genitourinary Disorders: No - PSYCHIATRIC Hx Anxiety: Yes Hx Post Traumatic Stress Disorder: Yes Hx Substance Use: No - SURGICAL HISTORY Hx Coronary Stent: Yes - ANESTHESIA Hx Anesthesia: Yes Hx Anesthesia Reactions: No Hx Malignant Hyperthermia: No Meds Allergies/Adverse Reactions: Allergies Allergy/AdvReac Type Severity Reaction Status Date / Time No Known Allergies Allergy Verified 08/17/16 12:03 - Medications Medications: Current Medications Acetaminophen (Tylenol 325mg Tab) 650 mg PO Q6H PRN PRN Reason: Fever >100.4 F Last Admin: 09/11/16 12:17 Dose: 650 mg Docusate Sodium (Colace) 100 mg PO BID [facility] Last Admin: 09/11/16 09:06 Dose: 100 mg Heparin Sodium (Porcine) (Heparin) 5,000 units SC Q12 [facility] PRN Reason: Protocol Last Admin: 09/11/16 09:06 Dose: 5,000 units Ceftriaxone Sodium (Rocephin 2 Gm Ivpb) 2 gm in 100 mls @ 100 mls/hr IVPB DAILY [facility] PRN Reason: Protocol Last Admin: 09/11/16 09:07 Dose: 100 mls/hr Sodium Chloride (Hypertonic Saline 3%) 500 mls @ 30 mls/hr IV .[id number] [facility] Last Admin: 09/11/16 09:08 Dose: 30 mls/hr Morphine Sulfate (Morphine) 2 mg IVP Q4H PRN PRN Reason: Pain, severe (8-10) Last Admin: 09/10/16 21:45 Dose: 2 mg Ondansetron HCl (Zofran Inj) 4 mg IVP Q8H PRN PRN Reason: Nausea/Vomiting Pantoprazole Sodium (Protonix Inj) 40 mg IVP DAILY [facility] Last Admin: 09/11/16 09:04 Dose: 40 mg Polyethylene Glycol (Miralax) 17 gm PO DAILY [facility] Last Admin: 09/11/16 09:05 Dose: 17 gm Polysaccharide Iron Complex (Ferrex-150) 150 mg PO DAILY [facility] Last Admin: 09/11/16 09:06 Dose: 150 mg Spironolactone (Aldactone) 50 mg PO BID [facility] Last Admin: 09/11/16 09:06 Dose: 50 mg Physical Exam - Constitutional Appears: Cachectic, Chronically Ill - Head Exam Head Exam: NORMAL INSPECTION - Eye Exam Eye Exam: PERRL, Scleral icterus - ENT Exam ENT Exam: Mucous Membranes Moist, Normal Oropharynx - Neck Exam Neck exam: Positive for: Normal Inspection - Respiratory Exam Respiratory Exam: Decreased Breath Sounds, NORMAL BREATHING PATTERN - Cardiovascular Exam Cardiovascular Exam: REGULAR RHYTHM, +S1, +S2 - GI/Abdominal Exam GI & Abdominal Exam: Diminished Bowel Sounds, Distended, Soft - Back Exam Back exam: NORMAL INSPECTION - Skin Skin Exam: Dry, Warm Additional comments: slightly juandiced - Additional Findings Additional findings: Palliative performance scale rating 30% Results - Vital Signs Recent Vital Signs: Last Vital Signs Temp 97.8 F 09/11/16 06:00 Pulse 83 09/11/16 06:00 Resp 18 09/11/16 06:00 BP 159/82 H 09/11/16 06:00 Pulse Ox 97 09/11/16 06:00 - Labs Result Diagrams: 09/11/16 04:10 05/03/17 13:00 Labs: Laboratory Results - last 24 hr 09/10/16 09/10/16 09/11/16 20:05 20:05 00:20 WBC RBC Hgb Hct MCV MCH MCHC RDW Plt Count MPV Gran % Lymph % (Auto) [place] % (Auto) Eos % (Auto) Baso % (Auto) Gran # Lymph # [place] # Eos # Baso # Sodium 121 L 121 L Potassium 3.9 3.8 Chloride 92 L 93 L Carbon Dioxide 22 24 Anion Gap 11 8 L BUN 10 9 Creatinine 0.7 0.7 Est GFR ( Amer) > 60 > 60 Est GFR (Non-Af Amer) > 60 > 60 Random Glucose 124 H 115 H Calcium 8.3 L 8.2 L Phosphorus Magnesium Total Bilirubin AST ALT Alkaline Phosphatase Total Protein Albumin Globulin Albumin/Globulin Ratio Free T4 1.53 Thyroxine (T4) 9.0 Total T3 0.52 L TSH 3rd Generation 3.48 Cortisol AM Sample 09/11/16 09/11/16 09/11/16 04:10 04:10 07:20 WBC 6.7 RBC 3.27 L Hgb 9.5 L Hct 26.4 L MCV 80.7 MCH 29.1 MCHC 36.0 RDW 13.0 Plt Count 129 MPV 7.9 Gran % 81.6 H Lymph % (Auto) 8.6 L [place] % (Auto) 7.3 H Eos % (Auto) 1.8 Baso % (Auto) 0.7 Gran # 5.50 Lymph # 0.6 L [place] # 0.5 Eos # 0.1 Baso # 0.05 Sodium 124 L 124 L Potassium 3.8 3.9 Chloride 94 L 94 L Carbon Dioxide 22 24 Anion Gap 12 10 BUN 9 9 Creatinine 0.7 0.7 Est GFR ( Amer) > 60 > 60 Est GFR (Non-Af Amer) > 60 > 60 Random Glucose 114 H 114 H Calcium 8.2 L 8.3 L Phosphorus 2.9 Magnesium 1.9 Total Bilirubin 0.6 AST 32 ALT 44 Alkaline Phosphatase 86 Total Protein 5.7 L Albumin 2.9 L Globulin 2.9 Albumin/Globulin Ratio 1.0 L Free T4 Thyroxine (T4) Total T3 TSH 3rd Generation Cortisol AM Sample 11.1 09/11/16 13:00 WBC RBC Hgb Hct MCV MCH MCHC RDW Plt Count MPV Gran % Lymph % (Auto) [place] % (Auto) Eos % (Auto) Baso % (Auto) Gran # Lymph # [place] # Eos # Baso # Sodium 123 L Potassium 4.1 Chloride 93 L Carbon Dioxide 25 Anion Gap 9 L BUN 9 Creatinine 0.7 Est GFR ( Amer) > 60 Est GFR (Non-Af Amer) > 60 Random Glucose 111 H Calcium 8.3 L Phosphorus Magnesium Total Bilirubin AST ALT Alkaline Phosphatase Total Protein Albumin Globulin Albumin/Globulin Ratio Free T4 Thyroxine (T4) Total T3 TSH 3rd Generation Cortisol AM Sample Assessment & Plan - Assessment and Plan (Free Text) Assessment: 66 year old male admitted with weakness, decrease appetite, ascites, flank pain , constipation. CT scan showed mass in the body of the pancreas and multiple nodules in the liver which are suspicious for metastatic disease. 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 The patient is confused, bed bound. His appetite is poor. He offer no complaints. I spoke at length with patients daughter, Jessica Jaquez. She understands that her father likely has metastatic pancreatic carcinoma. She feels that her father would be to weak to withstand chemotherapy. She expressed that she would like to take him home and keep him as comfortable as possible for the remaining time he has left. We discussed option for hospice care at home. Hospice services explained in detail Questions answered. Daughter will speak with attending physician about hospice care. Daughter also requesting to meet with a service liaison representative. Time spent in discussion with patients daughter regarding goals of care and hospice services 40 minutes Plan: Hospice referral
[2016-09-11 16:23] LABS: BLOOD UREA NITROGEN 10 mg/dL (7-21); CALCIUM 8.1 mg/dL (8.4-10.5); CARBON DIOXIDE 23 mmol/L (21-33); CHLORIDE 94 mmol/L (98-107); GFR AFRICAN-AMERICAN > 60; GLUCOSE,RANDOM 116 mg/dL (70-110); SODIUM 123 mmol/L (132-148)
[2016-09-11] MEDS: Morphine 2 mg/ml ISec IVP PRN (17:25)
[2016-09-11] MEDS ORDERED: Morphine 2 mg/ml ISec IVP PRN (18:39)
[2016-09-11 20:37] LABS: BLOOD UREA NITROGEN 9 mg/dL (7-21); CALCIUM 8.2 mg/dL (8.4-10.5); CARBON DIOXIDE 24 mmol/L (21-33); CHLORIDE 93 mmol/L (98-107); GFR AFRICAN-AMERICAN > 60; GLUCOSE,RANDOM 135 mg/dL (70-110); SODIUM 122 mmol/L (132-148)
--- NOTE | 2016-09-11 20:37 | CP.PCM.PN ---
Subjective - Date & Time of Evaluation Date of Evaluation: 09/11/16 Time of Evaluation: 20:37 - Subjective Subjective: Patient was seen because it was requested to renew restraint order. He has no complaints. Pertinent medical record was reviewed. This 66 year old male was admitted for frequent falls, progressive worsening of altered mental status. Has PMH of CAD, PTCA, Chronic hydrocephalus, Alzheimer's dementia, dilated cardiomyopathy, PTSD,anxiety. Objective - Vital Signs/Intake and Output Vital Signs (last 24 hours): Temp Pulse Resp BP Pulse Ox 98.5 F 42 L 20 137/69 96 09/11/16 16:00 09/11/16 16:00 09/11/16 16:00 09/11/16 16:00 09/11/16 16:00 Intake and Output: 09/11/16 09/12/16 18:59 06:59 Intake Total 720 Output Total 400 Balance 320 - Medications Medications: Current Medications Acetaminophen (Tylenol 325mg Tab) 650 mg PO Q6H PRN PRN Reason: Fever >100.4 F Last Admin: 09/11/16 12:17 Dose: 650 mg Docusate Sodium (Colace) 100 mg PO BID [facility] Last Admin: 09/11/16 17:25 Dose: 100 mg Heparin Sodium (Porcine) (Heparin) 5,000 units SC Q12 [facility] PRN Reason: Protocol Last Admin: 09/11/16 09:06 Dose: 5,000 units Ceftriaxone Sodium (Rocephin 2 Gm Ivpb) 2 gm in 100 mls @ 100 mls/hr IVPB DAILY [facility] PRN Reason: Protocol Last Admin: 09/11/16 09:07 Dose: 100 mls/hr Sodium Chloride (Hypertonic Saline 3%) 500 mls @ 30 mls/hr IV .[id number] [facility] Last Admin: 09/11/16 09:08 Dose: 30 mls/hr Morphine Sulfate (Morphine) 5 mg IVP Q3H PRN PRN Reason: Pain, moderate (4-7) Ondansetron HCl (Zofran Inj) 4 mg IVP Q8H PRN PRN Reason: Nausea/Vomiting Pantoprazole Sodium (Protonix Inj) 40 mg IVP DAILY [facility] Last Admin: 09/11/16 09:04 Dose: 40 mg Polyethylene Glycol (Miralax) 17 gm PO DAILY [facility] Last Admin: 09/11/16 09:05 Dose: 17 gm Polysaccharide Iron Complex (Ferrex-150) 150 mg PO DAILY [facility] Last Admin: 09/11/16 09:06 Dose: 150 mg Spironolactone (Aldactone) 50 mg PO BID [facility] Last Admin: 09/11/16 17:25 Dose: 50 mg Zolpidem Tartrate (Ambien) 5 mg PO HS PRN; Protocol PRN Reason: Insomnia - Labs Labs: 09/11/16 04:10 09/11/16 15:55 PT 11.4 Seconds (9.9-11.8) 09/10/16 12:30 INR 1.06 (0.93-1.08) 09/10/16 12:30 APTT 29.7 Seconds (23.7-30.8) 09/07/16 10:37 - Constitutional Appears: Well, No Acute Distress - Head Exam Head Exam: ATRAUMATIC, NORMAL INSPECTION, NORMOCEPHALIC - Eye Exam Eye Exam: Normal appearance - ENT Exam ENT Exam: Normal External Ear Exam - Neck Exam Neck Exam: Normal Inspection - Respiratory Exam Respiratory Exam: NORMAL BREATHING PATTERN - Cardiovascular Exam Cardiovascular Exam: absent: JVD - GI/Abdominal Exam GI & Abdominal Exam: absent: Distended - Rectal Exam Rectal Exam: Deferred - Extremities Exam Extremities Exam: Normal Inspection - Back Exam Back Exam: NORMAL INSPECTION - Neurological Exam Neurological Exam: Altered - Psychiatric Exam Psychiatric exam: Agitated Assessment and Plan - Assessment and Plan (Free Text) Assessment: A/P:Intermittent agitation. CAD. S/P PTCA. Dilated cardiomyopathy. Dementia. Restraint order was renewed. Continue present management.
--- NOTE | 2016-09-11 21:27 | PN ---
DATE: 09/11/2016 This is [facility] visit on the medical floor. For Dr. Varner. SUBJECTIVE: The patient is a 66-year-old male seen lying awake in bed with daughter and son at the [facility], with the patient reporting his pain continues to the mid right upper quadrant radiating to th e back suspected to have pancreatic cancer with metastases. Now he is status post visit with hospice nurse with the family requesting comfort measures to be given. We will also adjust his pain medicati ons. He is status post paracentesis as per Dr. Francisco Matos with a significant amount of fluid approx imately 5 or 6 liters taken off. The patient is otherwise in no acute distress. The daughter reporting that he did eat earlier today. He is for a CT-guided biopsy in the morning. After a phone conversation with Dr. Bernardo Brito, co nsider celiac plexus block if it is indicated. We will also give Ambien at bedtime and adjust his pa in medications with the patient to be eventually treated possibly for comfort measures as per workup. OBJECTIVE: PHYSICAL EXAMINATION: VITAL SIGNS: Temperature 98.5, pulse 90, respirations 20, blood pressure 137/69, pulse ox 96%. HEENT: Unremarkable. NECK: Supple. HEART: Decreased breath sounds at the bases. ABDOMEN: Soft, less distended. Minimal tenderness to gentle palpation to mid epigastrium with radia tion to the back. EXTREMITIES: Faint +1 edema. NEUROLOGIC: Somnolent but arousable. SKIN: Warm, dry and clear. LABORATORY DATA: The patient's labs were done. White blood cell count 6.7, hemoglobin 9.5, hematocr it 26.4, platelet count of 129,000. INR yesterday was 1.06. His chem panel shows sodium of 122, on admission it was 109 with a chloride of 93, calcium of 8.2. As previously commented on, his tumor ma rker shows a CA 19-9 of greater than 1000 with a CEA of 358. ASSESSMENT: Severe hyponatremia, probable pancreatic cancer with mets, intractable pain of cancer, mental status change secondary to above, ascites status post paracentesis, cardiomyopathy, history of hydrocephalus, atherosclerotic cardiovascular disease, syndrome of inappropriate antidiuretic horm one secretion?. PLAN: Our plan for this patient will be to adjust his pain medications after conversation with Dr. Juan escoto and Dr. Varner. We will ask for Dr. Brito for evaluation for celiac plexus block as indicate d after a CT-guided biopsy, would be attempted by Dr. Francisco Matos, with his electrolytes to be monito red and corrected as per Dr. Yu with comfort measures to be implemented as per family and patien t's request with a tissue diagnosis hopefully to be obtained in the near future. We will give Ambien for his insomnia with the prognosis unfortunately poor for this patient. Silviano Vu MD cc: [phone] TT: 09/11/2016 21:26:49 Confirmation # [id number] Dictation # [id number] jamari
[2016-09-12 01:03] LABS: BLOOD UREA NITROGEN 9 mg/dL (7-21); CALCIUM 8.2 mg/dL (8.4-10.5); CARBON DIOXIDE 23 mmol/L (21-33); CHLORIDE 94 mmol/L (98-107); GFR AFRICAN-AMERICAN > 60; GLUCOSE,RANDOM 116 mg/dL (70-110); POTASSIUM 4.1 mmol/L (3.6-5.0); SODIUM 123 mmol/L (132-148)
[2016-09-12] MEDS: Sodium Chloride 3% 500 ML IV SCH (03:51)
[2016-09-12 04:45] LABS: ADD MANUAL DIFF? NO
[2016-09-12 04:48] LABS: BASO # 0.03 K/mm3 (0.0-2.0); BASO % 0.5 % (0.0-3.0); EOS # 0.1 (0.0-0.7); EOS % 2.2 % (1.5-5.0); GRAN # 4.71 (1.4-6.5); GRAN % 77.9 % (50.0-68.0); HEMATOCRIT 25.9 % (42.0-52.0); LYMPH # 0.6 (1.2-3.4); LYMPH % 9.6 % (22.0-35.0); MEAN CELL VOLUME 81.7 fL (80.0-105.0); MEAN CORPUSCULAR HGB CONC 35.5 g/dl (31.0-37.0); MEAN PLATELET VOLUME 8.1 fl (7.0-11.0); MONO # 0.6 (0.1-0.6); MONO % 9.8 % (1.0-6.0); PLATELET COUNT 130 10^3/uL (120.0-450.0); RED CELL DISTRIBUTION WIDTH 13.2 % (11.5-14.5)
[2016-09-12 05:00] LABS: GFR AFRICAN-AMERICAN > 60
[2016-09-12 05:28] LABS: ALKALINE PHOSPHATASE 87 U/L (38-133); ALT/SGPT 42 U/L (7-56); AST/SGOT 33 U/L (15-59); BILIRUBIN,TOTAL 0.5 mg/dL (0.2-1.3); BLOOD UREA NITROGEN 8 mg/dL (7-21); CALCIUM 8.3 mg/dL (8.4-10.5); CARBON DIOXIDE 24 mmol/L (21-33); CHLORIDE 94 mmol/L (95-110); GLUCOSE,RANDOM 119 mg/dL (70-110); MAGNESIUM 1.8 mg/dL (1.7-2.2); PHOSPHOROUS 3.4 mg/dL (2.5-4.5); POTASSIUM 4.3 mmol/L (3.6-5.0); SODIUM 123 mmol/L (132-148); TOTAL PROTEIN 5.6 g/dL (5.8-8.3)
[2016-09-12 05:39] LABS: ALB/GLOB RATIO 0.9 (1.1-1.8)
--- NOTE | 2016-09-12 08:02 | PN ---
DATE: 09/11/2016 SUBJECTIVE: The patient is seen lying in bed. He is awake. He is alert. He denies any abdominal p ain. He denies any back pain. He denies any shortness of breath. PHYSICAL EXAMINATION: GENERAL: Elderly male lying in bed. VITAL SIGNS: Blood pressure 137/69, heart rate 90, respiratory rate 20, temperature 98.5. HEENT: Normocephalic, atraumatic. NECK: Supple. No JVD. LUNGS: Bilateral equal air entry, no rales. CARDIAC: S1, S2, regular rate and rhythm, no murmur, . ABDOMEN: Obese, distended, soft, positive fluid thrill, bowel sounds present. EXTREMITIES: 1+ pitting edema of the lower extremities. INTAKE AND OUTPUT: 1975/700. LABORATORY DATA: WBC 6.7, hemoglobin 9.5, hematocrit 26, platelets 129. Sodium 122, potassium 4.0, chloride 93, CO2 24, BUN 9, creatinine 0.7, glucose 135, calcium 8.2, phosphorus 2.9, magnesium 1.9, albumin 2.9, corrected calcium is 8.9, a.m. cortisol is 11, , cloudy, WBC 521. status. P eritoneal fluid, Gram stain and culture no growth so far. CURRENT MEDICATIONS: Aldactone 50 b.i.d., Ambien, Colace, iron, heparin, 3% saline at 30 mL per hour , MiraLax, morphine, Protonix, Rocephin, Tylenol, Zofran. ASSESSMENT AND PLAN: 1. New onset cirrhosis of the liver/ /liver metastasis, ascites. 2. Severe hyponatremia. 3. Syndrome of inappropriate anti-diuretic hormone. 4. Severe anemia. 5. No iron stores. 6. Coronary artery disease, percutaneous transluminal coronary angioplasty and stent, mg daily. 7. saline. 8. biopsy. 9. 50 b.i.d. 10. Monitor sodium closely. 11. Monitor urine output closely. Leila Lane MD cc: [phone] TT: 09/11/2016 23:03:32 Confirmation # [id number] Dictation # [id number] mn
[2016-09-12 08:06] LABS: BLOOD UREA NITROGEN 8 mg/dL (7-21); CALCIUM 8.1 mg/dL (8.4-10.5); CARBON DIOXIDE 23 mmol/L (21-33); CHLORIDE 95 mmol/L (98-107); GFR AFRICAN-AMERICAN > 60; GLUCOSE,RANDOM 117 mg/dL (70-110); POTASSIUM 4.2 mmol/L (3.6-5.0); SODIUM 124 mmol/L (132-148)
[2016-09-12] MEDS: Iron Complex Polysacch 150mg Cap PO SCH (09:09)
[2016-09-12] MEDS: POLYETHYLENE GLYCOL 3350 17 GM/Dose PACKET PO SCH (09:09)
[2016-09-12] MEDS: cefTRIAXone 2 GM IN NS 2 GM/100 ML BAG IVPB SCH (09:10)
--- NOTE | 2016-09-12 09:16 | PN ---
DATE: 09/12/2016 SUBJECTIVE: The patient seen and examined at bedside on the general medical [facility]. No acute events o vernight. He remains afebrile and hemodynamically stable. Yesterday afternoon, I had an extensive d iscussion with the patient's daughter regarding his overall status and prognosis. She was informed t hat the patient likely has metastatic cancer, but as of now, the origin is unclear. We discussed his prognosis and treatment options and the daughter expressed her wishes to pursue hospice care. Howev er, she would like to proceed with CT-guided biopsy so as to establish a tissue diagnosis. To that e nd, she was told that we will facilitate this request and proceed with the IR-guided biopsy. The pat ient himself this morning, otherwise states he feels okay, but tired and denies any specific complain ts. OBJECTIVE: VITAL SIGNS: Temperature 98.6, pulse 90, blood pressure 133/71, respiratory rate 18, oxygen saturati on 96% on room air. GENERAL: Frail, elderly man, appearing his stated age, lying in bed, in no apparent distress. HEENT: Normocephalic, atraumatic. PERRL, EOMI. No scleral icterus. Mild conjunctival pallor is no alex. NECK: No JVD. LUNGS: Decreased breath sounds at bases. CARDIOVASCULAR: Regular rate and rhythm, normal S1 and S2. ABDOMEN: Normoactive bowel sounds. Soft, minimally distended. No rigidity, no tympany. EXTREMITIES: No edema. NEUROLOGIC: Awake and alert, oriented to person and place, able to follow simple commands, moving al l extremities. LABORATORY DATA: WBC 6 with 78% neutrophils, hemoglobin 9, hematocrit 26, platelets 130. Sodium 123 , potassium 4.3, chloride 94, bicarbonate 24, BUN 8, creatinine 0.7, glucose 119. ASSESSMENT: The patient is a 66-year-old man with multiple medical comorbidities who presented to [facility] (formerly [facility]) for evaluation of a several-day history of malaise, recurrent falls, apathy, dec reased p.o. intake, altered mental status and abdominal distention and who was initially admitted to the ICU for management of profound symptomatic hyponatremia, new onset massive ascites and subsequent ly noted to have a newly diagnosed pancreatic mass with possible liver mets, who is now status post t ransfer out of the ICU and with ongoing workup for his pancreatic mass. PLAN: 1. Altered mental status, etiology likely multifactorial and secondary to toxic metabolic encephalop athy secondary to symptomatic hyponatremia versus underlying Alzheimer dementia. Input from Dr. Gold or of neurology noted and appreciated and no further neurological intervention indicated. 2. Symptomatic hyponatremia, improving. Etiology likely multifactorial including depletional hypona tremia in the setting of poor p.o. intake versus possible syndrome of inappropriate antidiuretic horm one in the setting of underlying malignancy. Input from Dr. Yu and Dr. Lane noted and apprecia alex. Hypertonic saline has been discontinued and patient has been started on tolvaptan. Continue to monitor serial chemistries. 3. Ascites, new onset. The patient is status post therapeutic and diagnostic abdominal paracentesis with removal of 6 liters of vamshi fluid with cytology reportedly negative to date. Input from Dr. Luisa arias noted and greatly appreciated. 4. Pancreatic mass. Input from Dr. Vu and Dr. Varner noted and appreciated. I have spoke n with Dr. Francisco Matos and we will attempt to proceed with CT-guided biopsy of either the omental lym ph nodes or the hepatic mass (whichever is more feasible) so as to obtain a tissue diagnosis. 5. Dilated cardiomyopathy. The patient remains hemodynamically stable. Input from Dr. Garza noted a nd appreciated. 6. Urinary retention. The patient remains with Gu catheter in place and as per Dr. Mathews's note, should maintain Gu catheter in place for at least 2 weeks. 7. Chronic normal pressure hydrocephalus. Input from Dr. Orozco of neurology noted and no new recom mendations given stability on neuro imaging as compared to 1 year prior. 8. Coronary artery disease, status post percutaneous coronary intervention with stent placement. Th e patient remains hemodynamically stable and chest pain free. Continue with current management. 9. Microcytic anemia. H and H remain stable. The patient has been started on iron supplementation. Continue to monitor CBC daily. 10. Alzheimer dementia. 11. Prophylaxis. Continue with Protonix for gastrointestinal prophylaxis and heparin for deep venou s thrombosis prophylaxis. 12. Disposition. As per my discussion with the daughter yesterday, arrangements are being made with the help of Suki Hyde and Samantha, the lining caser, to facilitate home hospice as per family requ est. Will also need to discuss code status with the family. CODE STATUS: Full code. Tom Powell MD cc: [id number] TT: 09/12/2016 09:15:59 Confirmation # [id number] Dictation # [id number] en
[2016-09-12] MEDS: Tolvaptan 15 MG TAB PO SCH (09:26)
--- NOTE | 2016-09-12 09:37 | PN ---
DATE: 09/12/2016 SUBJECTIVE: The patient is sitting in bed, eating breakfast with the assistance of an aide. He is a wake, but pleasantly confused. He denies any abdominal pain or shortness of breath. PHYSICAL EXAMINATION: VITAL SIGNS: Reveal temperature of 98.6, blood pressure 133/71, heart rate of 90. HEENT: Reveals sclerae to be white, conjunctivae pale. NECK: Supple. CHEST: Revealed decreased breath sounds. HEART: Reveals a regular rate and rhythm. ABDOMEN: Soft, protuberant with ascites. Nontender. EXTREMITIES: Show no edema. LABORATORY DATA: Reveal hemoglobin 9.2, white blood cell count of 6. Sodium is up to 124, blood sug ar is 117. Serum calcium is 8.1. IMPRESSION: A 66-year-old male with a large mass in the body and neck of the pancreas with liver met astasis, elevated CEA, elevated CA 19.9 C, cirrhosis, ascites, SVT, advanced dementia with a history of hydrocephalus. RECOMMENDATIONS: 1. Await ascites fluid cytology. 2. Continue Aldactone 50 mg twice a day. 3. Consider palliative care with hospice. Daniel George MD cc: [id number] TT: 09/12/2016 09:36:42 Confirmation # [id number] Dictation # [id number] tn
--- NOTE | 2016-09-12 10:35 | PN ---
DATE: 09/12/2016 The patient is complaining of back pain. No shortness of breath noted. PHYSICAL EXAMINATION: VITAL SIGNS: Blood pressure is 149/83, the heart rate is in the 90s. NECK: Negative JVD. LUNGS: Without rales. HEART: Revealed S1, S2. EXTREMITIES: Without edema. Hemoglobin is 9.2. Chemistries: The sodium is 124. IMPRESSION: 1. Pancreatic mass with possible metastases. 2. Improvement of hyponatremia. 3. Stable angina. 4. Coronary artery disease. 5. Dementia. Given these findings, the patient is hemodynamically stable. His left ventricular function is unchan ged. The patient's family is under discussion for possible palliative care and hospice. Francisco Garza MD cc: [phone] TT: 09/12/2016 10:35:07 Confirmation # [id number] Dictation # [id number] en
[2016-09-12 12:36] LABS: BLOOD UREA NITROGEN 8 mg/dL (7-21); CALCIUM 8.4 mg/dL (8.4-10.5); CARBON DIOXIDE 24 mmol/L (21-33); CHLORIDE 96 mmol/L (98-107); GFR AFRICAN-AMERICAN > 60; GLUCOSE,RANDOM 126 mg/dL (70-110); POTASSIUM 4.2 mmol/L (3.6-5.0); SODIUM 125 mmol/L (132-148)
--- NOTE | 2016-09-12 13:35 | PN ---
DATE: 09/12/2016 The patient is seen in his room at [facility]. His family is present. PHYSICAL EXAMINATION: GENERAL: The patient is awake, but slightly obtunded. VITAL SIGNS: Temp of 97.6, pulse 94, BP 149/83, respirations 20. GENITOURINARY: Phallus is normal. There is a Gu catheter in place, which is draining clear-color ed urine. Scrotum is normal. Testes nontender, no masses. IMPRESSION AND PLAN: A patient with urinary retention and likely pancreatic carcinoma. The patient is going for a biopsy for pathologic diagnosis later today. Urologically, given the medical conditio n and the fact that patient had over a liter and a half in his bladder, I doubt that he will be able to void spontaneously. The patient is currently debilitated and weak. He is unable to stand and wal k. The plan, after discussion with the family, is to take him home. The patient should remain with an indwelling Gu catheter, which should be changed monthly, either by VNS or patient can be nii t to my office for Gu change. Nothing acute to add urologically at this time. Steven Mathews MD cc: [phone] TT: 09/12/2016 13:35:01 Confirmation # [id number] Dictation # [id number] en
--- NOTE | 2016-09-12 14:48 | PN ---
DATE: 09/12/2016 SUBJECTIVE: The patient is seen lying in bed. He is awake. He is alert. He is comfortable. PHYSICAL EXAMINATION: VITAL SIGNS: Blood pressure 149/83, heart rate 94, respiratory rate 20, temperature 97.6. HEENT: Normocephalic, atraumatic. NECK: Supple. No JVD. LUNGS: Bilateral equal air entry, no rales. CARDIAC: S1, S2, regular rate and rhythm, no murmur, no rub. ABDOMEN: Obese, distended, soft, positive fluid thrill, bowel sounds present. EXTREMITIES: Trace lower extremity edema. INTAKE AND OUTPUT: 1640/900. LABORATORY DATA: WBC 6, hemoglobin 9, hematocrit 26, platelets 130, MCV 81. Sodium 125, potassium 4 .2, chloride 96, CO2 of 24, BUN 8, creatinine 0.8, glucose 126, calcium 8.4. CURRENT MEDICATIONS: Aldactone 50 b.i.d., Ambien, Colace, iron, heparin, MiraLax, morphine, Protonix , ceftriaxone, tolvaptan 15 mg given this morning, Tylenol, Zofran. ASSESSMENT: 1. Symptomatic hyponatremia, depletional hyponatremia, corrected now with syndrome of inappropriate secretion of antidiuretic hormone in the setting of pancreatic mass. 2. Severe anemia, low iron stores. 3. Pancreatic mass, for biopsy. 4. New onset ascites, status post therapeutic tap, diagnostic tap, cytology negative for malignancy. 5. Dilated cardiomyopathy. 6. Urinary retention. 7. Chronic normal pressure hydrocephalus. PLAN: 1. Monitor urine output after dose of Samsca. 2. 3% saline is discontinued. 3. Expect sodium to rise dramatically over the next 24 hours. 4. Follow up pancreatic biopsy. 5. Overall prognosis is grim. Leila Lane MD cc: [id number] TT: 09/12/2016 14:47:19 Confirmation # [id number] Dictation # [id number] miguelito
[2016-09-12 16:19] LABS: BLOOD UREA NITROGEN 10 mg/dL (7-21); CALCIUM 8.5 mg/dL (8.4-10.5); CARBON DIOXIDE 24 mmol/L (21-33); CHLORIDE 98 mmol/L (98-107); GFR AFRICAN-AMERICAN > 60; GLUCOSE,RANDOM 122 mg/dL (70-110); POTASSIUM 4.5 mmol/L (3.6-5.0); SODIUM 127 mmol/L (132-148)
[2016-09-12] MEDS: Morphine 4 mg/ml ISec IVP PRN (19:44)
--- NOTE | 2016-09-12 20:13 | CON ---
DATE: 09/12/2016 LOCATION: 361, bed 1. REQUESTING PHYSICIAN: Silviano Vu MD. REASON FOR CONSULTATION: Abdominal pain. CHIEF COMPLAINT: Abdominal pain that radiates to the back. HISTORY OF PRESENT ILLNESS: The patient is a pleasant 66-year-old male with past medical history of coronary artery disease status post coronary stent, also he suffered dementia and chronic hydrocepha anibal, was admitted to [facility] after feeling of weakness and frequent falling. The carla ent was brought into Emergency Room by his daughter and after doing the work up, the patient was foun d to have a large 5.24 x 3.61 x 3.25 cm ill-defined mass was in mid body and pancreatic head, most li clayton represents pancreatic carcinoma. There was also seen multilevel degenerative disk disease at th e lower lumbar spine. The patient and his daughter the patient was in severe pain yesterday and he was on 2 mg of IV morphi ne which went up to 5 mg of morphine and patient is comfortable, but a little bit sleepy today. PAST MEDICAL HISTORY: Significant for history of posttraumatic stress disorder, anxiety disorder, co ronary artery disease, status post percutaneous coronary intervention and stent placement, cardiomyop athy, dementia, chronic hydrocephalus. PAST SURGICAL HISTORY: History of ventral hernia repair and coronary stenting. ALLERGIES: No known drug allergies. CURRENT MEDICATIONS: Aspirin 81 mg p.o. daily, Lipitor 10 mg daily, enalapril, hydrochlorothiazide, ____ , Naprosyn. He is in the hostel at this point is on 5 mg of morphine IV push q. 3 hours as ne eded and also heparin subQ prophylactic ____. FAMILY HISTORY: Significant for prostate cancer in the father. SOCIAL HISTORY: The patient is a former [id number] smoking, active daily alcohol use, why he denie s any illicit drug abuse. REVIEW OF SYSTEMS: Significant for malaise, decreased urination, constipation, abdominal pain. The patient denied any fevers, chills, chest pain, dyspnea, insomnia. PHYSICAL EXAMINATION: VITAL SIGNS: The patient is afebrile. Vital signs stable. GENERAL: The patient looks weak, cachectic, lying comfortable in bed, slightly sleepy. HEENT: Normocephalic, atraumatic, PERRLA, extraocular muscles intact. No scleral icterus. NECK: Supple. No jugular venous distention. No thyromegaly noted. CHEST: Decreased breath sounds bilaterally. CARDIOVASCULAR: S1, S2 is normal with regular rhythm. ABDOMEN: Soft with epigastric tenderness, slightly distended. NEUROMUSCULAR: He is alert, oriented, slightly drowsy. Cranial nerves II-XII grossly intact. Coord ination was not tested. Gait was not tested. There is tenderness over spinous process of mid thorac ic and lower lumbar spine. ASSESSMENT: Intractable abdominal pain secondary to a pancreatic mass and pancreatic cancer. RECOMMENDATIONS: 1. The patient to continue with the current medication regimen and will recommend to start Relistor for constipation to alleviate some of the abdominal as his last bowel movement was a week ago. 2. The patient will benefit from celiac plexus block which if he continues to have intractable abdom inal pain will schedule for Friday 09/15 at 5 p.m. The procedure was discussed with the patient and hi s daughter. 3. Bedside physical therapy eval and treat. 4. Recommend to decrease the morphine to 4 mg IV push q. 3 hours as needed for pain. 5. If we decide to do the celiac plexus block, the patient needs to stop his heparin 12 hours prior to the procedure. Thank you for your kind consultation. Bernardo Brito MD cc: [phone] TT: 09/12/2016 20:12:04 Confirmation # [id number] Dictation # [id number] jamari
[2016-09-12 20:39] LABS: BLOOD UREA NITROGEN 8 mg/dL (7-21); CALCIUM 8.9 mg/dL (8.4-10.5); CARBON DIOXIDE 26 mmol/L (21-33); CHLORIDE 100 mmol/L (98-107); GFR AFRICAN-AMERICAN > 60; GLUCOSE,RANDOM 124 mg/dL (70-110); POTASSIUM 4.6 mmol/L (3.6-5.0); SODIUM 130 mmol/L (132-148)
--- NOTE | 2016-09-12 21:24 | PN ---
DATE: 09/12/2016 This is the patient's hospital visit on the medical floor. For Dr. Varner. SUBJECTIVE: The patient is a 66-year-old male seen lying awake in bed, family at the bedside, with r ight upper quadrant discomfort improved with the patient known to have suspicion of pancreatic cancer with metastases with tissue diagnosis pending. He was to have had a biopsy this evening; however, t his was put on hold as per Dr. Francisco Matos who reports he will do it at approximately noontime tomorr ow. There is question with the family also regarding comfort measures; however, this will be reconsi dered should the biopsy show a different etiology versus the suspected pancreatic cancer suspected. He is status post paracentesis with approximately 5 liters taken off with suspicious cells as per Dr. Francisco Matos noted on the fluid. With this, the patient is otherwise resting comfortably with his hy ponatremic indices modestly improved. He also saw Dr. Bernardo Brito earlier today for celiac plexus block in approximately 3 days' time with Ambien helping his insomnia. OBJECTIVE: PHYSICAL EXAMINATION: VITAL SIGNS: Temperature 98.6, pulse 96, respirations 20, blood pressure 114/78, pulse ox 96%. HEENT: Unremarkable. NECK: Supple. LUNGS: Decreased breath sounds at the bases. ABDOMEN: Minimal tenderness to gentle palpation on the right mid upper quadrant. EXTREMITIES: Faint +1 edema. NEUROLOGIC: Somnolent but arousable. SKIN: Otherwise, warm, dry and clear. LABORATORY DATA: White blood cell count of 6.0, hemoglobin 9.2, hematocrit 25.9, platelet count of 1 30,000. A chem metabolic panel showing a sodium of 130, chloride normal at 100, nonfasting glucose o f 124. It should be noted that the patient did have tumor markers on 09/07 showing a CA 19-9 of great er than 1000 with a CA of 358. His ascitic fluid drained by Dr. Francisco Matos on 09/07, approximately 5 00 mL, showed a few small clusters with markedly atypical epithelial cells highly suspicious for elda gnancy. As this was not diagnostic, Dr. Francisco Matos will attempt a biopsy for tissue diagnosis tomor row. ASSESSMENT: Hyponatremia, improved, probable pancreatic cancer with metastases, intractable pain of cancer, improved, mental status change secondary to above, history of hydrocephalus, ascites, post-pa racentesis of 500 mL, cardiomyopathy, arteriosclerotic cardiovascular disease. PLAN: After conversation with the patient's daughter, patient, Dr. Varner, and Dr. Francisco Matos, rec ommendations are to proceed with the tissue diagnosis biopsy tomorrow with Dr. Francisco Matos. We will also ask for celiac plexus block by Dr. Brito when possible, possibly as an outpatient if necessary , with continuation of the patient's present medical regimen. With this, the patient's daughter, Janae west, is requesting a phone call conversation regarding the findings when they are returned. Her p gerardo number is [phone]. We will monitor clinically and with labs. Silviano Vu MD cc: [phone] TT: 09/12/2016 21:23:57 Confirmation # [id number] Dictation # [id number] miguelito
[2016-09-13 06:50] LABS: AMYLASE PERITONEAL FLUID 83 U/L
[2016-09-13 08:07] LABS: ADD MANUAL DIFF? NO
[2016-09-13 08:11] LABS: BASO # 0.04 K/mm3 (0.0-2.0); BASO % 0.6 % (0.0-3.0); EOS # 0.1 (0.0-0.7); EOS % 1.6 % (1.5-5.0); GRAN # 5.46 (1.4-6.5); GRAN % 79.2 % (50.0-68.0); HEMATOCRIT 27.7 % (42.0-52.0); LYMPH # 0.7 (1.2-3.4); LYMPH % 9.7 % (22.0-35.0); MEAN CELL VOLUME 82.9 fL (80.0-105.0); MEAN CORPUSCULAR HEMOGLOBIN 28.1 pg (25.0-35.0); MEAN CORPUSCULAR HGB CONC 33.9 g/dl (31.0-37.0); MEAN PLATELET VOLUME 9.2 fl (7.0-11.0); MONO # 0.6 (0.1-0.6); MONO % 8.9 % (1.0-6.0); PLATELET COUNT 169 10^3/uL (120.0-450.0); RED CELL DISTRIBUTION WIDTH 13.8 % (11.5-14.5); WHITE BLOOD COUNT 6.9 10^3/ul (4.5-11.0)
[2016-09-13 08:34] LABS: ALKALINE PHOSPHATASE 93 U/L (38-133); ALT/SGPT 49 U/L (7-56); AST/SGOT 42 U/L (15-59); BILIRUBIN,TOTAL 0.7 mg/dL (0.2-1.3); BLOOD UREA NITROGEN 9 mg/dL (7-21); CALCIUM 8.8 mg/dL (8.4-10.5); CARBON DIOXIDE 26 mmol/L (21-33); CHLORIDE 100 mmol/L (98-107); GFR AFRICAN-AMERICAN > 60; GLUCOSE,RANDOM 123 mg/dL (70-110); MAGNESIUM 2.2 mg/dL (1.7-2.2); PHOSPHOROUS 4.4 mg/dL (2.5-4.5); POTASSIUM 4.6 mmol/L (3.6-5.0); SODIUM 131 mmol/L (132-148); TOTAL PROTEIN 6.1 g/dL (5.8-8.3)
[2016-09-13] MEDS: Iron Complex Polysacch 150mg Cap PO SCH (09:55)
[2016-09-13] MEDS: POLYETHYLENE GLYCOL 3350 17 GM/Dose PACKET PO SCH ×3 (09:55→18:13)
[2016-09-13] MEDS: Morphine 4 mg/ml ISec IVP PRN ×2 (09:56→18:17)
[2016-09-13] MEDS: cefTRIAXone 2 GM IN NS 2 GM/100 ML BAG IVPB SCH (09:56)
[2016-09-13] MEDS: Tolvaptan 15 MG TAB PO SCH (10:11)
--- NOTE | 2016-09-13 10:40 | PN ---
DATE: 09/13/2016 SUBJECTIVE: The patient is seen and examined at bedside on the general medical king. No acute events overnight. He remains afebrile and hemodynamically stable. Arrangements are being made to facilitate home hospice services as per family request. Otherwise, the patient remains clinically unchanged and this morning denies any complaints. OBJECTIVE: VITAL SIGNS: Temperature 98, pulse 45, blood pressure 123/87, respiratory rate 20, oxygen saturation 97% on room air. GENERAL: A frail elderly man appearing his stated age, lying in bed in no apparent distress. HEENT: PERRL, EOMI. No scleral icterus. Mild conjunctival pallor is noted. NECK: No JVD. LUNGS: Decreased breath sounds at the bases. CARDIOVASCULAR: Regular rate and rhythm, normal S1, S2. ABDOMEN: Normoactive bowel sounds, soft, minimally distended. No rigidity, no tympany. EXTREMITIES: No edema. NEUROLOGIC: Awake and alert, oriented to person and place. Able to follow simple commands and move all extremities. LABORATORY DATA: WBC 6.9 with 79% neutrophils, hemoglobin 9.4, hematocrit 27, platelets 169, sodium 131, potassium 4.6, chloride 100, bicarbonate 26, BUN 9, creatinine 0.8, glucose 123. ASSESSMENT: The patient is a 66-year-old man with multiple medical comorbidities who presented to [facility] for evaluation of a several day history of malaise, recurrent falls, apathy, decreased p.o. intake, altered mental status, and abdominal distention and who was initially admitted to the ICU for management of profound symptomatic hyponatremia, new onset massive ascites, and subsequently found to have a newly diagnosed pancreatic mass with possible liver metastases, who is status post transfer out of the ICU status post abdominal paracentesis with cytology report demonstrating a few small clusters of markedly atypical epithelial cells highly suspicious for malignancy. PLAN: 1. Altered mental status. Etiology likely multifactorial and secondary to toxic metabolic encephalopathy secondary to symptomatic hyponatremia as well as underlying Alzheimer dementia. Input from Dr. Orozco of neurology noted and no further neurological intervention indicated the patient's mentation is slowly improving. 2. Symptomatic hyponatremia, improving. Etiology likely multifactorial including depletion hyponatremia in the setting of poor p.o. intake versus possible syndrome of inappropriate antidiuretic hormone in the setting of underlying malignancy. Input from Dr. Yu and Dr. Lane noted and appreciated. Labs demonstrate favorably trending sodium. 3. Ascites, new onset. The patient is status post therapeutic and diagnostic abdominal paracentesis with removal of 6 liters with vamshi fluid. As above, cytology is positive for epithelial cells highly suggestive of malignancy. 4. Pancreatic mass. Input from Dr. Vu and Dr. Varner noted. Given the fact that abdominal fluid is positive for malignancy, will need to discuss with Dr. Matos regarding the necessity for a possible CT-guided biopsy given the possible risks involved. 5. Dilated cardiomyopathy. The patient remains hemodynamically stable. Input from Dr. Garza appreciated. 6. Urinary retention. The patient remains with Gu catheter in place Dr. Mathews is reviewed. He does not feel that the patient will be able to void spontaneously and recommends persistent indwelling Gu catheter, to be changed monthly. 7. Normal pressure hydrocephalus, chronic. Input from Dr. Orozco noted and no new recommendations given stability on neuro imaging as compared to 1 year prior. 8. CAD status post PCI with stent placement. The patient remains chest pain free. Continue with current management. 9. Microcytic anemia. H and H remain stable. The patient remains on iron supplementation. Continue to monitor CBC daily. 10. Alzheimer's dementia 11. Prophylaxis. Continue with Protonix for GI prophylaxis and heparin for DVT prophylaxis. 12. Disposition. The patient is pending disposition to home hospice, but at present, we are just awaiting for arrangements to be in place to facilitate a smooth transition. CODE STATUS: Full code. Tom Powell MD cc: [id number] TT: 09/13/2016 10:39:48 Confirmation # [id number] Dictation # [id number] jn JOVANNI
--- NOTE | 2016-09-13 11:17 | PN ---
DATE: 09/13/2016 SUBJECTIVE: The patient is seen lying in bed. He is awake. He is alert. He appears comfortable. He denies any pain except for back pain. PHYSICAL EXAMINATION: GENERAL: Elderly male lying in bed. VITAL SIGNS: Blood pressure 123/87, heart rate 45, respiratory rate 20, temperature 98. HEENT: Normocephalic, atraumatic. NECK: Supple, no JVD. LUNGS: Bilaterally equal air entry, no rales. CARDIAC: S1, S2, regular rate and rhythm, no murmur. ABDOMEN: Distended, soft, nontender, bowel sounds present. EXTREMITIES: Trace lower extremity edema. INTAKE AND OUTPUT: 1060/4150. LABORATORY DATA: WBC 6.9, hemoglobin 9.4, hematocrit 27.7, platelets 169. Sodium 131, potassium 4.6 , chloride 100, CO2 26, BUN 9, creatinine 0.8, glucose 123, calcium 8.8, phosphorus 4.4, magnesium 2. 2, albumin 3.0. CURRENT MEDICATIONS: Aldactone 50 b.i.d., Ambien, Colace, iron, heparin, MiraLax, morphine, Protonix , Rocephin, Samsca 15 mg, Tylenol, Zofran. ASSESSMENT: 1. New onset ascites. 2. Pancreatic mass. 3. Hyponatremia, syndrome of inappropriate antidiuretic hormone secretion. 4. Severe anemia. 5. Low iron stores. 6. Coronary artery disease. 7. Chronic normal pressure hydrocephalus. 8. Dementia. PLAN: 1. Hyponatremia is responding nicely to tolvaptan. 2. Agree with plans for pancreatic mass biopsy today. 3. Coronary artery disease, stable. Leila Lane MD cc: [id number] TT: 09/13/2016 11:17:14 Confirmation # [id number] Dictation # [id number] jn
--- NOTE | 2016-09-13 13:22 | PN ---
DATE: 09/13/2016 The patient is confused without shortness of breath, without chest pain. PHYSICAL EXAMINATION: VITAL SIGNS: Blood pressure is 123/87, heart rate is in the 40s. NECK: Negative JVD. LUNGS: Without rales. HEART: Reveals S1, S2. EXTREMITIES: Without edema. The hemoglobin is 9.4. Chemistries: Glucose is 123. IMPRESSION: 1. Pancreatic mass. 2. Hyponatremia, improved. 3. Stable angina. 4. Coronary artery disease. 5. Dementia. Given these findings, the patient is for biopsy of his mass today to rule out cancer. Francisco Garza MD cc: [id number] TT: 09/13/2016 13:22:07 Confirmation # [id number] Dictation # [id number] en
[2016-09-13] MEDS ORDERED: Sodium Chloride 0.45% 1,000 ML IV SCH (13:45)
--- NOTE | 2016-09-13 14:03 | PN ---
DATE: 09/13/2016 SUBJECTIVE: The patient is lying in a stretcher. He is status post CT-guided liver biopsy. He resp onds to verbal and painful stimuli. He just recently received fentanyl for his liver biopsy. PHYSICAL EXAMINATION: VITAL SIGNS: Reveal temperature of 98, blood pressure 123/87, heart rate of 45. ABDOMEN: Softly protuberant with ascites. Nontender. EXTREMITIES: Show no edema. LABORATORY DATA: Reveal hemoglobin 9.4, sodium 131. IMPRESSION: A 66-year-old male with a large 5 cm mass in the body and neck of the pancreas with live r metastasis and peritoneal carcinomatosis with ascites, status post large volume paracentesis. Cyto logy from the paracentesis revealed atypical cells suspicious but not definitive for malignancy. Claudette s, the patient underwent a CT-guided liver biopsy this morning. RECOMMENDATIONS: 1. Await pathology results. 2. Family is leaning towards hospice care for this a terminal patient. Daniel George MD cc: [id number] TT: 09/13/2016 14:03:21 Confirmation # [id number] Dictation # [id number] jn
[2016-09-13 14:33] LABS: GLUCOSE PERITONEAL FLUID 94 mg/dL; LDH PERITONEAL FLUID 229 U/L (<63); TOTAL PROTEIN PERITONEAL FLUID 3.8 g/dL; TRIGLYCERIDES PERITONEAL FLUID 31 mg/dL (<65)
--- NOTE | 2016-09-13 17:58 | CT ---
PROCEDURE: CT guided liver biopsy. HISTORY: Large pancreatic mass with multiple liver lesions and carcinomatosis. Needs liver biopsy. PHYSICIAN(S): Francisco Matos MD. TECHNIQUE: The relative risks and indications of the procedure were explained to the patient and his daughter and consent obtained. The patient was placed supine on the CT scanner and preliminary images through the liver obtained. Conscious sedation and monitoring were provided throughout the procedure by a nurse. Multiple liver lesions are seen. 4 cm lesion in the anterior aspect of the right lobe was selected for biopsy. A right anterior oblique approach was selected and the area prepped and draped in the usual sterile fashion. 1% Xylocaine was used to anesthetize the skin and soft tissues. A 17-gauge guiding needle was advanced into the 4.1 cm liver mass. Its position was confirmed with CT. Using coaxial technique, multiple core biopsies were obtained. The postprocedure images show no evidence of significant hemorrhage. IMPRESSION: 1. CT-guided liver biopsy as described above.
--- NOTE | 2016-09-14 08:25 | PN ---
DATE: 09/14/2016 SUBJECTIVE: The patient seen and examined at bedside on the general medical king. No acute events overnight. He remains afebrile and hemodynamically stable. Arrangements have been made for home hospice however, at present, the patient's daughter reports that she is still awaiting the package with the patient's pain medications at home and does not feel comfortable taking him home without these medications in place. She reports that once the medications arrive, she will notify us so the patient may be safely discharged to home. OBJECTIVE: VITAL SIGNS: Temperature 98.7, pulse 50, blood pressure 135/74, respiratory rate 20, oxygen saturation 96% on room air. GENERAL: No apparent distress. HEENT: PERRL, EOMI. No scleral icterus. Mild conjunctival pallor is noted. NECK: No JVD. LUNGS: Decreased breath sounds at the bases. CARDIOVASCULAR: Regular rate and rhythm. Normal S1 and S2. ABDOMEN: Normal active bowel sounds, soft, minimally distended. No rigidity, no tympany. EXTREMITIES: No edema. NEUROLOGIC: Awake and alert, oriented to person and place. Able to follow simple commands and move all extremities. LABORATORY DATA: Morning labs are pending. ASSESSMENT: The patient is a 66-year-old man with multiple medical comorbidities who presented to [facility] for evaluation of several day history of malaise, recurrent falls, apathy, decreased p.o. intake, altered mental status and abdominal distention who was initially admitted to the ICU for management of profound symptomatic hyponatremia, new onset massive ascites and subsequently found to have a newly diagnosed pancreatic mass with possible liver metastases who is now status post transfer out of the ICU with abdominal fluid cytology demonstrating cells suspicious for malignancy who is now status post CT-guided liver biopsy and pending discharge to home hospice. PLAN: 1. Altered mental status, improving. Etiology likely multifactorial and secondary to toxic metabolic encephalopathy secondary to hyponatremia as well as underlying Alzheimer dementia. Input from Dr. Orozco of neurology noted and no further neurological intervention indicated. The patient's mentation is also noted to be trending towards his baseline. 2. Symptomatic hyponatremia, improving. Etiology likely multifactorial including depletional hyponatremia secondary to poor p.o. intake versus SIADH in the setting of underlying malignancy. Input from Dr. Yu or Dr. Lane noted and appreciated, and sodium is trending favorably. 3. Ascites, new onset, etiology likely secondary to underlying malignancy with hepatic metastases. Input from Dr. George noted and appreciated. Input from Dr. Francisco Matos noted and greatly appreciated. 4. Pancreatic mass, likely representing pancreatic carcinoma. Input from Dr. Varner and Dr. Silviano Vu noted and appreciated. The patient is status post CT-guided biopsy of the liver lesion, will await pathology reports. 5. Dilated cardiomyopathy. The patient remains hemodynamically stable. Input from Dr. Garza noted and appreciated. 6. Urinary retention. The patient remains with Gu catheter in place and as per Dr. Mathews he does not feel that the patient will be able to void spontaneously and recommends persistent indwelling Gu catheter to be changed monthly. 7. Normal pressure hydrocephalus, chronic. Input from Dr. Orozco noted and no new recommendations. Review of neuroimaging studies demonstrates stability of ventricular size as compared to 1 year prior. 8. Coronary artery disease, status post percutaneous coronary intervention with stent placement. The patient remains chest pain free. Continue with current medications. 9. Microcytic anemia. Laboratory studies demonstrated stable H and H. Continue with iron supplementation. 10. Alzheimers Dementia. 11. Prophylaxis. Continue Protonix for gastrointestinal prophylaxis and heparin for DVT prophylaxis. 12. Disposition. The patient is pending discharge to home hospice; however, at present, we are waiting for his analgesic medications to arrive at home. In the interim, we will discontinue for further blood draws. CODE STATUS: Full code. Tom Powell MD cc: [id number] TT: 09/14/2016 08:25:12 Confirmation # [id number] Dictation # [id number] jn MTDD
[2016-09-14] MEDS: POLYETHYLENE GLYCOL 3350 17 GM/Dose PACKET PO SCH ×3 (09:39→17:13)
[2016-09-14] MEDS: Iron Complex Polysacch 150mg Cap PO SCH (09:40)
--- NOTE | 2016-09-14 14:18 | PN ---
DATE: 09/14/2016 SUBJECTIVE: The patient is seen lying in bed. He is comfortable. He does not appear to be in any k ind of distress. PHYSICAL EXAMINATION: VITAL SIGNS: Blood pressure 135/74, heart rate 50, respiratory rate 20, temperature 98.2. HEENT: Normocephalic, atraumatic, positive pallor. NECK: Supple, no JVD. LUNGS: Bilateral equal air entry, no rales. EXTREMITIES: No lower extremity edema. ABDOMEN: Distended, bowel sounds present, nontender. INTAKE AND OUTPUT: 495/3900. LABORATORY DATA: WBC 6.9, hemoglobin 9.4, hematocrit 27.7, platelets 169. Sodium 131, potassium 4.6 , chloride 100, CO2 26, BUN 9, creatinine 0.8, glucose 123, calcium 8.8, phosphorus 4.4, magnesium 2. 2, albumin 3.0, corrected calcium is 9.5. CT-guided liver biopsy done yesterday. CURRENT MEDICATIONS: Aldactone 50 b.i.d., Ambien, Colace, Ferrex, heparin, MiraLax, morphine, Proton ix, Tylenol, Zofran. ASSESSMENT: 1. Hyponatremia, dilutional, syndrome of inappropriate antidiuretic hormone secretion. 2. New onset ascites. 3. Pancreatic mass. 4. Anemia. 5. Coronary artery disease, congestive heart failure. 6. Chronic normal pressure hydrocephalus. 7. Intractable pain. PLAN: 1. Follow up biopsy report. 2. Sodium is now acceptable. 3. Continue pain management. 4. Will require close followup. Leila Lane MD cc: [id number] TT: 09/14/2016 14:17:19 Confirmation # [id number] Dictation # [id number] jamari
[2016-09-14] MEDS: Morphine 4 mg/ml ISec IVP PRN ×2 (16:07→20:09)
--- NOTE | 2016-09-15 00:58 | CON ---
DATE: 09/14/2016 The patient is in room 361, bed 1. REASON FOR CONSULTATION: The patient has metastatic carcinoma of the pancreas who is being now set u p for home hospice. We have been asked to consult as to make treatment recommendations for pain con trol in the hospital and at home. Hospice process is in progress. Subjectively, the patient was examined at the bedside. Both her son-in-law and then a few minutes la ter, the daughter were there and we had a significant amount of discussion regarding the patient's fi ndings and overall prognosis. The patient has not had any pain medicines delivered to him or to the daughter at home while in the hospital in preparation for hospice, so they asked me to write out some prescriptions. In the meantime, the family was asking me if arrangements were made for the celiac p yessenia block, for which I did call Dr. Brito and he called me back an hour later, which is in my dic tation as to what he would recommend. SUBJECTIVE: The patient continues to have a significant amount of pain intra-abdominally and mainly in the mid back. His abdomen seems to be bloated. The patient has not had a significant bowel movem ent despite the Relistor that he got. He is passing small amounts of ____ and still getting his enem as as well. Denies any history of nausea or vomiting. No history of fevers or chills. The patient is mildly confused. Some of the information was obtained through my discussion with the daughter. PHYSICAL EXAMINATION: GENERAL: The patient is examined at the bedside. VITAL SIGNS: T-max is 98.4, pulse is 50, blood pre ssure is 135/74, respirations 20 and O2 sat is 96% on room air. HEAD: Is normocephalic and atrauma tic. ABDOMEN: The patient is in distress secondary to abdominal discomfort and back discomfort relat ed to his pancreatic cancer. His abdomen also appears to be bloated. HEENT: The patient does not hav e any icterus. Mild conjunctival pallor is noted. Examination of the oropharynx reveals no orophary ngeal lesions. Tongue is dry. NECK: Supple. There is no adenopathy. No jugular venous distention noted. LUNGS: Reveals decreased breath sounds at both bases. CARDIOVASCULAR: Reveals S1 and S2 to be normal. No gallop or murmur is heard. ABDOMEN: Distended. The patient is complaining of signif icant amount of back pain radiating anteriorly. When asked to point it out, it is in the mid epigast franco and periumbilical area where he feels most of the pain. Abdomen does show shifting dullness as we ll consistent with reaccumulating ascites. EXTREMITIES: Reveals no edema. NEUROLOGIC: The patient is awake and alert, seems to recognize his daughter and son-in-law. Able to move all 4 extremities and able to obey normal commands. LABORATORY DATA: From today was reviewed. White count is 6.9, hemoglobin 9.4, hematocrit 27 and fan telet count of 169,000. Chemistries reveal a sodium of 131, which is improved. The patient is being followed by nephrology also for electrolyte issues. K is 4.6, BUN is 10, creatinine is 0.8 and rand om sugar is 123. Total protein is 6.1 and albumin of 3. MEDICATIONS: The patient's medications were reviewed. He is on spironolactone 50 b.i.d., Ambien 5 a t bedtime, Docusate 100 mg b.i.d. He is on Ferrex 150, 150 mg daily. He is on heparin 5000 units sub cu q. 12 hours. He is on MiraLAX 17 grams p.o. t.i.d. He is on morphine 4 mg IV q. 4 hours p.r.n. He is on pantoprazole 40 mg IV daily. He is on Zofran 4 mg IV q. 6 hours p.r.n. for antiemetic. ASSESSMENT NOTES AND PLAN: The patient still has considerable amount of pain and discomfort as per m y discussion with the patient who is mentally slightly confused, but definitely upon interaction, spe cifically with the daughter and the son-in-law, the patient continues to be in significant pain requi ring morphine on a rather ifwqpg-oxv-lincb basis. I explained the fact that he may benefit from a ce liac plexus block as the pain is only going to get worse over the next few weeks. Family has asked m e as to prognosticate how much time he has and I told them statistically speaking with advanced carci noma of the pancreas, especially with the ascitic fluid being positive for abnormal cells highly susp icious for cancer along with the biopsy of the pancreas still pending, the survival could be anywhere between 6 weeks to 4 months. I told them that during this interval, even if he goes on hospice, the important thing is to palliate and control his pain. I did reach out to Dr. Brito. I spoke to him at length. He said he is prepared to do the celiac plexus block on Friday after his office hours. I told the family about the same. In the meantime, I have written a prescription so they can get it filled in preparation for him being discharged. The plan would be to get him set up for home hospice . Will speak to the coordinator as well for the home hospice. We have prescriptions for both MS Osvaldo tin and Percocet 10/325 oral pain relief at home, also given a prescription for Amitiza ____ mcg twic e a day for constipation related to the narcotics. I ordered a flat plate of the abdomen as the soto y is very much distended today to make sure if it is related to stool or other possibilities includin g importantly evolving bowel obstruction. Depending on the findings, will make further recommendatio ns. In the meantime since the belly does seem to be showing signs that this could be a combination of distention related to fluid and constipation, I am going to go ahead and give him a dose of Relistor today as well in combination with the other medications for his bowels that he is on. Mentally, the patient appears to be more alert as per the family and hopefully we will coordinate everything for h im to go home at the least on Friday after the procedure or on Friday morning. I have explained all of this in great detail to the family. Both the daughter and the son-in-law are deeply appreciative . I also spoke with Dr. Tom Powell regarding our plans and he is in complete agreement. Adrienne Varner MD cc: [id number] TT: 09/14/2016 23:24:06 Confirmation # [id number] Dictation # [id number] sn 09/14/2016 23:58:05
[2016-09-15] MEDS: Iron Complex Polysacch 150mg Cap PO SCH (09:25)
[2016-09-15] MEDS: POLYETHYLENE GLYCOL 3350 17 GM/Dose PACKET PO SCH ×4 (09:25→21:55)
--- NOTE | 2016-09-15 09:26 | RAD ---
PROCEDURE: Radiographs of the chest and abdomen (obstructive series) HISTORY: CONSTIPATION COMPARISON: No prior. TECHNIQUE: AP radiograph of the chest, with upright and supine radiographs of the abdomen. FINDINGS: ABDOMEN AND PELVIS: Bowel: Unremarkable bowel gas pattern. No evidence of mechanical obstruction. Free air: None. Bones: Unremarkable. Other findings: None. IMPRESSION: Unremarkable radiographs of abdomen. No evidence of mechanical bowel obstruction.
[2016-09-15] MEDS ORDERED: POLYETHYLENE GLYCOL 3350 17 GM/Dose PACKET PO SCH (11:30)
[2016-09-15] MEDS: Morphine 4 mg/ml ISec IVP PRN ×2 (13:24→21:55)
--- NOTE | 2016-09-15 20:40 | PN ---
DATE: 09/15/[address] Daniel George. The patient was seen and evaluated earlier. The patient's daughter was at bedside. No significant bowel movements yet. PHYSICAL EXAMINATION: VITAL SIGNS: Temperature is 98.3, pulse of 48, blood pressure 134/85, respirations 20, O2 saturation 97%. HEENT: Atraumatic, anicteric. NECK: Supple. HEART: S1, S2 heard. LUNGS: Bilateral air entry present. ABDOMEN: Distended. Liver palpable. Surgical scar present. EXTREMITIES: No edema. LABORATORY DATA: No recent labs. Last 09/13, BUN 9, creatinine 0.8, hemoglobin 9.4, hematocrit 27.7. IMPRESSION/PLAN: A 66-year-old patient with metastatic carcinoma of the pancreas. Has ____ ascites. Present problems more related to constipation. The abdominal x-ray was reviewed, showed no obstruction. The patient did receive Relistor but still remains constipated. The patient is on MiraLax, which we will increase the dosage. The patient is now being set up for palliative care management. Gastrointestinal followup will be considered as needed. Follow up as needed. Thank you very much for allowing us to participate in the care of the patient. Sean Hough MD cc: [id number] TT: 09/15/2016 20:39:29 Confirmation # [id number] Dictation # [id number] sn MTDD
--- NOTE | 2016-09-15 22:17 | PN ---
DATE: 09/15/2016 PROBLEMS: This is a 66-year-old white male with metastatic carcinoma of the pancreas with significan t ascites, ossification, increasing peripancreatic and mid back pain associated from progressive dise ase, being assessed for celiac plexus block, which is going to be done tomorrow with . The patient was seen at the bedside with the family. Spoke to the daughter and her son-in-law as well. PHYSICAL EXAMINATION: GENERAL: The patient is examined in bed. VITAL SIGNS: T-max is 98.4, pulse is 48, respirations 20, blood pressure is 134/85, O2 sat is 97%. HEENT: Head is normocephalic, atraumatic. Conjunctivae pale. Temporal muscle wasting is noted. Ex amination of the oropharynx reveals no oropharyngeal lesions. NECK: Supple. There is no adenopathy. No jugular venous distention noted. HEART: Reveals S1 and S2 to be normal. No gallop or murmur is heard. LUNGS: Reveals decreased breath sounds at the bases. ABDOMEN: Distended considerably with shifting dullness to . Surgical scar is present. Liver i s palpable. EXTREMITIES: Reveals no significant edema. LABORATORY DATA: Reveals the last labs done from 09/13 with a BUN of 8, creatinine of 0.8, hemoglobi n 9.4, hematocrit 27. The x-rays done from yesterday, the of the abdomen shows no obstruction, but is loaded with stool, for which he is on and is also getting MiraLax for the same. ASSESSMENT NOTES AND PLAN: The patient has been set up for treatment with a celiac plexus block in a .m. and, once the celiac plexus block is done, the patient is going to be sent home on home hospice. Scripts for pain medicines have already been written by me that the patient's family has filled so t hey will have the medicines at home in addition to hospice meds, which will arrive later. We will sp eak to the hospice nurse as well to arrange for any other medicines that the patient may need for com fort and pain control. Overall, prognosis is guarded. I have discussed my findings with the primary doctor, and Andre as well. Adrienne Varner MD cc: [id number] TT: 09/15/2016 22:17:03 Confirmation # [id number] Dictation # [id number] mn
[2016-09-16] MEDS: POLYETHYLENE GLYCOL 3350 17 GM/Dose PACKET PO SCH ×5 (02:13→17:50)
[2016-09-16] MEDS: Morphine 4 mg/ml ISec IVP PRN (05:47)
[2016-09-16] MEDS ORDERED: Pantoprazole 40 mg EC Tab PO SCH (07:30)
--- NOTE | 2016-09-16 08:14 | PN ---
DATE: 09/15/2016 SUBJECTIVE: The patient was seen and examined at bedside on the general medical king. No acute events overnight. He remains afebrile and hemodynamically stable. The patient is pending discharge to home hospice however we are waiting for the patient to undergo a celiac plexus block with Dr. Brito given his diagnosis of likely metastatic pancreatic cancer and concern for severe increase in his pain. Once this procedure is performed, the patient may be safely discharged to home. Otherwise, this morning, he states he feels well and denies any complaints except for some mild abdominal discomfort due to constipation. OBJECTIVE: VITAL SIGNS: Temperature 98.3, pulse 53, blood pressure 134/85, respiratory rate 20, oxygen saturation 97% on room air. GENERAL: In no apparent distress. HEENT: PERRL. EOMI. No scleral icterus. Mild conjunctival pallor is noted. NECK: No JVD. LUNGS: Decreased breath sounds to the bases. CARDIOVASCULAR: Regular rate and rhythm, normal S1 and S2. ABDOMEN: Normoactive bowel sounds, soft, mildly distended. No rigidity, no tympany. EXTREMITIES: No edema. NEUROLOGIC: Awake, alert, oriented to person and place. Able to follow commands and is moving all extremities. LABORATORY DATA: No new labs. ASSESSMENT: The patient is a 66-year-old man with multiple medical comorbidities who presented to [facility] for evaluation of a several day history of malaise, recurrent falls, apathy, decreased p.o. intake, altered mental status and abdominal distention who was initially admitted to the ICU for management of profound symptomatic hyponatremia, new onset massive ascites, newly diagnosed pancreatic mass with likely hepatic metastases who is now s/p transfer out of the ICU and pending celiac plexus block prior to discharge to home hospice. PLAN: 1. Pancreatic mass, likely representing pancreatic carcinoma with metastases. Input from Dr. Varner noted and greatly appreciated. The patient is pending celiac plexus block prior to discharge to home hospice. 2. Altered mental status, improving. Etiology was likely multifactorial secondary to toxic metabolic encephalopathy secondary to hyponatremia as well as the patient's underlying Alzheimer dementia. Input from Dr. Orozco of neurology noted and no further neurological intervention indicated. The patient 's mentation appears to be at his baseline. 3. Symptomatic hyponatremia, resolved. Etiology of hyponatremia likely secondary to poor p.o. intake as well as possible syndrome of inappropriate antidiuretic hormone in the setting of underlying malignancy. Input from Dr. Yu and Dr. Lane noted and appreciated. 4. Ascites. new onset. Etiology likely secondary to underlying malignancy with hepatic metastases. Input from Dr. George appreciated. The patient has been started on Aldactone. 5. Dilated cardiomyopathy. The patient remains hemodynamically stable. Input from Dr. Garza appreciated. Continue with current regimen. 6. Urinary retention. The patient remains with Gu catheter in place draining vamshi urine. The patient has been evaluated by Dr. Mathews of urology and he feels that the patient will unlikely be able to void spontaneously given his significant residual volume on admission and recommends persistent indwelling Gu catheter to be changed monthly. 7. Normal pressure hydrocephalus, chronic. As above input from Dr. Orozco noted and no new recommendations. Review of neuroimaging studies demonstrates stability of ventricular size as compared to 1 year prior. 8. Coronary artery disease, status post percutaneous coronary intervention with stent placement. The patient remains chest pain free and hemodynamically stable. Continue with current medications. 9. Microcytic anemia. Laboratory studies demonstrates stable hemoglobin and hematocrit. Continue with supplemental iron. 10. Alzheimer dementia. 11. Prophylaxis. Continue Protonix for gastrointestinal prophylaxis and heparin for DVT prophylaxis. 12. Disposition. The patient pending discharge to home hospice once he undergoes successful celiac plexus block. CODE STATUS: Full code. Tom Powell MD cc: [id number] TT: 09/15/2016 16:38:59 Confirmation # [id number] Dictation # [id number] karishma BAIG
--- NOTE | 2016-09-16 08:54 | PN ---
DATE: 09/16/2016 SUBJECTIVE: The patient seen and examined at bedside on the general medical king. No acute events o vernight. He remains afebrile and hemodynamically stable. Per discussion with the patient and chelo [facility] staff, the patient had a large bowel movement overnight. This morning, he reports significant i mprovement in his abdominal discomfort due to constipation which is now resolved status post bowel mo vement. Otherwise, we are presently awaiting pursuit of celiac plexus block with Dr. Brito given t he patient's underlying pancreatic carcinoma before discharging the patient to home with home hospice . OBJECTIVE: VITAL SIGNS: Temperature 98.6, pulse 48, blood pressure 146/80, respiratory rate 20, oxygen saturati on 95% on room air. GENERAL: No apparent distress. HEENT: PERRL. EOMI. No scleral icterus. Mild conjunctival pallor is noted. NECK: No JVD. LUNGS: Decreased breath sounds at the bases. CARDIOVASCULAR: Regular rate and rhythm. Normal S1 and S2. ABDOMEN: Normoactive bowel sounds. Soft, nondistended, nontender. No rigidity, no tympany. EXTREMITIES: No edema. NEUROLOGIC: Awake and alert, oriented to person and place. Able to follow commands and move all ext remities. LABORATORY DATA: No new labs. ASSESSMENT: The patient is a 66-year-old man with multiple medical comorbidities who presented to [facility] [place] for evaluation of a several day history of malaise, recurrent falls, apathy, dec reased oral intake, altered mental status and abdominal distention who was initially admitted to the intensive care unit for management of profound symptomatic hyponatremia, new onset massive ascites an d who was subsequently found to have a newly diagnosed pancreatic mass with likely liver metastases, who is now status post transfer out of the intensive care unit status post abdominal paracentesis (de monstrating cells suspicious for malignancy), status post CT-guided liver biopsy with pathology repor ts pending, who is now awaiting celiac plexus block prior to discharge to home hospice. PLAN: 1. Pancreatic mass, likely representing pancreatic carcinoma. Input from Dr. Varner noted and anderson villanueva appreciated. Input from Dr. Francisco Matso noted. The patient is status post CT-guided biopsy of h epatic lesion. Pathology reports are pending. The patient is also scheduled for celiac plexus block with Dr. Brito today prior to discharge to home hospice. 2. Altered mental status, resolved. The patient appears to be back to his baseline mentation. Inpu t from Dr. Orozco of neurology noted and no further neurological intervention indicated. 3. Symptomatic hyponatremia, resolved. Etiology likely secondary to depletional hyponatremia second julio cesar to poor oral intake versus SIADH secondary to underlying malignancy. Input from Dr. Yu and Dr. Lane noted and appreciated. 4. Ascites, new onset, etiology likely secondary to underlying malignancy with hepatic metastases. Input from Dr. George noted and appreciated. Input from Dr. Matos noted and patient is status post the rapeutic/diagnostic paracentesis with removal of 6 liters of fluid. 5. Dilated cardiomyopathy. The patient remains hemodynamically stable. Input from Dr. Garza noted. Will continue with present management. 6. Urinary retention. The patient remains with Gu catheter in place. Dr. Mathews's input appreciat ed and his note reviewed and indicates that the patient will unlikely be able to void spontaneously; therefore, recommendations were made to maintain the Gu catheter in place to be changed monthly. 7. Normal pressure hydrocephalus, chronic. Review of neuroimaging studies demonstrates stability of ventricular size as compared to 1 year prior. As above, no further neurological recommendations. 8. Coronary artery disease, status post percutaneous coronary intervention with stent placement. Th e patient remains chest pain free. Continue with current medications. 9. Microcytic anemia. Labs demonstrate a stable H and H. Continue with iron supplementation. 10. Alzheimer's dementia. 11. Prophylaxis. Continue with Protonix for GI prophylaxis and heparin for DVT prophylaxis. 12. Disposition. The patient is pending discharge to home hospice after he undergoes successful star iac plexus block. CODE STATUS: Full code. Tom Powell MD cc: [id number] TT: 09/16/2016 08:54:01 Confirmation # [id number] Dictation # [id number] yuni
[2016-09-16] MEDS ORDERED: Triamcinolone Acetonide 40 mg/mL Inj ONE (12:38)
[2016-09-16] MEDS ORDERED: Sodium Bicarbonate (8.4%) 50 mEq Vial ONE (12:38)
[2016-09-16] MEDS ORDERED: Iohexol 240 (50 ml) ONE (12:38)
[2016-09-16] MEDS ORDERED: Lidocaine 1% Inj (20ml) ONE ×2 (12:39→13:20)
[2016-09-16] MEDS ORDERED: Bupivacaine 0.5% Inj(30mL) ONE (12:39)
[2016-09-16] MEDS ORDERED: Midazolam 2 MG/2 ML VIAL ONE (13:01)
[2016-09-16] MEDS ORDERED: Bacitracin 500 Units/gm Oint Foilpak UD ONE (13:29)
[2016-09-16] MEDS ORDERED: ePHEDrine 50 mg/ml Inj ONE (14:04)
--- NOTE | 2016-09-16 14:14 | OP ---
PROCEDURE DATE: 09/16/2016 TYPE OF SURGERY: Celiac plexus block under fluoroscopic guidance. PREOPERATIVE DIAGNOSES: 1. Intractable abdominal pain. 2. Stage IV pancreatic cancer. POSTOPERATIVE DIAGNOSES: 1. Intractable abdominal pain. 2. Stage IV pancreatic cancer. TYPE OF ANESTHESIA: Local anesthesia, conscious sedation. SURGEON: Bernardo Brito MD ANESTHESIOLOGIST: Dr. Sanchez BLOOD LOSS: None. METHOD OF SURGERY: The patient signed an informed consent in the preop area and after all risks and complications and all questions were answered. An IV was started in the preop area and the IV fluid administration continued throughout the procedure. Blood pressure, heart rate, pulse oximetry and ca rdiac monitoring were monitored throughout the procedure. Intravenous sedation appropriate to the procedure was administered by the anesthesiologist and was ac curately reflected in the patient's chart. The patient was prepped and draped in sterile fashion in the prone position. The patient's spine was surveyed under fluoroscopic visualization and appropriate anatomical landmarks were identified. Celiac plexus block under fluoroscopic guidance using bilateral approach. The patient's L1 lumbar spine was identified under fluoroscopic guidance and the soft tissue overlyin g bilateral L1 transverse processes were infiltrated with 1% lidocaine without epinephrine and mixed with sodium bicarbonate as a buffer using 25 gauge 1.5 inch spinal needle, a skin needle, and a 22 ga uge 5 inch spinal needle. Through this anesthetized tract of tissue, a 22 gauge 5 inch spinal needle was inserted through anesthetized tract of tissue down to the posterior aspect of her right L1 trans verse process and it was walked off the inferior aspect of this transverse process and advanced anter omedially to the anterior border of L1 vertebral body. The proper needle position was confirmed by [facility] sagittal and lateral fluoroscopic visualization. At this point, the needle was advanced about 1 cm in front of anterior border of L1 vertebral body. The same process was repeated on the left side using another 22 gauge 5 inch spinal needle and it was on the left side, the needle was advanced only to the level of anterior border of L1 vertebral body. After negative aspiration for cerebrospinal f luid or blood, a total of 5 mL of Omnipaque was injected both sides and normal fascial flow was ident ified and there was no vascular flow noted. Following this, a total of 30 mL of fluid was injected each side, 5 mL of Marcaine 0.5%, 10 mL of lid ocaine and 1 mL of Kenalog 40 mg per mL on each side. The patient tolerated the procedure very well, was in good condition at the conclusion of the procedu re and the needles were removed, leaving a trail of lidocaine on its wake. COMPLICATIONS: None. DISPOSITION: 1. The patient was discharged to recovery room in good condition. 2. Discharge instructions provided and explained. 3. Call for any questions or concerns. 4. The patient to follow up as an outpatient as needed. Bernardo Brito MD cc: [id number] TT: 09/16/2016 14:13:28 en
[2016-09-16] MEDS ORDERED: Lactated Ringer's 1,000 ML IV SCH (14:21)
[2016-09-16 14:31] VITALS: TEMP 97
--- NOTE | 2016-09-16 15:01 | RAD ---
PROCEDURE: Fluoro epidural spine injection HISTORY: CELIAC PLEXUS BLOCK COMPARISON: TECHNIQUE: Fluoroscopy was provided in the operating room. 43 seconds fluoro time. Seven images were submitted FINDINGS: The study shows needle placement and contrast injection in the region of the celiac plexus at the L1 level IMPRESSION: As above
[2016-09-16] MEDS: Iron Complex Polysacch 150mg Cap PO SCH (17:49)
--- NOTE | 2016-09-16 18:14 | PN ---
DATE: 09/16/2016 SUBJECTIVE: The patient is seen lying in bed. He is awake, he is alert, he is comfortable. He comp lains of back pain. He denies any chest pain. He denies any shortness of breath. PHYSICAL EXAMINATION: GENERAL: Elderly male lying in bed in no acute distress. VITAL SIGNS: Blood pressure 102/54, heart rate 98, respiratory rate 14, temperature 97. HEENT: Normocephalic, atraumatic. NECK: Supple, no JVD. LUNGS: Bilateral equal air entry, no rales. CARDIAC: S1, S2, regular rate and rhythm, no murmur, no rub. ABDOMEN: Obese, distended, soft, bowel sounds present. EXTREMITIES: No lower extremity edema. INTAKE AND OUTPUT: 760/1125. LABORATORY DATA: No new labs. Biopsy report: Metastatic adenocarcinoma with vascular invasion. CURRENT MEDICATIONS: Aldactone 50 b.i.d., Ambien, Colace, iron, MiraLax, morphine, Protonix, Tylenol , Zofran. ASSESSMENT AND PLAN: 1. Metastatic pancreatic cancer. 2. New onset ascites. 3. Chronic back pain. 4. Coronary artery disease, congestive heart failure. 5. Chronic normal pressure hydrocephalus. 6. Hyponatremia, syndrome of inappropriate antidiuretic hormone. PLAN: 1. Treatment of metastatic pancreatic cancer as per oncology. 2. Palliative care. 3. Sodium is acceptable. Leila Lane MD cc: [id number] TT: 09/16/2016 18:14:27 Confirmation # [id number] Dictation # [id number] dn
[2016-09-16 18:20] VITALS: BP 97/58; PULSE 49; RESP 16; O2SAT 93
--- NOTE | 2016-09-16 23:10 | PN ---
DATE: 09/16/2016 LOCATION: The patient is in room 361, bed 1. SUBJECTIVE: The patient is examined at the bedside. No acute events. The patient apparently had a large bowel movement last night, which has helped the patient immensely, and he the reports his abdom inal discomfort is improved with the passage of the bowel. Otherwise, patient is waiting for celiac plexus block for the back pain related to his pancreatic carcinoma which is going to be done by Dr. Cynthia smith. Following the celiac plexus block, the patient is going to be sent home with home hospice. OBJECTIVE: The patient is examined at the bedside. VITAL SIGNS: Reveal T-max of 98.4, pulse is 48, blood pressure is 146/80, respirations 20, O2 sat is 95% on room air. GENERAL: The patient is in no acute distress. He continues to have back pain radiating anteriorly. HEENT: Head is normocephalic, atraumatic. Mild conjunctival pallor is noted. Oropharynx reveals no oropharyngeal lesions. Tongue is coated and dry. NECK: Supple. There is no adenopathy. LUNGS: Reveal decreased breath sounds in both bases. HEART: Reveals S1 and S2 to be normal. No gallop or murmur is heard. ABDOMEN: Soft, nondistended, mildly tender in the epigastrium. No rigidity, no tympany. Overall, t he abdominal distention appears to be improved. EXTREMITIES: Reveals no cyanosis, clubbing, or edema. NEUROLOGIC: The patient is awake, alert, and oriented to place and person, and is able to follow com mands and move all extremities. ASSESSMENT NOTES AND PLAN: This is a 66-year-old male with multiple comorbidities, including coronar y artery disease, recently found to have malignant ascites related to carcinoma of the pancreas, docu mented liver metastasis. The patient has a history of chronic hydrocephalus and a baseline dementia, though patient is able to function to a reasonable extent in communicating with people around him. The patient has had new onset of massive ascites which was tapped and was positive for atypical cells , but not conclusive for malignancy. In view of this, the patient underwent CT-guided biopsy of the liver, which is consistent with metastatic tumor, adenocarcinoma consistent with pancreatic primary. Detailed discussion with the patient's family, including the daughter and his son-in-law. Arrangemen ts have been made for home hospice. I have given a prescription for MS Contin. Also, given a prescr iption for Percocets, as well. The patient is going to be evaluated by the hospice team to determine if he needs anything in the home situation. Told the family to keep me as the personal property assessor for pa in control as far as hospice is concerned. His baseline mental status is relatively good. The alter ed mental status is improved. The patient has been followed and seen by Dr. Riki Orozco, the neuro logist. Symptomatic hyponatremia has also improved, probably related to a combination of factors. A detailed discussion with the patient's family was done regarding the ultimate prognosis for the carla ent and what we should be looking out for. TIME SPENT: Was 45 minutes. Adrienne Varner MD cc: [id number] TT: 09/16/2016 23:09:30 Confirmation # [id number] Dictation # [id number] karishma
--- NOTE | 2016-09-23 11:17 | DS ---
ADMITTING DIAGNOSIS: Altered mental status. DISCHARGE DIAGNOSES: Altered mental status secondary to toxic metabolic encephalopathy, newly-diagnosed pancreatic mass. SECONDARY DIAGNOSES: Severe symptomatic hyponatremia, new-onset ascites, dilated cardiomyopathy, urinary retention, normal pressure hydrocephalus ( chronic), Alzheimer's dementia, CAD status post PCI with stent placement, microcytic anemia, PTSD, and anxiety disorder. CONSULTATIONS: Dr. George (gastroenterology), Dr. Brito (pain management), Dr. Varner (hematology/oncology), Dr. Orozco (neurology), Dr. Mathews (urology), Dr. Yu (nephrology), and Dr. Garza (cardiology). PROCEDURES: 1. Abdominal paracentesis with removal of 6 liters of fluid with negative cytology. 2. CT-guided liver biopsy, which demonstrated metastatic adenocarcinoma with vascular invasion favoring pancreatobiliary origin. HISTORY OF PRESENT ILLNESS: The patient is a 66-year-old man with past medical history of CAD status post PCI with stent placement, dilated cardiomyopathy, Alzheimer's dementia, and chronic normal-pressure hydrocephalus who presented to [facility] Emergency Department for evaluation of a 2-week history of progressively worsening altered mental status, recurrent falls, generalized weakness, apathy, and decreased p.o. intake. The patient's daughter stated that for the past 7-10 days, he has been having moments of altered sensorium with visual hallucinations. The daughter also reported significantly decreased p.o. intake over the same period of time and witnessed 3 mechanical falls. Given the progression of his symptoms, she opted for evaluation in the Emergency Department. Upon arrival to the Emergency Department, he was noted to be afebrile and hemodynamically stable, however, persistently confused. A CT of the head demonstrated chronic microvascular ischemic changes and persistent dilatation of the lateral and third ventricles, which were unchanged from prior neuro imaging studies. Routine laboratory studies demonstrated profound hyponatremia with a serum sodium of 109. The patient was promptly evaluated by the ICU team, and subsequently, admitted to the ICU for continued management of symptomatic hyponatremia. HOSPITAL COURSE: Upon admission to the ICU, the patient was evaluated by Dr. Yu of nephrology. A full urologic workup found the etiology of the hyponatremia was likely secondary to depletional hyponatremia due to poor p.o. intake, as well was likely component of SIADH given his underlying newly- diagnosed pancreatic mass. The patient was also evaluated by Dr. George of gastroenterology given his new-onset ascites, and CT of the abdomen and pelvis, which demonstrated multiple hepatic metastatic lesions, as well as a pancreatic mass concerning carcinoma. The patient underwent successful abdominal paracentesis with Dr. Francisco Matos with removal of 6 liters of fluid. The initial laboratory studies were unremarkable. and the cytology was negative. Given the patient's clinical deterioration and the need for tissue diagnosis, the patient underwent CT-guided biopsy of a hepatic lesion with pathology demonstrating metastatic invasive adenocarcinoma favoring pancreatobiliary origin. Given the patient's diagnosis, as well as his grim prognosis, Dr. Varner and Suki Hyde of palliative services met with the family and discussed their options, and after a thorough discussion with the family members , home hospice was opted for. Given the nature of the patient's illness, and the fact that he was newly diagnosed with pancreatic cancer, Dr. Varner had informed the family that the pain can become quite severe, and recommendations were made to pursue a celiac plexus block for patient comfort prior to discharge to home. The patient was successfully taken to the fluoroscopy suite with Dr. Brito where he underwent successful celiac plexus block, and was subsequently, discharged to home hospice. CONDITION: Fair, improved. DISPOSITION: To home with home hospice services. DISCHARGE MEDICATIONS: Zofran 4 mg p.o. q. 4 hours p.r.n. nausea, narcotic analgesic regimen to be determined by home hospice services. DISCHARGE INSTRUCTIONS: The patient and his family were advised to inform the hospice services immediately of any change in his clinical status, as well as any uncontrolled pain or any other symptoms, so that we may optimize symptom control. FOLLOWUP: The patient will be followed by the hospice care nurses who will inform his physician of any clinical change. Tom Powell MD cc: [id number] TT: 09/23/2016 11:16:41 jn [email or web address]
== END 2016-09-16 21:06 | disposition hospice, home (50) | DRG 435 ==
LOC: ED 09:19 → ERH 11:50 → CCU 13:42 → 3RNO 09-10 18:34
PROVIDERS: ADMIT Internal Medicine; ATTEND Internal Medicine
PROC: 0W9G3ZX Drainage of Peritoneal Cavity, Percutaneous Approach, Diagnostic (ICD-10-PCS; 2016-09-09)
PROC: 0FB13ZX Excision of Right Lobe Liver, Percutaneous Approach, Diagnostic (ICD-10-PCS; principal; 2016-09-13 12:30)
PROC: 3E0T3CZ (ICD-10-PCS; 2016-09-16)
PROC: 3E0T33Z Introduction of Anti-inflammatory into Peripheral Nerves and Plexi, Percutaneous Approach (ICD-10-PCS; 2016-09-16)
DX: C25.1 Malignant neoplasm of body of pancreas (principal); C25.0 Malignant neoplasm of head of pancreas; C78.7 Secondary malignant neoplasm of liver and intrahepatic bile duct; C78.6 Secondary malignant neoplasm of retroperitoneum and peritoneum; G92 Toxic encephalopathy; E22.2 Syndrome of inappropriate secretion of antidiuretic hormone; R18.0 Malignant ascites; R62.7 Adult failure to thrive; K65.2 Spontaneous bacterial peritonitis; G89.3 Neoplasm related pain (acute) (chronic); K76.6 Portal hypertension; G91.2 (Idiopathic) normal pressure hydrocephalus; I42.0 Dilated cardiomyopathy; I50.42 Chronic combined systolic (congestive) and diastolic (congestive) heart failure; I11.0 Hypertensive heart disease with heart failure; F02.80 Dementia in other diseases classified elsewhere, unspecified severity, without behavioral disturbance, psychotic disturbance, mood disturbance, and anxiety; G30.9 Alzheimer's disease, unspecified; I25.119 Atherosclerotic heart disease of native coronary artery with unspecified angina pectoris; R33.9 Retention of urine, unspecified; D50.9 Iron deficiency anemia, unspecified; E87.6 Hypokalemia; I44.7 Left bundle-branch block, unspecified; F10.20 Alcohol dependence, uncomplicated; M51.36 Other intervertebral disc degeneration, lumbar region; K70.31 Alcoholic cirrhosis of liver with ascites; K59.00 Constipation, unspecified; F43.10 Post-traumatic stress disorder, unspecified; R29.6 Repeated falls; G47.00 Insomnia, unspecified; Z91.81 History of falling; Z78.1 Physical restraint status; Z95.5 Presence of coronary angioplasty implant and graft; Z87.891 Personal history of nicotine dependence; Z80.42 Family history of malignant neoplasm of prostate; Z85.46 Personal history of malignant neoplasm of prostate

== ENCOUNTER 2016-09-22 16:07 | Inpatient (IN) | payer OTHER, MEDICARE, BC ==
[2016-09-22 16:07] VITALS: PULSE 74; BMI 24.3
--- NOTE | 2016-09-22 16:59 | ED PDOC ---
Arrival/HPI - General Chief Complaint: Abdominal Pain Time Seen by Provider: 09/22/16 16:47 - History of Present Illness Narrative History of Present Illness (Text): 66 y/o M c PMHx pancreatic/liver cancer on hospice p/w increasing abdominal distention x 1 week. Patient was admitted to this hospital 2-3 weeks ago for abdominal distention and was found to have pancreatic/liver cancer at that time. He was discharged from the hospital almost 1 week ago on hospice but as per the family, he has been increasingly uncomfortable due to his worsening ascites. Family denies vomiting or fever. Patient unable to provide any additional history due to dementia. Past Medical History - Past History Past History: Non-Contributing - Infectious Disease Hx of Infectious Diseases: None - Tetanus Immunization Tetanus Immunization: Unknown - Cardiac Hx Pacemaker: No - Pulmonary Hx Respiratory Disorders: No - Neurological Hx Paralysis: No - HEENT Hx HEENT Disorder: Yes Hx Deafness: Yes - Renal Hx Renal Disorder: No - Endocrine/Metabolic Hx Endocrine Disorders: No - Hematological/Oncological Hx Blood Transfusions: No Hx Blood Transfusion Reaction: No - Integumentary Hx Dermatological Disorder: No - Musculoskeletal/Rheumatological Hx Musculoskeletal Disorders: Yes - Gastrointestinal Hx Gastrointestinal Disorders: No - Genitourinary/Gynecological Hx Genitourinary Disorders: No - Psychiatric Hx Emotional Abuse: No Hx Physical Abuse: No Hx Substance Use: No - Surgical History Hx Coronary Stent: Yes - Anesthesia Hx Anesthesia Reactions: No Hx Malignant Hyperthermia: No - Suicidal Assessment Feels Threatened In Home Enviroment: No Family/Social History Family/Social History: No Known Family HX Smoking Status: Former Smoker Hx Alcohol Use: Yes (SOCIAL- BEER) Hx Substance Use: No Hx Substance Use Treatment: No Allergies/Home Meds Allergies/Adverse Reactions: Allergies No Known Allergies Allergy (Verified 08/17/16 12:03) Home Medications: Home Meds Medication Instructions Recorded Confirmed Enalapril Maleate [Vasotec] 5 mg PO BID 09/22/16 09/22/16 Hydrochlorothiazide [Microzide] 25 mg PO DAILY 09/22/16 09/22/16 LORazepam [Ativan] 0.5 mg PO PRN PRN 09/22/16 09/22/16 Lactulose [Generlac] 10 gm PO DAILY 09/22/16 09/22/16 Lubiprostone [Amitiza] 24 mcg PO BID 09/22/16 09/22/16 Morphine Sulfate 100mg/5ml 0.25 ml Q3 09/22/16 Morphine [Morphine Sulfate] 15 mg PO Q12 09/22/16 09/22/16 Oxycodone HCl/Acetaminophen 1 tab PO PRN PRN 09/22/16 09/22/16 [Endocet 325 mg-10 mg] Review of Systems - Review of Systems Systems not reviewed;Unavailable: Dementia Physical Exam - Physical Exam Narrative Physical Exam (Text): Constitutional: Elderly male, ill appearing. Head: Normocephalic. Eyes: Closed. Cardiovascular: Regular rate. Respiratory: Normal respiratory rate. GI: Distended. Musculoskeletal: No swelling of extremities. Skin: Pale. Neurologic: Awake, groans to verbal stimuli. Vital Signs Temp Pulse Resp BP Pulse Ox 09/22/16 17:43 68 18 101/58 L 96 09/22/16 16:36 97 F L 72 20 99/50 L 95 Medical Decision Making ED Course and Treatment: Dr. Moon accepts patient for consult and will arrange for paracentesis. Dr. Powell accepts patient to his service. Disposition/Present on Arrival - Present on Arrival Any Indicators Present on Arrival: Yes History of DVT/PE: No History of Uncontrolled Diabetes: No Urinary Catheter: Yes History of Decub. Ulcer: No History Surgical Site Infection Following: None - Disposition Have Diagnosis and Disposition been Completed?: Yes Diagnosis: Ascites Disposition: HOSPITALIZED Disposition Time: 18:23 Patient Plan: Observation Condition: FAIR
[2016-09-22 18:39] LABS: ADD MANUAL DIFF? NO
[2016-09-22 18:43] LABS: BASO # 0.02 K/mm3 (0.0-2.0); BASO % 0.2 % (0.0-3.0); EOS # 0.1 (0.0-0.7); EOS % 1.4 % (1.5-5.0); GRAN # 8.06 (1.4-6.5); GRAN % 85.3 % (50.0-68.0); LYMPH # 0.3 (1.2-3.4); LYMPH % 3.1 % (22.0-35.0); MEAN CELL VOLUME 81.2 fL (80.0-105.0); MEAN CORPUSCULAR HEMOGLOBIN 28.7 pg (25.0-35.0); MEAN CORPUSCULAR HGB CONC 35.4 g/dl (31.0-37.0); MEAN PLATELET VOLUME 8.7 fl (7.0-11.0); MONO # 0.9 (0.1-0.6); PLATELET COUNT 281 10^3/uL (120.0-450.0); RED CELL DISTRIBUTION WIDTH 13.6 % (11.5-14.5); WHITE BLOOD COUNT 9.4 10^3/ul (4.5-11.0)
[2016-09-22 18:54] LABS: INR 1.09 (0.93-1.08); PARTIAL THROMBOPLASTIN TIME 28.5 Seconds (23.7-30.8)
[2016-09-22 19:23] LABS: ALB/GLOB RATIO 0.9 (1.1-1.8); ALKALINE PHOSPHATASE 142 U/L (38-133); ALT/SGPT 66 U/L (7-56); AST/SGOT 57 U/L (15-59); BILIRUBIN,TOTAL 0.9 mg/dL (0.2-1.3); BLOOD UREA NITROGEN 41 mg/dL (7-21); CALCIUM 8.7 mg/dL (8.4-10.5); CARBON DIOXIDE 22 mmol/L (21-33); CHLORIDE 84 mmol/L (98-107); GFR AFRICAN-AMERICAN > 60; GLUCOSE,RANDOM 138 mg/dL (70-110); POTASSIUM 3.9 mmol/L (3.6-5.0); TOTAL PROTEIN 6.3 g/dL (5.8-8.3)
[2016-09-22 19:26] LABS: SODIUM 116 mmol/L (132-148)
[2016-09-22] MEDS: Morphine 2 mg/ml ISec IVP PRN (22:51)
--- NOTE | 2016-09-23 08:29 | HP ---
HISTORY OF PRESENT ILLNESS: The patient is a 66-year-old man with multiple medical comorbidities including newly diagnosed metastatic pancreatic adenocarcinoma who was recently discharged from [facility] (09/16/2016 ) after an admission for altered mental status and increased abdominal distention. It was during this admission that the patient was diagnosed with stage IV pancreatic cancer and arrangements were made, at the request of the patient and family, for home hospice services. Over the last several days, however, the patient was noted to have increasing abdominal distention and worsening confusion which prompted his family to bring him to the Emergency Department. There is no report of nausea, vomiting, diarrhea, fevers, chills or rigors as per the family. PAST MEDICAL HISTORY: As per HPI, also history of PTSD, anxiety disorder, CAD status post PCI with stent placement, dilated cardiomyopathy, Alzheimer dementia and chronic normal pressure hydrocephalus. PAST SURGICAL HISTORY: As per HPI, also history of ventral hernia repair. ALLERGIES: No known drug allergies. MEDICATIONS: Zofran 4 mg p.o. q. 6 hours p.r.n. nausea, morphine 2 mg IV q. 4 hours p.r.n. pain. FAMILY HISTORY: Significant for prostate cancer in the father. SOCIAL HISTORY: The patient reports a former [id number] smoking history and daily alcohol use (last drink was approximately 2-3 weeks ago). He denies illicit drug abuse. REVIEW OF SYSTEMS: Unable to obtain given altered mental status of the patient. PHYSICAL EXAMINATION: VITAL SIGNS: Temperature 97.6, pulse 91, blood pressure 104/50, respiratory rate 18, oxygen saturation 96% on 2 liters nasal cannula. GENERAL: Frail, elderly man, lying in bed, in no apparent distress. HEENT: Normocephalic, atraumatic. PERRL. EOMI. No scleral icterus. Mild conjunctival pallor is noted. NECK: No JVD. LUNGS: Decreased breath sounds at the bases with bibasilar crackles. CARDIOVASCULAR: Regular rate and rhythm. Normal S1 and S2. ABDOMEN: Normoactive bowel sounds, distended with tense ascites, no rigidity, no tympany. EXTREMITIES: No edema. NEUROLOGIC: Awake, alert, unable to follow commands, able to move all extremities. LABORATORY DATA: No new labs. ASSESSMENT: The patient is a 66-year-old man with multiple medical comorbidities and newly diagnosed stage IV pancreatic adenocarcinoma who presented to [facility] from home hospice for evaluation of increasing abdominal distention and confusion. PLAN: 1. Recurrent ascites, etiology likely secondary to underlying malignancy with hepatic metastases. Dr. Francisco Matos has been consulted for therapeutic paracentesis. 2. Metastatic adenocarcinoma with likely pancreatic origin. Review of pathology from CT-guided biopsy from patient's prior admission demonstrates the aforementioned pathology findings. As above, the patient is on home hospice. Once therapeutic paracentesis is obtained, patient will be discharged back to home hospice unless there has been a change of plan from the family. The patient is also status post celiac plexus block with Dr. Brito on his prior admission to mitigate pain symptoms. 3. Altered mental status, etiology likely multifactorial and secondary to hyponatremia noted on admission versus progression of patient's underlying Alzheimer dementia versus possible underlying hepatic encephalopathy. 4. Dilated cardiomyopathy. The patient remains hemodynamically stable and off antihypertensives. 5. Urinary retention. The patient remains with Gu catheter in place. As per Dr. Mathews's input from prior admission, the patient to remain with Gu catheter in place and to be changed monthly. 6. Normal pressure hydrocephalus, chronic. 7. Coronary artery disease, status post percutaneous coronary intervention with stent placement. 8. Microcytic anemia. 9. Alzheimer dementia. 10. Disposition. The patient pending discharge to home hospice once he undergoes therapeutic paracentesis. CODE STATUS: DNR/DNI. Tom Powell MD cc: [id number] TT: 09/23/2016 08:28:14 en MTDD
--- NOTE | 2016-09-23 11:57 | CARD ---
APPROVED REPORT EKG Measurement Heart [id number] <Conclusion> Atrial fibrillation, new Left bundle branch block
[2016-09-23] MEDS: Morphine 2 mg/ml ISec IVP PRN (15:42)
[2016-09-23] MEDS: Morphine PCA 1 mg/ml (25ml) 25 ML IV PRN (18:19)
--- NOTE | 2016-09-23 20:13 | US ---
PROCEDURE: Ultrasound guided paracentesis. HISTORY: Metastatic pancreatic CA. Malignant ascites. Abdominal pain and distension. Needs paracentesis. PHYSICIAN(S): Francisco Matos MD. TECHNIQUE: The relative risks and indications for the procedure were explained to the patient and informed written consent obtained. Sonography of the abdomen was performed in a supine position. This revealed a moderate amount of non-loculated ascites, greatest in the right lower quadrant. A puncture site was selected and the area was prepped and draped in the usual sterile fashion. 1% Xylocaine was used to anesthetize the skin and soft tissues. A 7 Serbian paracentesis catheter was trocared into the right lower quadrantand 3500 cc of vamshi fluid aspirated. No labs were sent.. IMPRESSION: Ultrasound-guided paracentesis in the right lower quadrant. 3500 cc of fluid were aspirated.
--- NOTE | 2016-09-24 00:22 | CON ---
DATE: 09/23/2016 HISTORY OF PRESENT ILLNESS: The patient is known to me from prior admissions. The patient has a [place] gnosis of metastatic adenocarcinoma with ascitic fluid positive for malignancy, status post liver bio psy confirming it is metastatic adenocarcinoma. The patient has multiple comorbidities including alt ered mental status and increasing abdominal distention for which when he was in the hospital had para centesis done and more than 5 liters of fluid removed at that time. The patient was sent home. His constipation was also treated aggressively with Relistor and oral agents until he had a bowel movemen t and he was sent home to be put on home hospice. Prior to that, he also received a celiac plexus bl ock and he was supposed to be followed up as an outpatient by both us and by the pain specialist in [place] the pain was coming back. In the meantime, arrangements were made for home hospice services. Ov er the last several days, the patient was noted to have increasing abdominal distention and worsening confusion and the daughter has called me and I advised them to take him to the Emergency Room, which would be the most appropriate way to do management under hospice for respite services. No report of nausea, vomiting, diarrhea, fevers, chills or rigors as per the family. The patient was getting pro gressively distended as per the daughter who I spoke with over the phone. PAST MEDICAL HISTORY: As per the HPI, history of anxiety disorder, coronary artery disease, status p ost percutaneous coronary intervention with stent placement, dilated cardiomyopathy, Alzheimer evangelina ia, chronic normal pressure hydrocephalus. MEDICATIONS: The patient's medications include 4 mg of Zofran q. 6 hours p.r.n., morphine 2 mg IV q. 4 hours p.r.n. At home, he was given a prescription for MS Contin 15 q. 12 hours along with Percoc et 10/325 q. 6 hours p.r.n. for pain. SOCIAL HISTORY: The patient is a former 35 pack year smoking history and daily alcohol use, which he quit several weeks ago. Denies any illicit drug use. PHYSICAL EXAMINATION: VITAL SIGNS: At the time of consultation reveals the patient's vital signs as follows. The patient is in bed. T-max is 98.4, blood pressure is 104/70, respirations 18, O2 sat is 96% on 2 liters of na krishan cannula. GENERAL: The patient is a frail elderly man, lying in bed. Temporal muscle wasting is noted. HEENT: Head is normocephalic, atraumatic. Pupils are equally reactive to light and accommodation. There is no scleral icterus. Mild conjunctivae pallor is noted. Examination of the oropharynx revea ls no oropharyngeal lesions. Tongue is coated. NECK: Supple. There is no adenopathy. CHEST: Lungs reveals decreased breath sounds at both bases with bibasilar crackles. CARDIOVASCULAR: Reveals S1 and S2 to be normal. No gallop or murmur is heard. ABDOMEN: Distended with tense ascites. No rigidity or tympany is noted. EXTREMITIES: Reveals no cyanosis, clubbing or edema. NEUROLOGIC: Higher functions are normal. The patient is unable to follow commands, able to move all 4 extremities. ASSESSMENT NOTES AND PLAN: This is a 66-year-old male with multiple comorbid medical issues now a di agnosis of stage IV metastatic adenocarcinoma, admitted to the hospital for progressive abdominal dis tention despite the tapping done about a week ago. The patient had another tap done this evening wit h drainage of more than 3.5 liters of serosanguineous fluid. The patient was also in a lot of pain. We started PCI for the pain and we will see how the patient feels over the next 12 hours before rubén ng any plans for discharge on home hospice. Routine post exam instructions have been given to the chadwick kenney who are going to report to me any other untoward symptoms the patient may be having. I will spe ak to Dr. Powell as well and explained to him what we should be doing for the patient. Adrienne Varner MD cc: [id number] TT: 09/24/2016 00:21:43 Confirmation # [id number] Dictation # [id number] mn
[2016-09-24 07:51] VITALS: RESP 16
--- NOTE | 2016-09-24 08:51 | PN ---
DATE: 09/24/2016 SUBJECTIVE: The patient seen and examined at bedside on the general medical king. The patient is status post therapeutic paracentesis with Dr. Francisco Matos with removal of 3.5 liters of vamshi fluid. This morning, the patient is noted to have improved abdominal distention, but otherwise remains largely clinically unchanged in that he still remains somnolent and unable to follow commands. Per discussion with nursing staff, the patient has been noted to have episodes of hypotension overnight with blood pressure ranging from 60s-80s systolic and otherwise there were no acute events. OBJECTIVE: VITAL SIGNS: Temperature 98.3, pulse 45, blood pressure 87/35, respiratory rate 16, oxygen saturation 95% on room air. GENERAL: Frail, elderly man, lying in bed, who is diaphoretic, but in no apparent distress. HEENT: PERRL, EOMI. No scleral icterus. Mild conjunctival pallor is noted. NECK: No JVD. LUNGS: Decreased breath sounds at the bases with bibasilar crackles. CARDIOVASCULAR: Regular rate and rhythm. Normal S1 and S2. ABDOMEN: Normoactive bowel sounds, soft, mildly distended. No rigidity, no tympany. EXTREMITIES: No edema. NEUROLOGIC: Awake and alert, unable to follow commands, moving all extremities. LABORATORY DATA: No new labs. ASSESSMENT: The patient is a 66-year-old man with multiple medical comorbidities including newly diagnosed stage IV pancreatic adenocarcinoma who presented to [facility] from home hospice for evaluation of a several-day history of increasing abdominal distention and worsening confusion. PLAN: 1. Recurrent ascites. Etiology likely secondary to underlying malignancy with hepatic metastases. Dr. Francisco Matos's assistance noted and greatly appreciated. The patient is status post removal of 3.5 liters of vamshi fluid. 2. Metastatic adenocarcinoma of likely pancreatic origin. Input from Dr. Varner noted and greatly appreciated. The patient has been started on morphine patient controlled analgesia. The patient also is status post celiac plexus block with Dr. Brito on his prior admission to mitigate pain symptoms. 3. Altered mental status, etiology likely multifactorial and secondary to toxic metabolic encephalopathy superimposed on underlying dementia. 4. Dilated cardiomyopathy. 5. Urinary retention. The patient remains with Gu catheter in place and noted to drain vamshi colored urine. 6. Normal pressure hydrocephalus, chronic. 7. Coronary artery disease, status post percutaneous coronary intervention with stent placement. 8. Microcytic anemia. 9. Alzheimer dementia. 10. Disposition. The patient is pending reevaluation prior to discharge to home hospice. CODE STATUS: DNR/DNI. Tom Powell MD cc: [id number] TT: 09/24/2016 08:51:07 Confirmation # [id number] Dictation # [id number] en MTDD
[2016-09-24] MEDS: Morphine PCA 1 mg/ml (25ml) 25 ML IV PRN (09:30)
[2016-09-24 16:43] VITALS: BP 78/33; PULSE 43; TEMP 98; O2SAT 98
--- NOTE | 2016-09-25 02:04 | PN ---
DATE: 09/24/2016 The patient is in room 364, bed 2. SUBJECTIVE: The patient is examined at the bedside. The patient's family is there. I spoke at viviane th to the daughter. The patient is status post therapeutic paracentesis with 3.5 liters of fluid rem rina. The patient has a YOUTH CARE WORKER pump with morphine 1.5 mg an hour. The patient's abdominal distention h as improved, but clinically remains unchanged, is somnolent, unable to follow commands, but at the sa me time appears to be pain free. The patient has been having episodes of hypotension overnight . Otherwise, there have been no acute events. PHYSICAL EXAMINATION: GENERAL: The patient is examined in bed. VITAL SIGNS: T-max is 98.4, pulse 45, , respirations 16, O2 sat is 95%. GENERAL: The patient is an elderly, thin man lying in bed, who is diaphoretic, but is somnolent from the YOUTH CARE WORKER morphine that was started. He appears to be more comfortable. HEENT: Head is normocephalic and atraumatic. There is no scleral icterus. Mild conjunctival pallor is noted. Examination of the oropharynx reveals no significant oropharyngeal lesions. Tongue is dr y. NECK: Supple. There is no adenopathy. No jugular venous distention. LUNGS: Reveal decreased breath sounds at both bases, bibasilar crackles. HEART: Reveals S1 and S2 to be normal. ABDOMEN: Soft, mildly distended. No rigidity. No tympany is noted. EXTREMITIES: Reveals no significant edema. The patient is moving all 4 extremities, but appears to be somnolent from the YOUTH CARE WORKER and definitely pain free. LABORATORY DATA: No new labs have been drawn. ASSESSMENT NOTES AND PLAN: The patient has multiple comorbidities, the predominate thing being metas tatic carcinoma of the pancreas with ascites that was positive for malignancy along with liver metast asis, status post celiac plexus block. Currently on IV YOUTH CARE WORKER morphine and comfort measures. The patie nt is already a DNR/DNI and hospice. The patient has dilated cardiomyopathy; has a normal pressure h ydrocephalus; and history of coronary artery disease, status post percutaneous transluminal coronary angioplasty with stent placement. We will continue supportive care. All questions answered to the b est of my ability. We will check with discharge planning nurse, how we are going to manage his pain over the next several days. The patient may have to go home on a YOUTH CARE WORKER if that makes him most comforta ble in view of the severity of the pain caused by the underlying malignancy. I will speak to the PMD and the other members of the team involved in the care. Adrienne Varner MD cc: [id number] TT: 09/25/2016 00:11:36 Confirmation # [id number] Dictation # [id number] tn
[2016-09-25] MEDS: Morphine PCA 1 mg/ml (25ml) 25 ML IV PRN ×2 (02:31→16:17)
--- NOTE | 2016-09-25 08:42 | PN ---
DATE: 09/25/2016 SUBJECTIVE: The patient is seen and examined at bedside on the general medical king. He remains clinically unchanged overnight, and he is noted to have persistent episodes of hypotension, but otherwise there were no acute events overnight. OBJECTIVE: VITAL SIGNS: Temperature 97.4, pulse 43, blood pressure 78/33, respiratory rate 16, oxygen saturation 98% on room air. GENERAL: Frail, elderly man, lying in bed, who appears somnolent, but in no apparent distress. HEENT: PERRL. EOMI. No scleral icterus. Mild conjunctival pallor is noted. Mucous membranes are dry. NECK: No JVD, no bruits. LUNGS: Decreased breath sounds at the bases with bibasilar crackles. CARDIOVASCULAR: Regular rate and rhythm. Normal S1 and S2. ABDOMEN: Normoactive bowel sounds. Soft. Mildly distended. No rigidity, no tympany. EXTREMITIES: No edema. NEUROLOGIC: Somnolent, but arousable to tactile stimuli. Not following commands, able to move all extremities. LABORATORY DATA: No new labs. ASSESSMENT: The patient is a 66-year-old man with multiple medical comorbidities including newly diagnosed stage IV pancreatic adenocarcinoma who presented to [facility] from home hospice for evaluation of a several-day history of increasing abdominal distention and worsening confusion who is now status post therapeutic paracentesis with removal of 3.5 liters of vamshi-colored fluid. PLAN: 1. Recurrent ascites. Etiology likely secondary to underlying malignancy with hepatic metastases. Input from Dr. Francisco Matos noted and greatly appreciated, and the patient is status post removal of 3.5 liters of vamshi fluid. 2. Metastatic adenocarcinoma of likely pancreatic origin. Input from Dr. Varner noted and greatly appreciated. The patient has been started on morphine MARKETING SEGMENT MANAGER with significant improvement in pain control. The patient is also status post celiac plexus block with Dr. Brito on his prior admission so as to mitigate pain symptoms. A discussion will have to be had with the family regarding possible discharge back to home hospice on MARKETING SEGMENT MANAGER pump. 3. Altered mental status, etiology likely multifactorial secondary to toxic metabolic encephalopathy superimposed on underlying dementia. The patient remains clinically unchanged. 4. Dilated cardiomyopathy. 5. Urinary retention. The patient remains with Gu catheter in place and with vamshi-colored urine. 6. Normal pressure hydrocephalus, chronic. 7. CAD, status PCI with stent placement. 8. Microcytic anemia. 9. Alzheimer's dementia. CODE STATUS: DNR/DNI. Tom Powell MD cc: [phone] TT: 09/25/2016 08:41:09 Confirmation # [id number] Dictation # [id number] jn [id number]
--- NOTE | 2016-09-25 21:13 | DS ---
ADMITTING DIAGNOSIS: Recurrent ascites secondary to underlying stage IV adenocarcinoma of the pancre as. DISCHARGE DIAGNOSES: Recurrent ascites secondary to stage IV adenocarcinoma of the pancreas, status post therapeutic paracentesis. SECONDARY DIAGNOSES: Hyponatremia, dilated cardiomyopathy, urinary retention, normal pressure hydroc ephalus (chronic), Alzheimer's dementia, coronary artery disease status post percutaneous coronary in tervention with stent placement, microcytic anemia, posttraumatic stress disorder and anxiety disorde r. CONSULTATIONS: Dr. Varner (hematology/oncology), Dr. Francisco Matos (interventional radiology) and Darlin Hyde (palliative care). PROCEDURES: Abdominal paracentesis with removal of 3.5 liters of vamshi fluid. HISTORY OF PRESENT ILLNESS: The patient is a 66-year-old man with multiple medical comorbidities inc luding newly diagnosed metastatic pancreatic adenocarcinoma who was recently discharged from [facility] (09/16/2016) after an admission for altered mental status and increased abdominal dist ention. It was during this admission that the patient was diagnosed with stage IV pancreatic cancer and arrangements were made at the request of the family for home hospice services. Over the last sev eral days; however, the patient was noted to have increasing abdominal distention and worsening confu colby which prompted his family to bring him to the Emergency Department. There was no report of naus ea, vomiting, diarrhea, fevers, chills or rigors. HOSPITAL COURSE: Upon admission to the Emergency Department, the patient was noted to be obtunded, b ut responsive to tactile stimuli. He was also noted to have significant abdominal distention. The p atient was evaluated by Dr. Francisco Matos and underwent therapeutic paracentesis with removal of 3.5 li ters of vamshi-colored fluid. The patient was evaluated by Dr. Varner and given his clinical deterio ration and increased pain, he was placed on a morphine DIRECTOR OF OCCUPATIONAL HEALTH. After a discussion with the patient's fa anne marie, it was decided that the patient would be placed on inpatient hospice given his continued deteri oration and arrangements were made to accommodate the family to have the patient placed in inpatient hospice. CONDITION: Critical. DISPOSITION: To inpatient hospice. Tom Powell MD cc: [phone] TT: 09/25/2016 21:13:05 sn
== END 2016-09-25 16:57 | disposition hospice, inpatient (51) | DRG 435 ==
LOC: ED 16:07 → ERH 17:10 → 3RNO 20:16 → OBSVTOIN 09-24 12:01
PROVIDERS: ADMIT Student in an Organized Health Care Education/Training Program; ATTEND Student in an Organized Health Care Education/Training Program
PROC: 0W9G3ZZ Drainage of Peritoneal Cavity, Percutaneous Approach (ICD-10-PCS; principal; 2016-09-23 16:00)
DX: C25.9 Malignant neoplasm of pancreas, unspecified (principal); R18.0 Malignant ascites; C78.7 Secondary malignant neoplasm of liver and intrahepatic bile duct; G92 Toxic encephalopathy; I95.9 Hypotension, unspecified; G91.2 (Idiopathic) normal pressure hydrocephalus; I42.0 Dilated cardiomyopathy; G30.9 Alzheimer's disease, unspecified; F02.80 Dementia in other diseases classified elsewhere, unspecified severity, without behavioral disturbance, psychotic disturbance, mood disturbance, and anxiety; E87.1 Hypo-osmolality and hyponatremia; D50.9 Iron deficiency anemia, unspecified; K59.00 Constipation, unspecified; I25.10 Atherosclerotic heart disease of native coronary artery without angina pectoris; F41.9 Anxiety disorder, unspecified; R33.9 Retention of urine, unspecified; Z66 Do not resuscitate; Z51.5 Encounter for palliative care; F43.10 Post-traumatic stress disorder, unspecified; Z95.5 Presence of coronary angioplasty implant and graft; Z87.891 Personal history of nicotine dependence; Z80.42 Family history of malignant neoplasm of prostate

== ENCOUNTER 2016-09-25 17:22 | Inpatient (IN) | payer OTHER ==
[2016-09-25 17:36] VITALS: BP 76/39; PULSE 84
[2016-09-25] MEDS: Morphine PCA 1 mg/ml (25ml) 25 ML IV PRN (17:53)
[2016-09-25 20:07] VITALS: RESP 12; O2SAT 91
[2016-09-26] MEDS ORDERED: Scopolamine 1.5 mg/24 hr Patch TD STA (10:00)
[2016-09-26] MEDS: Morphine PCA 1 mg/ml (25ml) 25 ML IV PRN (21:43)
--- NOTE | 2016-09-26 22:45 | HP ---
HISTORY OF PRESENT ILLNESS: The patient is a 66-year-old man with multiple medical comorbidities, in cluding newly diagnosed metastatic pancreatic adenocarcinoma, who was recently discharged from [facility] (09/16/2016) after an admission for altered mental status and increased abdominal di stention. It was during this admission that the patient was diagnosed with stage IV pancreatic cance r and arrangements were made for home hospice services. After being on home hospice for approximatel y 3 days, the patient was noted to have increasing abdominal distention and worsening confusion. The patient's daughter called her father's repairer screen crusher/oncologist. Recommendations were made to bring the patient to the Emergency Department. The patient was evaluated in the Emergency Department and underwent a therapeutic paracentesis, and will lackey his clinical deterioration arrangements were made for transfer to inpatient hospice. PAST MEDICAL HISTORY: As per HPI. Also, history of PTSD, anxiety disorder, CAD status post PCI with stent placement, dilated cardiomyopathy, Alzheimer dementia, and chronic normal pressure hydrocephal us. PAST SURGICAL HISTORY: As per HPI. Also, history of ventral hernia repair. ALLERGIES: No known drug allergies. MEDICATIONS: Morphine ULTRASOUND SPEC. FAMILY HISTORY: Significant for prostate cancer in the father. SOCIAL HISTORY: The patient reports a former [id number] smoking history and daily alcohol use (las t drink was approximately 2 or 3 weeks ago). He denies illicit drug abuse. REVIEW OF SYSTEMS: Unobtainable given altered mental status of the patient. PHYSICAL EXAMINATION: VITAL SIGNS: Temperature 98.4, pulse 80, blood pressure 76/39, respiratory rate 12, oxygen saturatio n 91% on room air. GENERAL: A frail, elderly man, lying in bed, responsive only to noxious stimuli. HEENT: PERRL. No scleral icterus. NECK: No JVD. LUNGS: Coarse breath sounds with bibasilar crackles. CARDIOVASCULAR: Bradycardic, normal S1 and S2. ABDOMEN: Normoactive bowel sounds. Mildly distended. No rigidity, no tympany. EXTREMITIES: No edema. NEUROLOGIC: Obtunded, but responsive to noxious stimuli. Withdraws extremities to noxious stimuli. LABORATORY DATA: No new labs. ASSESSMENT: The patient is a 66-year-old man with multiple medical comorbidities and newly diagnosed stage IV adenocarcinoma of the pancreas, who presented to [facility] from home hospice a nd is status post therapeutic paracentesis and who has now been transferred to the inpatient hospice king. PLAN: 1. Metastatic adenocarcinoma with likely pancreatic origin. Input from Dr. Varner is noted and antonieta reciated. Continue with current analgesic regimen as per Dr. Varner. 2. Recurrent ascites. 3. Dilated cardiomyopathy. 4. Urinary retention. 5. Normal pressure hydrocephalus. 6. CAD, status post PCI with stent placement. 7. Microcytic anemia. 8. Alzheimer dementia. CODE STATUS: Is DNR/DNI. Tom Powell MD cc: [phone] TT: 09/26/2016 22:44:39 karishma
--- NOTE | 2016-09-27 | CON ---
DATE: 09/26/[address] Varner. CHIEF COMPLAINT: Metastatic adenocarcinoma end-stage, on hospice. HISTORY OF PRESENT ILLNESS: The patient is a 66-year-old male, with family at the bedside, lying, ar ousal to painful stimuli, in a hospital bed on the medical floor, now placed on hospice as per his an d family's request. The patient is known to suffer from metastatic adenocarcinoma with ascitic fluid positive for malignancy, status post liver biopsy showing metastatic adenocarcinoma. He also suffer s from increased pain from abdominal distention with paracentesis with more than 5 liters of fluid re moved at that time with the patient now resting comfortably, in no acute distress. PAST MEDICAL HISTORY: As above. Anxiety disorder, ASCVD, cardiomyopathy, Alzheimer dementia, normal pressure hydrocephalus. MEDICATIONS: At present include Ativan, PLANT SCIENCES PROFESSOR morphine, scopolamine, and Tylenol. FAMILY HISTORY AND SOCIAL HISTORY: Former 35-year pack year history of smoking. Daily alcohol use, w hich he quit weeks prior to his admission. OBJECTIVE: VITAL SIGNS: Most recent vitals signs, as the computer system is down today: Yesterday's temperature 98.6, pulse 84, respirations 12, blood pressure 76/39, pulse ox 91%. HEENT: Unremarkable. NECK: Supple. HEART: Tachy rate, regular rhythm. LUNGS: Decreased breath sounds at the bases. Occasional crackles. ABDOMEN: Distended with tense ascites. EXTREMITIES: With +1 edema. NEUROLOGIC: He is somnolent but arousable to stimuli. LABORATORY DATA: Not being done as per the family's and the patient's hospice request. ASSESSMENT: End-stage, stage IV metastatic adenocarcinoma with comfort measures being implemented wi th analgesics with morphine PLANT SCIENCES PROFESSOR, scopolamine, Tylenol and Ativan as needed. As per kole Webb coordinator's, recommendations and as per Dr. Powell, his private doctor attending. We will continue comfort measures. Silviano Vu MD cc: [phone] TT: 09/26/2016 23:59:43 Confirmation # [id number] Dictation # [id number] ln
[2016-09-27 07:07] VITALS: TEMP 99.2
--- NOTE | 2016-09-27 08:15 | CP.PCM.CON ---
History of Present Illness - History of Present Illness History of Present Illness: Palliative consult requested by Dr Jam Powell Reason: Symptom management/ End of life care HPI:66 year old male who admitted with abdominal distention, intractable pain. History of metastatic pancreatic cancer. PMHx: pancreatic cancer, PTSD syndrome, anxiety disorder, CAD s/p stent, cardiomyopathy, Alzheimer type dementia, chronic controlled hydrocephalus, s/p ventral hernia repair. Family History: Non contributory. Social History: Former smoker, daily alcohol use. No illicit drug use. Advance Care Planning; The patient did not have an Adavcne Directive. He is hospice, DNR/DNI as per REENA Jaquez. Review of Systems: Unable to obtain, patient is unresponsive/non verbal. Past Patient History - Infectious Disease Hx of Infectious Diseases: None - Tetanus Immunizations Tetanus Immunization: Unknown - Past Social History Smoking Status: Never Smoked - CARDIAC Hx Cardiac Disorders: Yes Hx Hypercholesterolemia: Yes Hx Hypertension: Yes - PULMONARY Hx Respiratory Disorders: No - NEUROLOGICAL Hx Neurological Disorder: Yes Hx Alzheimer's Disease: Yes Hx Dementia: Yes - HEENT Hx HEENT Problems: Yes Hx Difficulty Chewing: Yes - RENAL Hx Chronic Kidney Disease: No - ENDOCRINE/METABOLIC Hx Endocrine Disorders: No - HEMATOLOGICAL/ONCOLOGICAL Hx Blood Disorders: No - INTEGUMENTARY Hx Dermatological Problems: No - MUSCULOSKELETAL/RHEUMATOLOGICAL Hx Musculoskeletal Disorders: Yes Hx Falls: Yes Hx Unsteady Gait: Yes - GASTROINTESTINAL Hx Gastrointestinal Disorders: Yes Hx Pancreatitis: Yes (pancreatic cancer mets to liver) - GENITOURINARY/GYNECOLOGICAL Hx Genitourinary Disorders: No - PSYCHIATRIC Hx Psychophysiologic Disorder: Yes Hx Anxiety: Yes Hx Depression: Yes Hx Post Traumatic Stress Disorder: Yes Hx Substance Use: No - SURGICAL HISTORY Hx Cardiac Catheterization: Yes Hx Coronary Stent: Yes - ANESTHESIA Hx Anesthesia Reactions: No Hx Malignant Hyperthermia: No Meds Allergies/Adverse Reactions: Allergies Allergy/AdvReac Type Severity Reaction Status Date / Time No Known Allergies Allergy Verified 08/17/16 12:03 - Medications Medications: Current Medications Acetaminophen (Tylenol 650 Mg Supp) 650 mg RC Q4H PRN PRN Reason: Fever >100.4 F Last Admin: 09/27/16 01:00 Dose: 650 mg Morphine Sulfate (Morphine Powder Coat Painter 1 Mg/Ml) 25 mls @ 1.5 mls/hr IV PRN PRN; 1.5 MG/ HR PRN Reason: ENTRY ANALYST PER MD ORDER Last Admin: 09/26/16 21:43 Dose: 1.5 mls/hr Lorazepam (Ativan) 0.5 mg IVP Q6H PRN; Protocol PRN Reason: Restlessness Physical Exam - Constitutional Appears: Cachectic, Chronically Ill - Head Exam Head Exam: NORMAL INSPECTION - Eye Exam Eye Exam: Scleral icterus - ENT Exam ENT Exam: Normal Oropharynx - Neck Exam Neck exam: Positive for: Normal Inspection - Respiratory Exam Respiratory Exam: Decreased Breath Sounds, NORMAL BREATHING PATTERN - Cardiovascular Exam Cardiovascular Exam: REGULAR RHYTHM, +S1, +S2 - GI/Abdominal Exam GI & Abdominal Exam: Diminished Bowel Sounds, Distended, Firm - Exam Additional comments: oligura - Extremities Exam Extremities exam: Positive for: pedal edema, pedal pulses present - Back Exam Back exam: NORMAL INSPECTION - Neurological Exam Neurological exam: Altered - Skin Skin Exam: Dry Additional comments: jaundice - Additional Findings Additional findings: Palliative performance scale rating 20 % Results - Vital Signs Recent Vital Signs: Last Vital Signs Temp 99.2 F 09/27/16 04:00 Pulse 84 09/25/16 20:06 Resp 12 09/25/16 20:06 BP 76/39 L 09/25/16 20:06 Pulse Ox 91 L 09/25/16 20:06 Assessment & Plan - Assessment and Plan (Free Text) Assessment: 66 abby old male with metastatic pancreatic cancer. Admitted to [facility] for management of abdominal distention, intractable pain Patient is lethargic. Responds to tactile stimuli. Audible upper airway secretions, gurgling. Daughter and son in law at bedside. Signs of impending explained. Psychosocial counseling provided Plan: Suction as needed. Scopolamine transdermal patch Continue Morphine infusion at continuos dosing 1.5 mg/hr, ENTRY ANALYST 0,5 mg q 15 as needed. Tylenol 650 mg RC as needed for temperature over 100F Ativan 0.5 mg as needed for restlessness/ agitation End of life family counseling - Date & Time Date: 09/26/16 Time: 10:00
--- NOTE | 2016-09-27 09:45 | PN ---
DATE: 09/27/2016 The patient is in room 364, bed 2. He is a hospice patient. It appears he has pancreatic cancer tootie t is metastatic. PHYSICAL EXAMINATION: VITAL SIGNS: Rectal temperature of 101.4, blood pressure 76/39. LUNGS: Clear. HEART: Regular rate and rhythm. ABDOMEN: Benign. NEUROLOGIC: The patient is heavily sedated. IMPRESSION: At this time is metastatic pancreatic cancer, history of atrial fibrillation, altered me ntal status, ascites and hyponatremia. Continue current regimen. Esteban Powell MD cc: [phone] TT: 09/27/2016 09:44:18 Confirmation # [id number] Dictation # [id number] en
[2016-09-27] MEDS: Morphine PCA 1 mg/ml (25ml) 25 ML IV PRN (10:46)
[2016-09-27] MEDS ORDERED: Morphine 2 mg/ml ISec IVP PRN (10:58)
--- NOTE | 2016-09-27 12:11 | CP.PCM.PN ---
Subjective - Date & Time of Evaluation Date of Evaluation: 09/27/16 Time of Evaluation: 10:00 - Subjective Subjective: Reacts to tactile stimuli. Tachycardia Objective - Vital Signs/Intake and Output Vital Signs (last 24 hours): Temp Pulse Resp BP Pulse Ox 99.2 F 84 12 76/39 L 91 L 09/27/16 04:00 09/25/16 20:06 09/25/16 20:06 09/25/16 20:06 09/25/16 20:06 Intake and Output: 09/27/16 09/27/16 06:59 18:59 Output Total 50 Balance -50 - Medications Medications: Current Medications Acetaminophen (Tylenol 650 Mg Supp) 650 mg RC Q4H PRN PRN Reason: Fever >100.4 F Last Admin: 09/27/16 01:00 Dose: 650 mg Morphine Sulfate (Morphine Bi Developer 1 Mg/Ml) 25 mls @ 2 mls/hr IV PRN PRN; 2 MG/HR PRN Reason: PROFESSOR OF ANTHROPOLOGY PER MD ORDER Lorazepam (Ativan) 0.5 mg IVP Q6H PRN; Protocol PRN Reason: Restlessness Morphine Sulfate (Morphine) 2 mg IVP Q4H PRN PRN Reason: espsodic pain - Constitutional Appears: Cachectic, Chronically Ill - Eye Exam Eye Exam: Scleral icterus - ENT Exam ENT Exam: Mucous Membranes Dry - Respiratory Exam Respiratory Exam: Decreased Breath Sounds Additional comments: irregular breathing pattern - Cardiovascular Exam Cardiovascular Exam: Tachycardia, +S1, +S2 - GI/Abdominal Exam GI & Abdominal Exam: Distended, Soft, Diminished Bowel Sounds - Extremities Exam Additional comments: 2+ edema of lower extremities - Neurological Exam Neurological Exam: Altered - Skin Skin Exam: Dry Additional comments: jaundice, sacral decubiti, left heel ulcer Assessment and Plan - Assessment and Plan (Free Text) Assessment: 66 year old male with metastatic adenocarcinoma, cirrhosis admitted to hospice services with abdominal distention, intractable pain. Family at beside. Impending signs of explained.Psychosocial support provided. Plan: C Change Morphine continuous infusion to 2 mg/hr, discontinue PROFESSOR OF ANTHROPOLOGY. Scopolamine transdermal patch, suction as needed Tylenol 650 mg RC for fevers Ativan 1 mg as needed for agitation Wound care. Heel guards
--- NOTE | 2016-09-27 14:22 | CP.PCM.PRO ---
Pronouncement of Note - Clinical Findings Physical Exam: No Response Verbal/Painful Stimuli, Absent Peripheral Pulses{ Carotid & Femoral}, Absent Heart & Breath Sounds, No Pupillary Light Reflex, No Corneal Reflex, Pupils Fixed & Dilated, Absence of Vital Signs - Pronouncement Time Time of Pronouncement of : 14:10 (Pt at 1:25 PM) - Notifications Pronouncement Notifications: Family Notified (family is by bedside,they were notified of patient's expiration.), Atending Notified Mine Boss Notified: No - Autopsy Autopsy Requested: No [place] [id number] Additional Comments: Total time spent on this patient :25 mins.
[2016-09-27] MEDS ORDERED: Morphine PCA 1 mg/ml (25ml) 25 ML IV PRN (17:38)
--- NOTE | 2016-09-27 17:59 | PN ---
DATE: 09/27/2016 The patient is in room 364, bed 2. SUBJECTIVE: The patient was seen earlier in the day along with the patient's daughter and son-in-law . The patient is terminal at this time. He is on a DEHAIRING MACHINE TENDER infusion morphine. VITAL SIGNS: At this time, even though he is afebrile, pulse is 94, respirations 12, blood pressure is 76/39, pulse ox is 91. MEDICATIONS: The patient's medications were reviewed. PHYSICAL EXAMINATION: GENERAL: The patient is chronically ill looking, responds only to deep stimuli. HEENT: Examination of the oropharynx reveals it to be dry. LUNGS: Relatively clear. There is a rattle heard from retained secretions. ABDOMEN: Distended at this time related to his ascites and metastatic cancer. EXTREMITIES: He has 2+ edema of the lower extremities. ASSESSMENT NOTES AND PLAN: Detailed discussion with the patient's family, counseling done. We will continue supportive care. In my opinion, the end is imminent, it could be anytime today or in the mo rning. All questions asked by the family were fully answered. Adrienne Varner MD cc: [phone] TT: 09/27/2016 17:59:10 Confirmation # [id number] Dictation # [id number] jn
--- NOTE | 2016-10-02 12:36 | DS ---
ADMITTING DIAGNOSIS: Stage IV adenocarcinoma of the pancreas. DISCHARGE DIAGNOSES: Stage IV adenocarcinoma of the pancreas. SECONDARY DIAGNOSES: Recurrent ascites secondary to underlying stage IV adenocarcinoma of the pancre as, hyponatremia, dilated cardiomyopathy, normal pressure hydrocephalus (chronic), Alzheimer's evangelina ia, coronary artery disease status post percutaneous coronary intervention with stent placement, micr ocytic anemia, PTSD, anxiety disorder. CONSULTATIONS: Dr. Varner (hematology/oncology), Suki Hyde (palliative care). HISTORY OF PRESENT ILLNESS: The patient is a 66-year-old man with multiple medical comorbidities inc luding newly diagnosed metastatic pancreatic adenocarcinoma who was recently discharged from [facility] to home hospice after being admitted for altered mental status and increased abdominal distention. It was during this admission that the patient was diagnosed with stage IV pancreatic ca ncer and arrangements were made at the request of the family for home hospice services. After approx imately 3-4 days on home hospice, the patient was noted to have increasing abdominal distention and c onfusion and at the advice of the patient's machine or machinery mechanic/oncologist the daughter had brought the carla ent to the Emergency Department. Given the patient's clinical deterioration, the patient was transfe rred to inpatient hospice at the request of the family. HOSPITAL COURSE: Upon admission to the inpatient hospice unit the patient was maintained on a morphi ne FIBREGLASS LAMINATOR. Over the following 24-36 hours, he was noted to become more obtunded, hypotensive, and heena cardic, and on hospice day #2 the patient had . He was evaluated by Dr. Bo and pronounce d at 1:25 p.m. Tom Powell MD cc: [phone] TT: 10/02/2016 12:35:15 jamari
== END 2016-09-27 15:10 | DRG 436 ==
LOC: 3RNO 17:22
PROVIDERS: ADMIT Student in an Organized Health Care Education/Training Program; ATTEND Student in an Organized Health Care Education/Training Program
DX: C25.9 Malignant neoplasm of pancreas, unspecified (principal); R18.0 Malignant ascites; C78.7 Secondary malignant neoplasm of liver and intrahepatic bile duct; Z51.5 Encounter for palliative care; Z66 Do not resuscitate; I42.0 Dilated cardiomyopathy; G91.2 (Idiopathic) normal pressure hydrocephalus; I48.91 Unspecified atrial fibrillation; E87.1 Hypo-osmolality and hyponatremia; I25.10 Atherosclerotic heart disease of native coronary artery without angina pectoris; G30.9 Alzheimer's disease, unspecified; F02.80 Dementia in other diseases classified elsewhere, unspecified severity, without behavioral disturbance, psychotic disturbance, mood disturbance, and anxiety; R33.9 Retention of urine, unspecified; K74.60 Unspecified cirrhosis of liver; F43.10 Post-traumatic stress disorder, unspecified; Z87.891 Personal history of nicotine dependence; Z95.5 Presence of coronary angioplasty implant and graft; Z80.42 Family history of malignant neoplasm of prostate